=== PATIENT | female | born 1945 | race Caucasian/White ===

== ENCOUNTER 2016-04-06 06:28 | Emergency (ER) | payer MEDICARE, MEDICAID ==
[2016-04-06 08:19] LABS: Hematocrit 42 % (35-47); Hemoglobin 14.2 g/dl (12.0-16.0); Mean Corpuscular HGB Conc 34 g/dl (31-36); Mean Corpuscular Hemoglobin 30 pg (27-31); Mean Corpuscular Volume 89 fL (80-97); Mean Platelet Volume 9 um3 (7.4-10.4); Red Cell Distribution Width 14 % (10.5-15); White Blood Count 9.3 10^3/ul (3.5-10.8)
[2016-04-06 08:22] LABS: Urine Bilirubin Negative (Negative); Urine Glucose 3+(>=500 mg/dL) (Negative); Urine Nitrite Negative (Negative)
--- NOTE | 2016-04-06 08:28 | RAD ---
Indication: Fall from leg weakness, back pain. CT of the lumbar spine was obtained in the axial plane. Sagittal and coronal reconstructed images were obtained. The vertebral bodies appear normal in height. Mild levoscoliosis centered at L2-L3 is noted. No compression fracture is noted. At L5-S1 there is no disc protrusion. No central or foraminal stenosis is noted. Mild facet arthropathy is noted. At L4-L5 no disc protrusion is noted. No central or foraminal stenosis is noted. At L3-L4 degenerative disc disease with broad-based protrusion flattens the thecal sac. No definite foraminal stenosis is noted although mild ligamentous hypertrophy is noted with likely mild spinal stenosis at the L3-L4 level. At L2-L3 vacuum disc phenomenon is noted. Broad-based protrusion flattens the thecal sac. Mild facet and ligamentous hypertrophy is noted. Mild spinal stenosis is noted. At L1-L2 are based protrusion flattens the thecal sac. No central or foraminal stenosis is identified. At T12-L1 degenerative disc disease with spondylytic ridge flattens the thecal sac. IMPRESSION: NO FRACTURE IS NOTED. DEGENERATIVE DISC DISEASE AT L3-L4 WITH BROAD-BASED PROTRUSION AND MILD SPINAL STENOSIS. L2-L3 DEGENERATIVE DISC DISEASE WITH BROAD-BASED PROTRUSION WITH MILD SPINAL STENOSIS. DEGENERATIVE DISC DISEASE AT L1-L2 IS NOTED WITH BROAD-BASED PROTRUSION.
[2016-04-06 08:30] LABS: BUN/Creatinine Ratio 16.7 (8-20); C Reactive Protein 3.62 mg/L (< 5.00); Calcium 9.2 mg/dL (8.6-10.3); EGFR Non-African American 80.1 (>60); Globulin 2.6 g/dL (2-4); Potassium 3.8 mmol/L (3.5-5.0); Total Bilirubin 0.4 mg/dL (0.2-1.0); Total Protein 6.6 g/dL (6.4-8.9)
--- NOTE | 2016-04-06 10:03 | ED ---
Dex Silva Adam, scribed for Randall Leigh MD on 04/06/16 at 0733 . Complex/Multi-Sys Presentation - HPI Summary HPI Summary: Pt is a 70 year old female presenting with intermittent episodes of losing balance since she fell 1 month ago. She states that as she was standing up from the couch 1 month ago she fell over the coffee table. She is unsure what caused her to fall but she was unable to stand up and she was taken by EMS to the hospital for X-Rays which were negative. Since then she has been having daily episodes of losing her balance and falling or feeling like she is going to fall. This morning she fell over as she was standing up from her bed, so she decided to come to the ED. She states that her legs "feel weird". She also has chronic back pain but reports increased pain in her lower back since the fall 1 month ago. PMHx of herniated discs, DM, and cardiac stents. - History Of Current Complaint Chief Complaint: EDWeakness Time Seen by Provider: 04/06/16 07:21 Hx Obtained From: Patient Onset/Duration: Gradual Onset, Lasting Weeks, Still Present Timing: Constant Severity Currently: Moderate Severity Initially: Moderate Location: Pain At: - Lower back Aggravating Factor(s): Ambulation Alleviating Factor(s): Nothing Associated Signs And Symptoms: Positive: Dizziness, Back Pain, Remote Trauma - Fall 1 month ago, Other - "Legs feel weird" - Allergies/Home Medications Allergies/Adverse Reactions: Allergies Allergy/AdvReac Type Severity Reaction Status Date / Time Tetanus Toxoid Allergy Severe Hives Verified 02/16/14 10:01 Ibuprofen Allergy Rash Verified 02/16/14 10:01 Lisinopril Allergy Swelling Verified 04/06/16 06:49 Of Face,Lips,& Throat Metronidazole [From Flagyl] AdvReac Diarrhea Verified 02/16/14 10:01 Sulfa Antibiotics AdvReac Vomiting Verified 02/16/14 10:01 STEROID AdvReac Severe ELEVATE Uncoded 02/16/14 10:01 BLOOD SUGAR BETA BLOCKERS AdvReac Intermediate Stomach Uncoded 02/16/14 10:01 Cramps PMH/Surg Hx/FS Hx/Imm Hx Endocrine/Hematology History: Reports: Hx Diabetes Denies: Hx Thyroid Disease Cardiovascular History: Denies: Hx Hypertension, Hx Pacemaker/ICD Respiratory History: Denies: Hx Asthma, Hx Chronic Obstructive Pulmonary Disease (COPD) GI History: Reports: Other GI Disorders - acid reflux Denies: Hx Ulcer Musculoskeletal History: Reports: Other Musculoskeletal History - hx of bulging discs and sciatic nerve problems Denies: Hx Scoliosis Sensory History: Denies: Hx Contacts or Glasses, Hx Hearing Aid Opthamlomology History: Denies: Hx Contacts or Glasses Neurological History: Denies: Hx Headaches, Other Neuro Impairments/Disorders Psychiatric History: Denies: Hx Panic Disorder - Surgical History Surgery Procedure, Year, and Place: right wrist surgery, titanium bar in place. 3 Cardiac stents -XIENCE V - MRI CONDITIONAL 5 UP TO 3T : 06/11/08 - Immunization History Date of Tetanus Vaccine: UNK Date of Influenza Vaccine: 01/10/16 Infectious Disease History: No Infectious Disease History: Denies: Hx Hepatitis, Hx Human Immunodeficiency Virus (HIV), Traveled Outside the [place] in Last 30 Days - Family History Known Family History: Positive: Cardiac Disease - Father, Diabetes - Mother, Children Family History: FHx of [place] (father) - Social History Occupation: Retired Lives: With Family - Daughter Alcohol Use: None Hx Substance Use: No Substance Use Type: Reports: None Hx Tobacco Use: Yes Smoking Status (MU): Heavy Every Day Tobacco Smoker Type: Cigarettes Amount Used/How Often: 1 ppd Review of Systems Positive: Myalgia - Lower back Neurological: Other - Dizziness, "legs feel weird" All Other Systems Reviewed And Are Negative: Yes Physical Exam Triage Information Reviewed: Yes Vital Signs On Initial Exam: Initial Vitals Temp Pulse Resp BP Pulse Ox 98.0 F 84 17 162/77 96 04/06/16 06:28 04/06/16 06:28 04/06/16 06:28 04/06/16 06:28 04/06/16 06:28 Vital Signs Reviewed: Yes Appearance: Positive: Well-Appearing, No Pain Distress Skin: Positive: Warm, Skin Color Reflects Adequate Perfusion, Dry Head/Face: Positive: Normal Head/Face Inspection Eyes: Positive: Normal ENT: Positive: Normal ENT inspection Neck: Positive: Supple, Nontender Respiratory/Lung Sounds: Positive: Clear to Auscultation, Breath Sounds Present Cardiovascular: Positive: RRR Abdomen Description: Positive: Nontender, Soft Bowel Sounds: Positive: Present Musculoskeletal: Positive: Normal Neurological: Positive: Normal, Sensory/Motor Intact, Alert, Oriented to Person Place, Time Psychiatric: Positive: Normal, Affect/Mood Appropriate - [place] Coma Scale Coma Scale Total: 15 Diagnostics - Vital Signs Vital Signs Temp Pulse Resp BP Pulse Ox 04/06/16 06:28 98.0 F 84 17 162/77 96 - Laboratory Lab Results: Lab Results 04/06/16 04/06/16 04/06/16 Range/Units 07:56 07:56 08:01 WBC 9.3 (3.5-10.8) 10^3/ul RBC 4.70 (4.0-5.4) 10^6/ul Hgb 14.2 (12.0-16.0) g/dl Hct 42 (35-47) % MCV 89 (80-97) fL MCH 30 (27-31) pg MCHC 34 (31-36) g/dl RDW 14 (10.5-15) % Plt Count 176 (150-450) 10^3/ul MPV 9 (7.4-10.4) um3 Neut % (Auto) 75.8 (38-83) % Lymph % (Auto) 15.5 L (25-47) % [place] % (Auto) 7.2 (1-9) % Eos % (Auto) 1.1 (0-6) % Baso % (Auto) 0.4 (0-2) % Absolute Neuts (auto) 7.0 (1.5-7.7) 10^3/ul Absolute Lymphs (auto) 1.4 (1.0-4.8) 10^3/ul Absolute Monos (auto) 0.7 (0-0.8) 10^3/ul Absolute Eos (auto) 0.1 (0-0.6) 10^3/ul Absolute Basos (auto) 0 (0-0.2) 10^3/ul Absolute Nucleated RBC 0 10^3/ul Nucleated RBC % 0 Sodium 135 (133-145) mmol/L Potassium 3.8 (3.5-5.0) mmol/L Chloride 102 (101-111) mmol/L Carbon Dioxide 28 (22-32) mmol/L Anion Gap 5 (2-11) mmol/L BUN 12 (6-24) mg/dL Creatinine 0.72 (0.51-0.95) mg/dL Est GFR ( Amer) 103.0 (>60) Est GFR (Non-Af Amer) 80.1 (>60) BUN/Creatinine Ratio 16.7 (8-20) Glucose 220 H (70-100) mg/dL Calcium 9.2 (8.6-10.3) mg/dL Total Bilirubin 0.40 (0.2-1.0) mg/dL AST 14 (13-39) U/L ALT 16 (7-52) U/L Alkaline Phosphatase 68 (34-104) U/L C-Reactive Protein 3.62 (< 5.00) mg/L Total Protein 6.6 (6.4-8.9) g/dL Albumin 4.0 (3.2-5.2) g/dL Globulin 2.6 (2-4) g/dL Albumin/Globulin Ratio 1.5 (1-3) Urine Color Yellow Urine Appearance Clear Urine pH 5.0 (5-9) Ur Specific [place] 1.008 L (1.010-1.030) Urine Protein Negative (Negative) Urine Ketones Negative (Negative) Urine Blood Negative (Negative) Urine Nitrate Negative (Negative) Urine Bilirubin Negative (Negative) Urine Urobilinogen Negative (Negative) Ur Leukocyte Esterase Negative (Negative) Urine Glucose 3+(>=500 mg/dl) H (Negative) Result Diagrams: 04/06/16 07:56 04/06/16 07:56 Lab Statement: Any lab studies that have been ordered have been reviewed, and results considered in the medical decision making process. - CT Lumbar Spine CT Interpretation Completed By: Radiologist - IMPRESSION: NO FRACTURE IS NOTED. DEGENERATIVE DISC DISEASE AT L3-L4 WITH BROAD-BASED PROTRUSION AND MILD SPINAL STENOSIS. L2-L3 DEGENERATIVE DISC DISEASE WITH BROAD-BASED PROTRUSION WITH MILD SPINAL STENOSIS. DEGENERATIVE DISC DISEASE AT L1-L2 IS NOTED WITH BROAD- BASED PROTRUSION. - Additional Comments Diagnostic Additional Comments: Glucose - 220 Complex Multi-Symp Course/Dx Course Of Treatment: Ms. Georges presented with essentially two C/O. Low back pain that has been worse since her fall a couple months ago and vague episodes of loss of balance occuring in the same time frame. She denies legs giving out or weakness. A CT of her lumbar spine showed no acute injury but severe arthritic changes. She was given a prescription for out-patient MRI of her brain to evaluate her balance issues. - Diagnoses Provider Diagnoses: Low back pain Discharge - Discharge Plan Condition: Stable Disposition: HOME Patient Education Materials: Back Pain (ED) Referrals: Eugene Chavis MD [Medical Doctor] - Additional Instructions: Follow up with Dr. Chavis. Call Central Scheduling at to schedule outpatient MRI. The documentation as recorded by the Dex altamirano Adam accurately reflects the service I personally performed and the decisions made by me, Randall Leigh MD.
[2016-04-06 11:24] VITALS: BP 176/76
== END 2016-04-06 10:00 | disposition home or self-care (01) ==
LOC: ED 06:28
DX: M54.5 Low back pain (principal); F17.210 Nicotine dependence, cigarettes, uncomplicated
CPT/HCPCS: 36415; 72131; 80053; 81003; 85025; 86140

== ENCOUNTER 2016-04-08 07:36 | Inpatient (IN) | payer MEDICARE, MEDICAID ==
[2016-04-08] MEDS ORDERED: Aspirin Low Dose CHEW TAB* 81 MG ONE (09:04)
[2016-04-08] MEDS ORDERED: Aspirin Low Dose CHEW TAB* 81 MG PO ONE (09:07)
[2016-04-08 11:58] LABS: Hematocrit 42 % (35-47); Hemoglobin 13.8 g/dl (12.0-16.0); Mean Corpuscular HGB Conc 33 g/dl (31-36); Mean Corpuscular Hemoglobin 30 pg (27-31); Mean Corpuscular Volume 89 fL (80-97); Mean Platelet Volume 9 um3 (7.4-10.4); Red Blood Count 4.67 10^6/ul (4.0-5.4); Red Cell Distribution Width 15 % (10.5-15); White Blood Count 8.5 10^3/ul (3.5-10.8)
[2016-04-08 12:10] LABS: Albumin 4.2 g/dL (3.2-5.2); BUN/Creatinine Ratio 13.6 (8-20); Calcium 9.5 mg/dL (8.6-10.3); EGFR African American 89.9 (>60); EGFR Non-African American 69.9 (>60); Globulin 2.5 g/dL (2-4); Total Bilirubin 0.5 mg/dL (0.2-1.0); Total Protein 6.7 g/dL (6.4-8.9)
[2016-04-08 12:15] LABS: Troponin I 0.01 ng/mL (<0.04)
--- NOTE | 2016-04-08 12:25 | RAD ---
INDICATION: Weakness COMPARISON: May 13, 2014 TECHNIQUE: An AP portable view obtained at 1215 hours is submitted. FINDINGS: Bones/Soft Tissues: There are no acute bony findings. Cardiomediastinal: The cardiomediastinal silhouette is normal. Lungs: There are no infiltrates. Pleura: There are no pleural effusions. Other: None IMPRESSION: NO ACTIVE DISEASE
[2016-04-08] MEDS ORDERED: Dextrose 50% Syringe 50 ML* 25 GM/50 ML SYRINGE IV PUSH PRN (13:01)
--- NOTE | 2016-04-08 13:18 | RAD ---
INDICATION: Neck pain weakness COMPARISON: None TECHNIQUE: Noncontrast axial source images was performed from the skull base to the thoracic inlet. Coronal and and sagittal reformatted images were generated. FINDINGS: Vertebrae: There is no fracture or acute focal bony lesion. There are arthritic changes with mild disc space narrowing at C4-C5 and moderate narrowing about C5-C6. There is anterior vertebral spur formation and uncinate process spurring both levels leading to mild bilateral foraminal narrowing. There is posterior spondylitic formation as well into mild decrease in AP diameter canal. Alignment: The craniocervical junction appears normal. The cervical vertebrae are normally aligned. Central Canal: There are no significant CT abnormalities of the central canal or foramina. MR imaging is a more sensitive method to evaluate the canal and foramina. Intervertebral disc spaces: The disc spaces are maintained. Brain: The visualized brain appears unremarkable. Soft tissues: The visualized soft tissue elements of the neck are unremarkable. The prevertebral soft tissues appear normal. The lung apices are clear. IMPRESSION: MILD TO MODERATE MIDCERVICAL OSTEOARTHRITIC FINDINGS.
[2016-04-08] MEDS ORDERED: Atorvastatin* 80 MG TAB PO ONE (14:40)
--- NOTE | 2016-04-08 15:28 | ED ---
Lara Silva Anna, scribed for Greg Diehl MD on 04/08/16 at 0823 . Lower Extremity - HPI Summary HPI Summary: Patient is a 70 y/o female coming to [facility] presenting with worsening leg weakness that began two months ago. She reports no pain, but she is not able to lift her leg when she tries. This is worse in her left leg than her right leg. She also has trouble staying up when she is sitting. She took an abx prescribed from [place] at Dr. Langford office two months ago for an ear infection and attributes the beginning of the symptoms to that time. She was also prescribed Lisinopril for HTN and received PNA and flu shots at that time. She says loss of mobility is one of the side effects of the abx. She reports angioedema of her neck and edema of her throat. She additionally reports left arm weakness that began yesterday. She reports some numbness in her legs as a result of her DM. She denies numbness in abd, CP, SOB, changes in urination, changes in BM, or ear pain. Before this, on January 10, she fell from a standing position and hit her head and the right side of her body on a hard but carpeted floor. Her CT results at that time revealed nothing abnormal. Hx of DM, HTN, cardiac stents, and herniated discs. IF THERE IS ONE, PLEASE SEE DICTATION BY DR. DIEHL FOR FURTHER INFORMATION. - History of Current Complaint Chief Complaint: EDExtremityLower Stated Complaint: DIFF WALKING Time Seen by Provider: 04/08/16 08:00 Hx Obtained From: Patient Onset/Duration: Still Present Pain Intensity: 0 Pain Scale Used: 0-10 Numeric Timing: Constant, Lasting Weeks Associated Signs And Symptoms: Positive: Weakness Aggravating Factor(s): Ambulation - Allergies/Home Medications Allergies/Adverse Reactions: Allergies Allergy/AdvReac Type Severity Reaction Status Date / Time Tetanus Toxoid Allergy Severe Hives Verified 04/08/16 13:17 Ibuprofen Allergy Rash Verified 04/08/16 13:17 Lisinopril Allergy Swelling Verified 04/08/16 13:17 Of Face,Lips,& Throat Metronidazole [From Flagyl] AdvReac Diarrhea Verified 04/08/16 13:17 Sulfa Antibiotics AdvReac Vomiting Verified 04/08/16 13:17 STEROID AdvReac Severe ELEVATE Uncoded 04/08/16 13:17 BLOOD SUGAR BETA BLOCKERS AdvReac Intermediate Stomach Uncoded 04/08/16 13:17 Cramps PMH/Surg Hx/FS Hx/Imm Hx Endocrine/Hematology History: Reports: Hx Diabetes Denies: Hx Thyroid Disease Cardiovascular History: Reports: Hx Hypertension - recent onset, about 2 months ago Denies: Hx Pacemaker/ICD Respiratory History: Denies: Hx Asthma, Hx Chronic Obstructive Pulmonary Disease (COPD) GI History: Reports: Other GI Disorders - acid reflux Denies: Hx Ulcer Musculoskeletal History: Reports: Other Musculoskeletal History - hx of bulging discs and sciatic nerve problems Denies: Hx Scoliosis Sensory History: Denies: Hx Contacts or Glasses, Hx Hearing Aid Opthamlomology History: Denies: Hx Contacts or Glasses Neurological History: Denies: Hx Headaches, Other Neuro Impairments/Disorders Psychiatric History: Denies: Hx Panic Disorder - Surgical History Surgery Procedure, Year, and Place: right wrist surgery, titanium bar in place. 3 Cardiac stents -XIENCE V - MRI CONDITIONAL 5 UP TO 3T : 06/11/08 - Immunization History Date of Tetanus Vaccine: UNK Date of Influenza Vaccine: 01/10/16 Infectious Disease History: No Infectious Disease History: Denies: Hx Hepatitis, Hx Human Immunodeficiency Virus (HIV), Traveled Outside the [place] in Last 30 Days - Family History Known Family History: Positive: Cardiac Disease - Father, Diabetes - Mother, Children Family History: FHx of [place] (father) - Social History Occupation: Retired Lives: With Family Alcohol Use: None Hx Substance Use: No Substance Use Type: Reports: None Hx Tobacco Use: Yes Smoking Status (MU): Heavy Every Day Tobacco Smoker Type: Cigarettes Amount Used/How Often: 1 ppd Review of Systems Constitutional: Negative Eyes: Negative ENT: Other - edema of throat Cardiovascular: Negative Respiratory: Negative Gastrointestinal: Negative Genitourinary: Negative Positive: Edema - neck Skin: Negative Positive: Weakness - bilateral lower extremities and left arm, Numbness - bilateral legs, baseline with DM Psychological: Normal All Other Systems Reviewed And Are Negative: Yes - Comments Additional Review of Systems Comments: IF THERE IS ONE, PLEASE SEE DICTATION BY DR. DIEHL FOR FURTHER INFORMATION. Physical Exam - Summary Physical Exam Summary: GENERAL: Awake, alert, oriented, no acute distress, very pleasant, normal phonation HEENT: Head is normocephalic, atraumatic, pupils equal round reactive to light, no photophobia, extraocular muscles intact, no facial droop, anicteric sclera, pink conjunctiva, mucous membranes moist, no erythema, no discharge, no lesions , neck is soft, neck is supple, no carotid bruit , trachea is midline, no JVD. CARDIAC: Regular rate and rhythm, S1, S2, no rub, no murmur, no gallop, 2+ radial and pedal pulses bilaterally RESPIRATORY: Clear to auscultation bilaterally with no rales, rhonchi, or wheezes, non-tender ABDOMEN: Bowel sounds positive, no bruit, soft non-tender, no CVA tenderness, normal rectal tone. EXTREMITIES: No edema, warm, dry, 2+ pulses NEUROLOGICAL: Cranial nerves II through XII intact five out of five flexor and extensor strength in upper extremities symmetrically, 2+ DTRs in upper extremities symmetrically, 4/5 stregnth right hip flexior and extendors, 4/5 right knee flex and extendor, 4/5 right ankle flenor and extendor. 3/5 flexor and extendor strength left hip, 4/5 flexor and extendor left knee, 4/5 flexor and extendor left ankle. 2+ pateller dtr bilat, 2+ ankle dtr bilat, pronator drift, n, normal rapid alternating movements, downgoing Babinski, equal sensation bilat lower extremities. symmentric vibratory sensation bilat. Triage Information Reviewed: Yes Vital Signs On Initial Exam: Initial Vitals Temp Pulse Resp BP Pulse Ox 99.5 F 85 16 174/84 93 04/08/16 07:38 04/08/16 07:38 04/08/16 07:38 04/08/16 07:38 04/08/16 07:38 Vital Signs Reviewed: Yes - [place] Coma Scale Coma Scale Total: 15 Diagnostics - Vital Signs Vital Signs Temp Pulse Resp BP Pulse Ox 04/08/16 07:38 99.5 F 85 16 174/84 93 - Laboratory Lab Results: Lab Results 04/08/16 04/08/16 04/08/16 Range/Units 11:45 11:45 11:45 WBC 8.5 (3.5-10.8) 10^3/ul RBC 4.67 (4.0-5.4) 10^6/ul Hgb 13.8 (12.0-16.0) g/dl Hct 42 (35-47) % MCV 89 (80-97) fL MCH 30 (27-31) pg MCHC 33 (31-36) g/dl RDW 15 (10.5-15) % Plt Count 207 (150-450) 10^3/ul MPV 9 (7.4-10.4) um3 Neut % (Auto) 72.2 (38-83) % Lymph % (Auto) 17.9 L (25-47) % [place] % (Auto) 7.8 (1-9) % Eos % (Auto) 1.3 (0-6) % Baso % (Auto) 0.8 (0-2) % Absolute Neuts (auto) 6.1 (1.5-7.7) 10^3/ul Absolute Lymphs (auto) 1.5 (1.0-4.8) 10^3/ul Absolute Monos (auto) 0.7 (0-0.8) 10^3/ul Absolute Eos (auto) 0.1 (0-0.6) 10^3/ul Absolute Basos (auto) 0.1 (0-0.2) 10^3/ul Absolute Nucleated RBC 0 10^3/ul Nucleated RBC % 0 INR (Anticoag Therapy) 0.94 (0.89-1.11) APTT 28.8 (26.0-36.3) seconds Sodium 136 (133-145) mmol/L Potassium 4.0 (3.5-5.0) mmol/L Chloride 101 (101-111) mmol/L Carbon Dioxide 28 (22-32) mmol/L Anion Gap 7 (2-11) mmol/L BUN 11 (6-24) mg/dL Creatinine 0.81 (0.51-0.95) mg/dL Est GFR ( Amer) 89.9 (>60) Est GFR (Non-Af Amer) 69.9 (>60) BUN/Creatinine Ratio 13.6 (8-20) Glucose 183 H (70-100) mg/dL Lactic Acid (0.5-2.0) mmol/L Calcium 9.5 (8.6-10.3) mg/dL Total Bilirubin 0.50 (0.2-1.0) mg/dL AST 15 (13-39) U/L ALT 17 (7-52) U/L Alkaline Phosphatase 62 (34-104) U/L Total Creatine Kinase 120 (10-223) U/L CK-MB (CK-2) 5.0 (0.6-6.3) ng/mL Myoglobin 95.0 H (14.3-65.8) ng/mL Troponin I 0.01 (<0.04) ng/mL B-Natriuretic Peptide ( - 100) pg/mL Total Protein 6.7 (6.4-8.9) g/dL Albumin 4.2 (3.2-5.2) g/dL Globulin 2.5 (2-4) g/dL Albumin/Globulin Ratio 1.7 (1-3) Triglycerides 206 mg/dL Cholesterol 259 mg/dL LDL Cholesterol 181 mg/dL HDL Cholesterol 37.0 mg/dL 04/08/16 04/08/16 Range/Units 11:45 11:45 WBC (3.5-10.8) 10^3/ul RBC (4.0-5.4) 10^6/ul Hgb (12.0-16.0) g/dl Hct (35-47) % MCV (80-97) fL MCH (27-31) pg MCHC (31-36) g/dl RDW (10.5-15) % Plt Count (150-450) 10^3/ul MPV (7.4-10.4) um3 Neut % (Auto) (38-83) % Lymph % (Auto) (25-47) % [place] % (Auto) (1-9) % Eos % (Auto) (0-6) % Baso % (Auto) (0-2) % Absolute Neuts (auto) (1.5-7.7) 10^3/ul Absolute Lymphs (auto) (1.0-4.8) 10^3/ul Absolute Monos (auto) (0-0.8) 10^3/ul Absolute Eos (auto) (0-0.6) 10^3/ul Absolute Basos (auto) (0-0.2) 10^3/ul Absolute Nucleated RBC 10^3/ul Nucleated RBC % INR (Anticoag Therapy) (0.89-1.11) APTT (26.0-36.3) seconds Sodium (133-145) mmol/L Potassium (3.5-5.0) mmol/L Chloride (101-111) mmol/L Carbon Dioxide (22-32) mmol/L Anion Gap (2-11) mmol/L BUN (6-24) mg/dL Creatinine (0.51-0.95) mg/dL Est GFR ( Amer) (>60) Est GFR (Non-Af Amer) (>60) BUN/Creatinine Ratio (8-20) Glucose (70-100) mg/dL Lactic Acid 1.5 (0.5-2.0) mmol/L Calcium (8.6-10.3) mg/dL Total Bilirubin (0.2-1.0) mg/dL AST (13-39) U/L ALT (7-52) U/L Alkaline Phosphatase (34-104) U/L Total Creatine Kinase (10-223) U/L CK-MB (CK-2) (0.6-6.3) ng/mL Myoglobin (14.3-65.8) ng/mL Troponin I (<0.04) ng/mL B-Natriuretic Peptide 69 ( - 100) pg/mL Total Protein (6.4-8.9) g/dL Albumin (3.2-5.2) g/dL Globulin (2-4) g/dL Albumin/Globulin Ratio (1-3) Triglycerides mg/dL Cholesterol mg/dL LDL Cholesterol mg/dL HDL Cholesterol mg/dL Result Diagrams: 04/08/16 11:45 04/08/16 11:45 Lab Statement: Any lab studies that have been ordered have been reviewed, and results considered in the medical decision making process. - Radiology CXR Xray Interpretation: No Acute Changes Radiology Interpretation Completed By: Radiologist - CT C-SPINE CT CT Interpretation: Positive (See Comments) CT Interpretation Completed By: Radiologist - IMPRESSION: MILD TO MODERATE MIDCERVICAL OSTEOARTHRITIC FINDINGS. - EKG 13:13 Cardiac Rate: NL - 81 BPM EKG Rhythm: Sinus Rhythm EKG Interpretation: NSR, NO ACUTE ISCHEMIA Lower Extremity Course/Dx - Course Course Of Treatment: 70 year old female with2 months progressiv elower extremity weakness, worse in last several days, no addition al trauma, normal rectal tone, left hip flexor extendor weakness, unable to ambulate. Seen by Dr. Lopes will admit - Diagnoses Provider Diagnoses: LEFT LOWER EXTREMITY WEAKNESS - Physician Notifications Discussed Care of Patient With: Dr. Lopes (neurologist) at 8:48. Dr. Lopes will see the patient. Dr. Kelley (hospitalist) at 11:55. Accepts patient for admission. Discharge - Discharge Plan Condition: Stable Disposition: ADMITTED TO [facility] documentation as recorded by the Lara altamirano Anna accurately reflects the service I personally performed and the decisions made by , Greg Diehl MD.
[2016-04-08] MEDS: Heparin VIAL(*) 5000 UNITS/ML VIAL (FIVE THOUSAND) SUBCUT SCH ×2 (15:47→21:40)
[2016-04-08] MEDS ORDERED: Nicotine Inhaler* 10 MG AMP INH PRN (16:07)
[2016-04-08] MEDS ORDERED: Nicotine Lozenge* 4 MG LOZENGE MT PRN (16:07)
[2016-04-08] MEDS ORDERED: Nicotine GUM* 2 MG PO PRN (16:07)
--- NOTE | 2016-04-08 16:39 | CONS ---
NEUROLOGY CONSULTATION: DATE OF CONSULT: 04/08/16 LOCATION: The patient is in the emergency department. REQUESTING PHYSICIAN: Dr. Diehl. REASON FOR CONSULT: Left-sided weakness. HISTORY OF PRESENT ILLNESS: Amelie Georges is a 70-year-old woman with a history of diabetes mellitus that has been poorly controlled recently as well as longstanding smoking history and cardiac disease, who presents to the emergency department for the second time in two days with complaints of difficulty walking and weakness. She has a somewhat difficult time recalling exactly when this started, but reports that her difficulties walking and in particular with weakness on her left side and in her left leg began rather suddenly when she woke up from a nap and fell over her coffee table striking her head and her shoulder on the right side against her entertainment center. This occurred on January 10 and she was seen in the emergency department here at that time. Since then, she has had progressive difficulty walking, says that her left leg feels "weird" and seems to also has some weakness in the left arm. She is not a very precise informant, so it is difficult to tell when the weakness in the arm began. She denies any weakness in the right leg or right arm, or any changes in her face. She does not seem to have any sensory changes in the arms or the legs, but again does report the extremity feels "weird" and also seems that she is having some coordination difficulties. She has been falling on a rather regular basis at home and some neighbors bought her a walker to use recently, but with her progressive difficulties ambulating at home , she presented to the emergency department. Two days ago when she was seen, she underwent a lumbar spine CT which showed degenerative changes and mild stenosis at the L2-3 and L3-4 levels. Today, she seems to feel like there is more trouble with her walking and with her left arm and so she presented again to the emergency department for further evaluation and a Neurology consult was requested. She denies any dizziness, speech or language difficulties, difficulty swallowing, headache, neck trauma. She has had no associated visual changes. There has been no pain associated with her weakness, including no new back or neck pain. She denies a past history of stroke or any similar problems in the past. PAST MEDICAL HISTORY: 1. Type 2 diabetes with a recent A1c of 9.0 in February. 2. Right wrist injury, status post surgery. 3. Coronary artery disease, status post stents. MEDICATIONS: Home medications: 1. Metformin. 2. Aspirin 81 mg daily. 3. Tylenol as needed. ALLERGIES: 1. IBUPROFEN causes rash. 2. LISINOPRIL causes swelling of the face and lips. 3. FLAGYL causes diarrhea. 4. SULFA causes vomiting. 5. STEROIDS cause elevated blood sugars. 6. TETANUS SHOT causes hives. 7. BETA-BLOCKERS cause stomach cramps. 8. The patient reported CT CONTRAST caused diarrhea. FAMILY HISTORY: There is a history of cardiac disease in the father, diabetes in the mother, and her children. Her son who was 52 years old recently from a GI cancer in January. SOCIAL HISTORY: She is one pack a day smoker since the age of 14. She denies alcohol use. She lives alone. She is retired from [employer]. REVIEW OF SYSTEMS: She denies recent weight loss, appetite changes, bowel or bladder changes. She denies any back or neck pain or muscle aches. She does note that today on my examination, her foot seems to want to "pull" when touched. PHYSICAL EXAM: Vital Signs: Temperature 99.5, blood pressure 174/84, heart rate 85, oxygen saturation 93% on room air. On general examination, she is nontoxic-appearing. Heart revealed a regular rate and rhythm with no murmurs, rubs, or gallops. Lungs: Auscultation revealed some wheezing bilaterally. There are no carotid bruits. There is an ecchymosis noted over the left patella. She is unable to flex or extend the right wrist due to prior surgery. On neurologic examination, her mental status is normal. Speech is fluent without any obvious dysarthria or aphasia. On cranial nerve testing, pupils are equal, round and reactive from 4 to 2 mm bilaterally. Funduscopic exam is benign. Versions are full without nystagmus. Visual aguilera were full to confrontation with no extinction to double simultaneous stimulation. Facial sensation was intact to light touch in the V1 through V3 distributions bilaterally. Facial musculature is full and symmetric. Palate elevates symmetrically and the tongue is midline. On motor testing, there is normal tone in the upper extremities, but the lower extremities are spastic bilaterally. Strength in the right upper extremity is 5/5 proximally and distally. In the left upper extremity, there is 4+ weakness of the left deltoid and biceps and otherwise full strength. There is pronator drift on the left. In the lower extremities, there is approximately 4+ weakness of the right hip flexor and the left hip flexor is approximately grade 2 in that she is unable to lift the heel off the bed. The distal right lower extremity is full strength. The left lower extremity knee flexion is a grade 2 to 3, knee extension 4, ankle dorsiflexion approximately at 3. At rest, her left lower extremity is externally rotated. On sensory testing, there is no obvious sensory deficit to pinprick in the upper and lower extremities. Proprioception was intact in the great toes bilaterally though answers perhaps a little delayed in the left great toe. Vibration was intact to 13 seconds in the right great toe and 9 seconds in the left great toe. Reflexes are 2+ in the biceps and brachioradialis and triceps, 3+ at the patellas with adduction response and 2+ at the ankles with upgoing toes bilaterally. On coordination testing, she was unable to perform heel- to-norman with the left leg due to weakness, but there seemed to be some mild dysmetria on heel-to- norman on the right and there was dysmetria on [id number] in the left greater than right upper extremities. She was not ambulated at this time. DIAGNOSTIC STUDIES/LAB DATA: Laboratory testing: Labs from April 06 were reviewed and were just notable for an elevated blood glucose of 220, normal liver functions, normal complete blood counts. CRP was 3.62 and her urinalysis was notable for 3+ glucose. Hemoglobin A1c on March 12 was 9.0. In addition , she had a lipid profile checked on March 12, which showed LDL of 170, total cholesterol 246, triglycerides 206, and HDL 34.6. Recent TSH in December was 1.14. Lumbar spine CT was reviewed as noted in the HPI. In addition when the patient was here on 01/11/16, she had an MRI of the orbits , face, and neck due to a question of a tonsillar collection and it showed a small loculated fluid collection of the right palatine tonsils without edema or enhancement, which was thought to be suggestive of a mucous retention cyst or dilated tonsillar crypts. IMPRESSION: Amelie Georges is a 70-year-old woman with a history of diabetes, coronary artery disease, and longstanding smoking history who presents to the emergency department with left-sided weakness with exam findings notable for upper motor neuron pattern of weakness in the arm and legs. The onset and timing of her symptoms is not entirely clear, possibly subacute. There is no obvious facial involvement but there is increased tone in the lower extremities and ataxia in the upper and lower extremities. Findings are concerning for either stroke or perhaps some myelopathy, the later especially given her lack of facial findings, but the ataxia raises the possibility of cerebellar involvement. She will be admitted by the hospitalists and should undergo MRI of the brain and cervical spine with and without contrast. I have requested that a chest x-ray be done given her longstanding smoking history. No additional labs are needed just yet given that she had these 2 days ago and her renal function is adequate for her to receive contrast. I clarified with her that she tolerated the MRI contrast that was given in December without difficulty. She should be continued on her baby aspirin at this time. Thank you for this consultation. I will follow the patient along with you. [id number]/[facility] #: [id number] BAILEY
[2016-04-08] MEDS: Insulin LISPRO* 1 UNITS UNIT SUBCUT SCH (17:46)
--- NOTE | 2016-04-08 21:00 | HP ---
HISTORY AND PHYSICAL: DATE OF ADMISSION: 04/08/16 PRIMARY CARE PHYSICIAN: Dr. Hicks. ATTENDING PHYSICIAN: Giovanni Kelley MD * (dictation provided by Lluvia Simeon NP) CHIEF COMPLAINT: Fall and inability to get up with lower extremity weakness. HISTORY OF PRESENT ILLNESS: Ms. Georges is a 70-year-old female with a past medical history of diabetes and coronary artery disease with stent placement x3 , who presents to the hospital today after a fall with inability to get up. Ms. Georges states that she has had about 2 months of weakness in her lower extremities. She herself connects it to a period of time in December when she was on antibiotics for an ear infection. She states "all my trouble started after that." The patient states that she has had 3 episodes of falling in the past week. She seems to fall for no clear reason but then once on the ground, she is not able to get up. She also reports some left upper extremity weakness but she does not think it is very pronounced. She denies any other complaints including chest pain, shortness of breath, nausea or abdominal pain. She states she has been eating and drinking normally. She is having normal formed bowel movements and urinating normally. In the emergency room, Ms. Georges had labs, which were unremarkable. She had a chest x-ray, which was unremarkable, and an EKG, which showed sinus rhythm. Based on her ongoing complaints of weakness, Neurology was consulted. They noted that she had some pronator drift on her left upper extremity and clear weakness in bilateral lower extremities, left greater than right. Dr. Lopes has noted concern for possible CVA versus myelopathy. Hospital Medicine was called regarding admission. PAST MEDICAL HISTORY: 1. Type 2 diabetes, non-insulin dependent. 2. Coronary artery disease with stent placement x3. 3. Long-term tobacco use. MEDICATIONS: 1. Aspirin 81 mg p.o. daily. 2. Metformin 500 mg p.o. b.i.d. FAMILY HISTORY: Reviewed and noncontributory. SOCIAL HISTORY: Again, the patient is a smoker. She smokes 1 to 2 packs of cigarettes per day. She started smoking at age 14. She denies any alcohol or drug use. She states that her daughter, Anna, would be the healthcare proxy. REVIEW OF SYSTEMS: A 14-point review of systems is completed on Ms. Georges and all those not mentioned above were negative. PHYSICAL EXAMINATION GENERAL: Ms. Georges is lying in the bed. She is in no acute distress. VITAL SIGNS: Temperature 98.3, pulse rate 81, respiratory rate 18, O2 saturation 96% on room air, blood pressure 156/79. LUNGS: Clear to auscultation bilaterally with no accessory muscle use and good aeration. HEART: S1, S2. No murmur, rub or gallop and regular. ABDOMEN: Soft and nontender with bowel sounds positive x4. EXTREMITIES: No cyanosis or edema. NEUROLOGIC: She is alert and oriented x3. She has clear pronator drift on the left. She is able to lift the right leg easily from the bed but unable to pick the left foot from the bed at all. There is no facial asymmetry or focal weakness. Extraocular movements are intact. SKIN: Intact. DIAGNOSTIC STUDIES/LAB DATA: Sodium 136, potassium 4.0, chloride 101, serum bicarbonate 28, BUN 11, creatinine 0.81, glucose 183, and lactic acid 1.5. Troponin 0.01. Triglycerides 206, cholesterol 259, LDL 181, HDL 37. WBC 8.5, hemoglobin 13.8, hematocrit 42, platelet count 207. INR 0.94. Lumbar spine CT from 04/06/16 shows no fractures noted. Degenerative disk disease at L3-L4 with broad-based protrusion and mild spinal stenosis. L2-L3 degenerative disk disease with broad-based protrusion with mild spinal stenosis. Degenerative disk disease at L1-L2 is noted with broad-based protrusion. Chest x-ray today shows no acute process. ASSESSMENT AND PLAN: Ms. Georges is a 70-year-old female with a past medical history of coronary artery disease with stent placement x3, diabetes and prolonged smoking, who presents today to the hospital with concern for left- sided weakness and intermittent inability to ambulate. Our plan is for inpatient admission as I expect her length of stay to be greater than 2 days for the following; 1. Left-sided weakness: I appreciate the consultation per Dr. Lopes. She suspects that perhaps the patient has symptoms of cerebrovascular accident or possibly a myelopathy. Her recommendations are that the patient goes for an MRI of the brain and cervical spine with and without contrast, those have been ordered. Given that there is concern for cerebrovascular accident, the patient will have telemetry monitoring, a transthoracic echocardiogram. She has had a lipid profile and I will start atorvastatin for now. She has received aspirin in the emergency room and we will continue on that tomorrow. She will have physical and occupational therapy. She will have neurological checks q.4 hours. 2. Type 2 diabetes: Plan to hold metformin. The patient will have lispro sliding scale with meals and consistent carbohydrate diet. 3. History of coronary artery disease: Plan to continue aspirin. The patient is asymptomatic. 4. Hypertension: Continue metoprolol. 5. DVT prophylaxis with heparin subcu. 6. Disposition to telemetry. 7. Code status is DNR and a MOLST form has been completed with her. TIME SPENT: Approximately 60 minutes were spent in the admission of this patient, more than half the time spent with her at the bedside reviewing the events leading up to and during this hospitalization, performing the physical examination, and reviewing the plan of care. LLUVIA SIMEON NP CC: Dr. Hicks * [id number]/[facility] #: [id number] BAILEY
[2016-04-09] MEDS: Heparin VIAL(*) 5000 UNITS/ML VIAL (FIVE THOUSAND) SUBCUT SCH ×3 (06:04→20:55)
[2016-04-09] MEDS: Insulin LISPRO* 1 UNITS UNIT SUBCUT SCH ×3 (07:46→17:35)
[2016-04-09] MEDS ORDERED: Aspirin TAB* 325 MG PO SCH (09:00)
--- NOTE | 2016-04-09 09:34 | PN ---
Subjective Date of Service: 04/09/16 Interval History: . Patient slightly agitated this morning telling the nurse she may leave "AMA because no one is listening to her". I sat and talked to the patient for appox 30 minutes. Pt reports she feels that her symptoms started when she took levaquin back in the fall for an ear infection and was started on lisinopril/ HCTZ. She reports acute weakness. starting around the time she started the antibiotic. she is confused with dates and has difficulty telling me the exact symptoms. She reports "all of a sudden weakness with falls". This has happened intermittently since that time. No speech difficulties. Denies any upper extremity weakness. She reports good strength in her legs stating "I am so strong I could kick you over" but reports it is when she stands that she "feels off balance". Denies LINCOLN or vision changes. No acute fever or chills or recent URI. Denies dysuria, hematuria or increased frequency. Talked to pt about smoking cessation and she is not interested at this time. Objective Active Medications: Aspirin (Aspirin Tab*) 325 mg PO DAILY [facility] Atorvastatin Calcium (Lipitor*) 80 mg PO 1700 [facility] Dextrose (D50w Syringe 50 Ml*) 12.5 gm IV PUSH .FOR FS < 60 - SS PRN PRN Reason: FS < 60 Heparin Sodium (Porcine) (Heparin Vial(*)) 5,000 units SUBCUT Q8HR [facility] Last Admin: 04/09/16 06:04 Dose: Not Given Insulin Human Lispro (Humalog*) 0 units SUBCUT AC [facility] PRN Reason: Protocol Last Admin: 04/09/16 07:46 Dose: Not Given Nicotine (Nicotine Inhaler*) 10 mg INH Q2H PRN PRN Reason: CRAVING Nicotine Polacrilex (Nicotine Gum*) 2 mg PO Q2H PRN PRN Reason: CRAVING Nicotine Polacrilex (Nicotine Lozenge*) 4 mg MT Q2H PRN PRN Reason: CRAVINGS Vital Signs 04/08/16 04/08/16 04/08/16 13:52 14:45 15:31 Temperature 99.3 F 98.3 F 98.3 F Pulse Rate 84 81 84 Respiratory 16 18 14 Rate Blood Pressure 156/71 156/79 134/75 (mmHg) O2 Sat by Pulse 96 97 Oximetry 04/08/16 04/08/16 04/08/16 16:24 16:49 19:44 Temperature 98.2 F Pulse Rate 81 Respiratory 16 18 14 Rate Blood Pressure 164/68 (mmHg) O2 Sat by Pulse 91 Oximetry 04/08/16 04/08/16 04/09/16 19:47 23:42 03:29 Temperature 98.1 F 98.2 F Pulse Rate 68 79 Respiratory 14 16 16 Rate Blood Pressure 164/71 151/78 (mmHg) O2 Sat by Pulse 93 96 Oximetry 04/09/16 04/09/16 07:16 07:47 Temperature Pulse Rate 84 Respiratory 16 Rate Blood Pressure (mmHg) O2 Sat by Pulse 97 Oximetry Oxygen Devices in Use Now: None Appearance: 70 yo elderly female appears chronically ill, sitting up in a chair in NAD> A+O x3 Eyes: No Scleral Icterus, PERRLA Ears/Nose/Mouth/Throat: NL Teeth, Lips, Gums, Mucous Membranes Moist Neck: NL Appearance and Movements; NL JVP Respiratory: Symmetrical Chest Expansion and Respiratory Effort, Clear to Auscultation Cardiovascular: NL Sounds; No Murmurs; No JVD, RRR, No Edema Abdominal: NL Sounds; No Tenderness; No Distention Extremities: No Edema, No Clubbing, Cyanosis Skin: No Rash or Ulcers, No Nodules or Sclerosis Neurological: Alert and Oriented x 3, NL Sensation, NL Muscle Strength and Tone , - - unsteady gait - pt stood in front of me, which she was able to do independently but had to sit back down within 3 seconds due to instability. Pt had good strength all around. No facial droop. tongue midline. EOM intact. Lines/Tubes/Other Access: Clean, Dry and Intact Peripheral IV Nutrition: Taking PO's Result Diagrams: 04/08/16 11:45 04/08/16 11:45 Additional Lab and Data: Lab Results 04/08/16 04/08/16 04/08/16 Range/Units 11:45 11:45 11:45 WBC 8.5 (3.5-10.8) 10^3/ul RBC 4.67 (4.0-5.4) 10^6/ul Hgb 13.8 (12.0-16.0) g/dl Hct 42 (35-47) % MCV 89 (80-97) fL MCH 30 (27-31) pg MCHC 33 (31-36) g/dl RDW 15 (10.5-15) % Plt Count 207 (150-450) 10^3/ul MPV 9 (7.4-10.4) um3 Neut % (Auto) 72.2 (38-83) % Lymph % (Auto) 17.9 L (25-47) % Sumter % (Auto) 7.8 (1-9) % Eos % (Auto) 1.3 (0-6) % Baso % (Auto) 0.8 (0-2) % Absolute Neuts (auto) 6.1 (1.5-7.7) 10^3/ul Absolute Lymphs (auto) 1.5 (1.0-4.8) 10^3/ul Absolute Monos (auto) 0.7 (0-0.8) 10^3/ul Absolute Eos (auto) 0.1 (0-0.6) 10^3/ul Absolute Basos (auto) 0.1 (0-0.2) 10^3/ul Absolute Nucleated RBC 0 10^3/ul Nucleated RBC % 0 INR (Anticoag Therapy) 0.94 (0.89-1.11) APTT 28.8 (26.0-36.3) seconds Sodium 136 (133-145) mmol/L Potassium 4.0 (3.5-5.0) mmol/L Chloride 101 (101-111) mmol/L Carbon Dioxide 28 (22-32) mmol/L Anion Gap 7 (2-11) mmol/L BUN 11 (6-24) mg/dL Creatinine 0.81 (0.51-0.95) mg/dL Est GFR ( Amer) 89.9 (>60) Est GFR (Non-Af Amer) 69.9 (>60) BUN/Creatinine Ratio 13.6 (8-20) Glucose 183 H (70-100) mg/dL Lactic Acid (0.5-2.0) mmol/L Calcium 9.5 (8.6-10.3) mg/dL Total Bilirubin 0.50 (0.2-1.0) mg/dL AST 15 (13-39) U/L ALT 17 (7-52) U/L Alkaline Phosphatase 62 (34-104) U/L Total Creatine Kinase 120 (10-223) U/L CK-MB (CK-2) 5.0 (0.6-6.3) ng/mL Myoglobin 95.0 H (14.3-65.8) ng/mL Troponin I 0.01 (<0.04) ng/mL B-Natriuretic Peptide ( - 100) pg/mL Total Protein 6.7 (6.4-8.9) g/dL Albumin 4.2 (3.2-5.2) g/dL Globulin 2.5 (2-4) g/dL Albumin/Globulin Ratio 1.7 (1-3) Triglycerides 206 mg/dL Cholesterol 259 mg/dL LDL Cholesterol 181 mg/dL HDL Cholesterol 37.0 mg/dL 04/08/16 04/08/16 Range/Units 11:45 11:45 WBC (3.5-10.8) 10^3/ul RBC (4.0-5.4) 10^6/ul Hgb (12.0-16.0) g/dl Hct (35-47) % MCV (80-97) fL MCH (27-31) pg MCHC (31-36) g/dl RDW (10.5-15) % Plt Count (150-450) 10^3/ul MPV (7.4-10.4) um3 Neut % (Auto) (38-83) % Lymph % (Auto) (25-47) % Sum[place] % (Auto) (1-9) % Eos % (Auto) (0-6) % Baso % (Auto) (0-2) % Absolute Neuts (auto) (1.5-7.7) 10^3/ul Absolute Lymphs (auto) (1.0-4.8) 10^3/ul Absolute Monos (auto) (0-0.8) 10^3/ul Absolute Eos (auto) (0-0.6) 10^3/ul Absolute Basos (auto) (0-0.2) 10^3/ul Absolute Nucleated RBC 10^3/ul Nucleated RBC % INR (Anticoag Therapy) (0.89-1.11) APTT (26.0-36.3) seconds Sodium (133-145) mmol/L Potassium (3.5-5.0) mmol/L Chloride (101-111) mmol/L Carbon Dioxide (22-32) mmol/L Anion Gap (2-11) mmol/L BUN (6-24) mg/dL Creatinine (0.51-0.95) mg/dL Est GFR ( Amer) (>60) Est GFR (Non-Af Amer) (>60) BUN/Creatinine Ratio (8-20) Glucose (70-100) mg/dL Lactic Acid 1.5 (0.5-2.0) mmol/L Calcium (8.6-10.3) mg/dL Total Bilirubin (0.2-1.0) mg/dL AST (13-39) U/L ALT (7-52) U/L Alkaline Phosphatase (34-104) U/L Total Creatine Kinase (10-223) U/L CK-MB (CK-2) (0.6-6.3) ng/mL Myoglobin (14.3-65.8) ng/mL Troponin I (<0.04) ng/mL B-Natriuretic Peptide 69 ( - 100) pg/mL Total Protein (6.4-8.9) g/dL Albumin (3.2-5.2) g/dL Globulin (2-4) g/dL Albumin/Globulin Ratio (1-3) Triglycerides mg/dL Cholesterol mg/dL LDL Cholesterol mg/dL HDL Cholesterol mg/dL Assess/Plan/Problems-Billing Assessment: Ms. Georges is a 70 yo female with a PMH of DM2, CAD s/p stent, long- term tobacco abuse who presents with falls and 2 months of lower extremity weakness in lower extremities and left-sided weakness. - Patient Problems (1) weakness/falls Comment: - CVA vs. myelopathy. Plan for MRI and echo today. - Cervical spine CT negative. - continue asa, statin - PT/OT (2) CAD (coronary artery disease) Comment: - asymptomatic - continue ASA (3) Diabetes 1.5, managed as type 2 Comment: - Hold Metformin, Continue FSBG AC with Lispro SS (4) HTN (hypertension) Comment: - SBP noted 150-160's. Not currently on medication. awaiting MRI results; of no CVA will start agent today, if MRI shows CVA will allow for permission HTN unless > SBP 170 (5) Tobacco abuse Comment: - nicotine replacement - smoking cessation (6) DVT prophylaxis Comment: HSQ - pt is refusing will add SCDs (7) DNR (do not resuscitate) Comment: DENISE on chart Status and Disposition: Inpatient with falls and weakness, awaiting MRI today.
[2016-04-09] MEDS ORDERED: Aspirin Low Dose CHEW TAB* 81 MG PO ONE (09:45)
--- NOTE | 2016-04-09 13:39 | ECHO ---
Patient: JOSSUE CHRIS [facility] Rec#: [id number] : 1945 Date: 04/09/2016 Age: 70y Height: 132 cm / 52.0 in Weight: 56 kg / 123.4 lbs Sex: F BSA: 1.37 Room#: 444 Admit Date#: 04/08/2016 Type: Inpatient Referring: Lluvia Simeon NP Reading: Michele Kumar DO Memory Care Director: Tarik Cheung RDCS CC: Linwood Hicsk MD Transthoracic Echocardiogram Indication: CVA BP: 151/78 HR: 76 Rhythm: NSR Findings History: DM, CAD, PCI, smoker Technical Comments: The study quality is fair. The study is technically limited due to patient body habitus. Left Ventricle: The left ventricular chamber size is normal. There is no left ventricular hypertrophy. except for mild basal septal knuckle Global left ventricular wall motion and contractility are within normal limits. There is normal left ventricular systolic function. The estimated ejection fraction is greater than 65%. The assessment of diastolic function is non-diagnostic. Left Atrium: The left atrial chamber size is normal. Right Ventricle: The right ventricular chamber size and systolic function are within normal limits. Right Atrium: The right atrial cavity size is normal. Interatrial septum appears intact without evidence of shunting. The bubble study is negative. Aortic Valve: The aortic valve is trileaflet. There is a trace of aortic regurgitation. There is no evidence of aortic stenosis. Mitral Valve: Moderate mitral annular calcification present. There is no evidence of mitral regurgitation. There is no evidence of mitral stenosis., mean gradient across valve is 1.81 mmHg Tricuspid Valve: There is trace tricuspid regurgitation. Unable to estimate the right ventricular systolic pressure. Pulmonic Valve: The pulmonic valve structure is not well visualized. There is no evidence of pulmonic regurgitation. There is no pulmonic stenosis. Pericardium: There is no significant pericardial effusion. Aorta: There is no dilatation of the ascending aorta. The aortic arch is not well visualized. There is no dilation of the aortic root. Pulmonary Artery: The main pulmonary artery is not well visualized. Venous: The inferior vena cava is dilated. There is a greater than 50% respiratory change in the inferior vena cava dimension. Contrast: Normal saline was used as contrast for the bubble study. IMAGE 64 AND 65 Conclusions The left ventricular chamber size is normal. There is no left ventricular hypertrophy except for mild basal septal knuckle There is normal left ventricular systolic function with an estimated LVEF of 65-70% The left atrial chamber size is normal. The right ventricular chamber size and systolic function are within normal limits. Moderate to severe posterior predominant mitral annular calcification present. No functionally significant valvular abnormalities noted. The agitated saline "bubble study" is negative. Measurements Name Value Normal Range RVIDd (AP) 2D 2.2 cm (0.9 - 2.6) RVDdMajor (2D) 3.4 cm (2.2 - 4.4) RAd ISD 4CH 3.7 cm (3.4 - 4.9) RA (A4C)W 2.4 cm (2.9 - 4.6) IVSd (2D) 0.9 cm (0.6 - 1) LVPWd (2D) 0.9 cm (0.6 - 1) LVIDd (2D) 4.4 cm (3.6 - 5.4) LVIDs (2D) 2.3 cm - Aortic Annulus 1.7 cm (1.4 - 2.6) Ao root diameter (2D) 3.3 cm (2.1 - 3.5) Ascending Ao 2.6 cm (2.1 - 3.4) LA dimension (AP) 2D 3.7 cm (2.3 - 3.8) LAd ISD 4CH 3 cm (2.9 - 5.3) LA ISD 4CH W 2.4 cm (2.5 - 4.5) Name Value Normal Range LA ESV SP 4CH (A/L) 25 ml - LA ESV SP 2CH (A/L) 38 ml - LA ESV BP (A/L) 35 ml - LA ESV BP (A/L) index 25.01 ml/m2 - LA ESV SP 4CH (MOD) 24 ml - LA ESV SP 2CH (MOD) 37 ml - Name Value Normal Range MV E-wave Vmax 0.72 m/sec - MV deceleration time 243 msec - MV A-wave Vmax 1.3 m/sec - MV E:A ratio 0.55 ratio - LV lateral e' Vmax 0.6 m/sec - LV E:e' lateral ratio 12 ratio - Name Value Normal Range AV VTI 21.46 cm - LVOT diameter 1.8 cm - LVOT Vmax 0.9 m/sec - LVOT VTI 20.91 cm - LVOT peak gradient 3.91 mmHg - LVOT mean gradient 2.52 mmHg - SV LVOT 53.11 ml - Name Value Normal Range MV Vmax 1.24 m/sec - MV VTI 26.36 cm - MVA (continuity VTI) 2.01 cm2 - Name Value Normal Range IVC diameter 2.2 cm - Name Value Normal Range PV Vmax 0.6 m/sec - PV peak gradient 1.83 mmHg -
[2016-04-09] MEDS ORDERED: Gadoteridol* (CONTRAST) 279.3 MG/ML 10 ML IV ONE (15:45)
--- NOTE | 2016-04-09 16:46 | RAD ---
Indication: Lower extremity weakness. Falls, balance issues. Comparison: April 08, 2016 CT of the cervical spine. Technique: [place] 1.5 Marilee [id number] with GEM suite. Pre and postcontrast MRI cervical spine. 12 mL ProHance injected IV. Report: The cervical spinal cord is normal in patterns of signal intensity. No conspicuous spinal cord lesions or syringohydromyelia. Normal bone marrow signal throughout. Negative for fracture or spondylolysis at any level. Normal vertebral alignment without spondylolisthesis or subluxation at any level. C2-C3: Unremarkable for age. C3-C4: Unremarkable for age. C4-C5: Moderate disc space narrowing and mild dorsal disc osteophyte complex. Resulting only partial effacement of the anterior CSF space without significant acquired central canal stenosis. Uncinate process spurring and facet joint osteoarthritis results in moderate LEFT foraminal stenosis. C5-C6: Severe disc space narrowing. Minimal dorsal disc osteophyte complex results in only partial effacement of the ventral CSF space without significant resulting acquired central canal stenosis. Uncinate process spurring and facet joint osteoarthritis results in moderate bilateral foraminal stenosis. C6-C7: Unremarkable for age. C7-T1: Unremarkable for age. IMPRESSION: 1. No evidence for demyelinating lesions of the cervical spinal cord or other abnormality of the cervical spinal cord. 2. 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
[2016-04-09] MEDS ORDERED: Atorvastatin* 80 MG TAB PO SCH (17:00)
--- NOTE | 2016-04-09 17:00 | RAD ---
Indication: Lower extremity weakness, falls, balance issues 2 months duration. Comparison: January 11, 2016 CT. January 07, 2013 MRI. Technique: [employer] 1.5 Marilee [id number] with GEM suite. MRI brain without and with contrast. 12 mL ProHance administered IV. Report: Restricted diffusion at the posterior limb of the RIGHT internal capsule with associated decreased signal on ADC map consistent with acute or subacute ischemia. Artifactual T2 shine through hyperintensity noted at the posterior limb of the LEFT internal capsule secondary to a small probable chronic lacunar infarct. No additional foci of concern on the diffusion weighted series. Extensive bilateral periventricular and subcortical white matter T2 hyperintensities with progression compared with the 2012 exam most consistent with progression of chronic small vessel ischemic disease. Unremarkable cerebral sulci, ventricles, and basal cisterns. Multiple small T2 hyperintense foci at the basal ganglia most consistent with a eta crible appearance secondary to diffusely widened perivascular spaces in the basal ganglia. No abnormal intra or extra-axial enhancement evident. Unremarkable major intracranial flow-voids. Unremarkable orbital contents. Grossly clear paranasal sinuses and mastoid air spaces. No suspicious calvarial or skull base lesion. Unremarkable scalp. IMPRESSION: 1. Restricted diffusion at the posterior limb of the RIGHT internal capsule with associated decreased signal on ADC map consistent with acute or subacute ischemia. Negative for associated mass effect. 2. Stigmata of chronic small vessel ischemic disease with progression.
[2016-04-09] MEDS: Atorvastatin* 40 MG TAB PO SCH (17:36)
[2016-04-10 06:29] LABS: Hematocrit 41 % (35-47); Hemoglobin 13.8 g/dl (12.0-16.0); Mean Corpuscular HGB Conc 34 g/dl (31-36); Mean Corpuscular Hemoglobin 30 pg (27-31); Mean Corpuscular Volume 88 fL (80-97); Mean Platelet Volume 8 um3 (7.4-10.4); Red Blood Count 4.63 10^6/ul (4.0-5.4); Red Cell Distribution Width 14 % (10.5-15); White Blood Count 6.8 10^3/ul (3.5-10.8)
[2016-04-10] MEDS: Heparin VIAL(*) 5000 UNITS/ML VIAL (FIVE THOUSAND) SUBCUT SCH ×3 (06:38→21:01)
[2016-04-10 06:44] LABS: BUN/Creatinine Ratio 16.7 (8-20); Calcium 9.2 mg/dL (8.6-10.3); EGFR African American 93.9 (>60); Potassium 3.8 mmol/L (3.5-5.0)
[2016-04-10] MEDS: Insulin LISPRO* 1 UNITS UNIT SUBCUT SCH ×3 (08:17→17:27)
[2016-04-10] MEDS ORDERED: Aspirin Low Dose CHEW TAB* 81 MG PO SCH (09:00)
--- NOTE | 2016-04-10 10:05 | PN ---
Subjective Date of Service: 04/10/16 Interval History: . Patient continues to refuse subacute rehab stating "I am just going to leave AMA ". When discussing with the patient that she needs subacute rehab due to not transferring well independently and unsteady gait she states "I am going home and I will crawl if I need to". She also states "I will learn how to use the walker at home you are not keeping me here". Pt states "I can take care of myself and have neighbors". Again, concern was expressed and patient was very upset unwilling to discuss with me further and asked me to leave the room "firing" me. The patient was very upset and got her self out of her chair having to hold onto the bed to hold herself up, falling onto the bed. The patient was yelling at me to "stop touching and helping me". I called other staff in to be a stand by assist as the pt is unstable and unsafe to be independent I spoke with both daughters Shannon and Anna who asked for a psych consult and relayed that it is common the patient refuses her prescribed medications and leaves against medical advice. They have concern about her going home unsafely if she needs rehab. Daughters also report pt is noncompliant with home medications refusing to take blood pressure medications. Objective Active Medications: Aspirin (Aspirin Low Dose Tab*) 81 mg PO DAILY [facility] Last Admin: 04/10/16 08:18 Dose: 81 mg Atorvastatin Calcium (Lipitor*) 40 mg PO 1700 [facility] Last Admin: 04/09/16 17:36 Dose: Not Given Dextrose (D50w Syringe 50 Ml*) 12.5 gm IV PUSH .FOR FS < 60 - SS PRN PRN Reason: FS < 60 Heparin Sodium (Porcine) (Heparin Vial(*)) 5,000 units SUBCUT Q8HR [facility] Last Admin: 04/10/16 06:38 Dose: Not Given Insulin Human Lispro (Humalog*) 0 units SUBCUT AC [facility] PRN Reason: Protocol Last Admin: 04/10/16 08:17 Dose: 1 unit Nicotine (Nicotine Inhaler*) 10 mg INH Q2H PRN PRN Reason: CRAVING Nicotine Polacrilex (Nicotine Gum*) 2 mg PO Q2H PRN PRN Reason: CRAVING Nicotine Polacrilex (Nicotine Lozenge*) 4 mg MT Q2H PRN PRN Reason: CRAVINGS Vital Signs 04/09/16 04/09/16 04/09/16 12:00 15:14 19:07 Temperature 99.1 F 98.8 F Pulse Rate 81 83 Respiratory 16 16 Rate Blood Pressure 159/74 (mmHg) O2 Sat by Pulse 93 92 Oximetry 04/09/16 04/09/16 04/10/16 19:29 23:41 03:13 Temperature 98.4 F 97.7 F 98.4 F Pulse Rate 73 73 85 Respiratory 16 18 17 Rate Blood Pressure 175/77 160/83 163/72 (mmHg) O2 Sat by Pulse 93 93 92 Oximetry 04/10/16 07:19 Temperature 98.2 F Pulse Rate 72 Respiratory 16 Rate Blood Pressure 144/78 (mmHg) O2 Sat by Pulse 96 Oximetry Oxygen Devices in Use Now: None Appearance: 70 yo female A+O x3 agitated Eyes: No Scleral Icterus, PERRLA Ears/Nose/Mouth/Throat: NL Teeth, Lips, Gums, Mucous Membranes Moist Neck: NL Appearance and Movements; NL JVP Respiratory: Symmetrical Chest Expansion and Respiratory Effort, Clear to Auscultation Cardiovascular: NL Sounds; No Murmurs; No JVD, RRR, No Edema Abdominal: NL Sounds; No Tenderness; No Distention Extremities: No Edema, No Clubbing, Cyanosis Skin: No Rash or Ulcers, No Nodules or Sclerosis Neurological: Alert and Oriented x 3, NL Sensation, - - strength is 4/5 LLE; RLE 5/5 Lines/Tubes/Other Access: Clean, Dry and Intact Peripheral IV Nutrition: Taking PO's Result Diagrams: 04/10/16 06:01 04/10/16 06:01 Additional Lab and Data: Lab Results 04/08/16 04/08/16 04/08/16 Range/Units 11:45 11:45 11:45 WBC 8.5 (3.5-10.8) 10^3/ul RBC 4.67 (4.0-5.4) 10^6/ul Hgb 13.8 (12.0-16.0) g/dl Hct 42 (35-47) % MCV 89 (80-97) fL MCH 30 (27-31) pg MCHC 33 (31-36) g/dl RDW 15 (10.5-15) % Plt Count 207 (150-450) 10^3/ul MPV 9 (7.4-10.4) um3 Neut % (Auto) 72.2 (38-83) % Lymph % (Auto) 17.9 L (25-47) % Bibb % (Auto) 7.8 (1-9) % Eos % (Auto) 1.3 (0-6) % Baso % (Auto) 0.8 (0-2) % Absolute Neuts (auto) 6.1 (1.5-7.7) 10^3/ul Absolute Lymphs (auto) 1.5 (1.0-4.8) 10^3/ul Absolute Monos (auto) 0.7 (0-0.8) 10^3/ul Absolute Eos (auto) 0.1 (0-0.6) 10^3/ul Absolute Basos (auto) 0.1 (0-0.2) 10^3/ul Absolute Nucleated RBC 0 10^3/ul Nucleated RBC % 0 INR (Anticoag Therapy) 0.94 (0.89-1.11) APTT 28.8 (26.0-36.3) seconds Sodium 136 (133-145) mmol/L Potassium 4.0 (3.5-5.0) mmol/L Chloride 101 (101-111) mmol/L Carbon Dioxide 28 (22-32) mmol/L Anion Gap 7 (2-11) mmol/L BUN 11 (6-24) mg/dL Creatinine 0.81 (0.51-0.95) mg/dL Est GFR ( Amer) 89.9 (>60) Est GFR (Non-Af Amer) 69.9 (>60) BUN/Creatinine Ratio 13.6 (8-20) Glucose 183 H (70-100) mg/dL Lactic Acid (0.5-2.0) mmol/L Calcium 9.5 (8.6-10.3) mg/dL Total Bilirubin 0.50 (0.2-1.0) mg/dL AST 15 (13-39) U/L ALT 17 (7-52) U/L Alkaline Phosphatase 62 (34-104) U/L Total Creatine Kinase 120 (10-223) U/L CK-MB (CK-2) 5.0 (0.6-6.3) ng/mL Myoglobin 95.0 H (14.3-65.8) ng/mL Troponin I 0.01 (<0.04) ng/mL B-Natriuretic Peptide ( - 100) pg/mL Total Protein 6.7 (6.4-8.9) g/dL Albumin 4.2 (3.2-5.2) g/dL Globulin 2.5 (2-4) g/dL Albumin/Globulin Ratio 1.7 (1-3) Triglycerides 206 mg/dL Cholesterol 259 mg/dL LDL Cholesterol 181 mg/dL HDL Cholesterol 37.0 mg/dL 04/08/16 04/08/16 Range/Units 11:45 11:45 WBC (3.5-10.8) 10^3/ul RBC (4.0-5.4) 10^6/ul Hgb (12.0-16.0) g/dl Hct (35-47) % MCV (80-97) fL MCH (27-31) pg MCHC (31-36) g/dl RDW (10.5-15) % Plt Count (150-450) 10^3/ul MPV (7.4-10.4) um3 Neut % (Auto) (38-83) % Lymph % (Auto) (25-47) % Bibb % (Auto) (1-9) % Eos % (Auto) (0-6) % Baso % (Auto) (0-2) % Absolute Neuts (auto) (1.5-7.7) 10^3/ul Absolute Lymphs (auto) (1.0-4.8) 10^3/ul Absolute Monos (auto) (0-0.8) 10^3/ul Absolute Eos (auto) (0-0.6) 10^3/ul Absolute Basos (auto) (0-0.2) 10^3/ul Absolute Nucleated RBC 10^3/ul Nucleated RBC % INR (Anticoag Therapy) (0.89-1.11) APTT (26.0-36.3) seconds Sodium (133-145) mmol/L Potassium (3.5-5.0) mmol/L Chloride (101-111) mmol/L Carbon Dioxide (22-32) mmol/L Anion Gap (2-11) mmol/L BUN (6-24) mg/dL Creatinine (0.51-0.95) mg/dL Est GFR ( Amer) (>60) Est GFR (Non-Af Amer) (>60) BUN/Creatinine Ratio (8-20) Glucose (70-100) mg/dL Lactic Acid 1.5 (0.5-2.0) mmol/L Calcium (8.6-10.3) mg/dL Total Bilirubin (0.2-1.0) mg/dL AST (13-39) U/L ALT (7-52) U/L Alkaline Phosphatase (34-104) U/L Total Creatine Kinase (10-223) U/L CK-MB (CK-2) (0.6-6.3) ng/mL Myoglobin (14.3-65.8) ng/mL Troponin I (<0.04) ng/mL B-Natriuretic Peptide 69 ( - 100) pg/mL Total Protein (6.4-8.9) g/dL Albumin (3.2-5.2) g/dL Globulin (2-4) g/dL Albumin/Globulin Ratio (1-3) Triglycerides mg/dL Cholesterol mg/dL LDL Cholesterol mg/dL HDL Cholesterol mg/dL Assess/Plan/Problems-Billing Assessment: Ms. Georges is a 70 yo female with a PMH of DM2, CAD s/p stent, long- term tobacco abuse who presents with falls and 2 months of lower extremity weakness in lower extremities and left-sided weakness. - Patient Problems (1) weakness/falls Comment: - CVA noted on MRI. Plan for carotid dopplers today - Neuro following - Cervical spine CT negative. - continue asa, statin, plavix - pt refusing medications - PT/OT (2) CAD (coronary artery disease) Comment: - asymptomatic - continue ASA (3) Diabetes 1.5, managed as type 2 Comment: - Continue FSBG AC with lispro SS. Pt was refusing insulin now allowing for coverage. Consider restarting metformin tomorrow. (4) HTN (hypertension) Comment: - uncontrolled blood pressure SBP 150-170s. Pt refusing medication. (5) Tobacco abuse Comment: - nicotine replacement - smoking cessation (6) DVT prophylaxis Comment: HSQ - pt is refusing will add SCDs (7) DNR (do not resuscitate) Comment: MOLST on chart Status and Disposition: Inpatient with CVA. Patient was evaluated by psych who stated patient does not have capacity to sign out AMA
[2016-04-10] MEDS: Clopidogrel TAB* 75 MG PO SCH (12:34)
--- NOTE | 2016-04-10 12:49 | RAD ---
INDICATION: Cerebrovascular accident. COMPARISON: There are no prior studies available for comparison. TECHNIQUE: Multiple grayscale, color and Doppler tracings of the common, internal and external carotid and vertebral arteries were obtained. Stenosis estimations reflect velocity criteria that it been correlated to angiographic stenosis calculations based on the distal internal carotid diameter. RIGHT CAROTID: There is mild to moderate calcific plaque within the right carotid bulb and proximal internal carotid artery. The peak systolic velocity in the proximal right internal carotid artery is 78 cm/s and the maximum end-diastolic velocity is 25 cm/s. The peak systolic velocity in the distal right common carotid artery is 45 cm/s and the maximum end-diastolic velocity is 9 cm/s. The internal to common carotid artery ratio is 1.7. This would be consistent with a less than 50% stenosis. LEFT CAROTID: There is mild to moderate calcific plaque within the left carotid bulb and proximal internal carotid artery. The peak systolic velocity in the proximal left internal carotid artery is 62 cm/s and the maximum end-diastolic velocity is 20 cm/s. The peak systolic velocity in the distal left common carotid artery is 76 cm/s and the maximum end-diastolic velocity is 24 cm/s. The internal to common carotid artery ratio is 0.8. This would be consistent with a less than 50% stenosis. VERTEBRALS: There is antegrade flow in both vertebral arteries. IMPRESSION: THERE IS MILD TO MODERATE PLAQUE PRESENT WITHIN THE CAROTID BULBS AND PROXIMAL INTERNAL CAROTID ARTERIES. NO HEMODYNAMICALLY SIGNIFICANT STENOSIS IS SEEN. CPT II Codes: 3100F
[2016-04-10] MEDS ORDERED: amLODIPine TAB* 5 MG PO ONE (16:50)
[2016-04-10] MEDS ORDERED: Atorvastatin* 40 MG TAB PO SCH (17:00)
[2016-04-10] MEDS: Atorvastatin* 40 MG TAB PO SCH (17:24)
[2016-04-10] MEDS ORDERED: Acetaminophen TAB* 325 MG PO PRN (17:54)
[2016-04-10] MEDS ORDERED: LORazepam TAB(*) 0.5 MG PO PRN (17:55)
--- NOTE | 2016-04-10 18:43 | CONS ---
PSYCHIATRIC CONSULTATION: DATE OF CONSULT/DICTATION: 04/10/16 IDENTIFYING DATA: Amelie Georges is a 70-year-old female with a history of diabetes and a pattern, according to her family, of refusing medical care and leaving facilities against medical advice. Psychiatric consultation was requested with a focused question as to the patient's mental capacity to sign out of the hospital against medical advice. I discussed the case with nurse practitioner, Lucila Dickens, and understand that the treatment team has determined that the patient is unsafe at home, cannot meet her own needs in that setting nor can appropriate services be provided there on a timely basis to allow her to leave the hospital against medical advice safely. I introduced myself to Ms. Georges and explained the reason for my visit, specifically discussing the context of a capacity consultation. She initially dismissed me and was minimally cooperative; however, she did allow me to ask the relevant questions and gather the relevant information. For the purposes of signing out of the hospital against medical advice at this time: 1. Ms. Georges makes a clear choice. She insists that she is leaving "right now. " 2. Ms. Georges failed to manage critical facts. While she is able to recite some of her medical diagnoses, was able to say that she is in the hospital because she "couldn't walk," and, with prompting, is able to acknowledge that she had "a small stroke," she avidly denies being at any risks at home and insists that her "friends" can meet all of her basic clinical needs there. Additionally, she insists that she would not face any risks at home, even if unsupervised, that she is not facing right now in the supervised setting of the hospital. 3. She fails to demonstrate that she appreciates the possibility of an adverse outcome if she were to leave the hospital against medical advice; and she appears to fail to connect divergent potential outcomes with the distinct emotional responses in conversation that an average person would. 4. Ms. Georges has failed to manage the information that she has been provided in a rational manner as we would expect from an average individual. CAPACITY FINDING: Amelie Georges lacks mental capacity to leave the hospital against medical advice at this time. Based on the vigorous nature of her protests, it is important to make every attempt to engage her and analyze whether appropriate services can be placed in home setting to facilitate her going there. Thank you for the opportunity to participate in Ms. Georges's management. Please contact me or my coverage group if there are any additional questions or concerns. [id number]/[facility] #: [id number] BAILEY
[2016-04-10] MEDS ORDERED: LORazepam INJ* 2 MG/ML 1 ML VIAL IV PUSH PRN (19:31)
[2016-04-10] MEDS ORDERED: Mouth Piece, Nicotine* 1 EACH CARTRIDGE ONE (19:46)
[2016-04-11] MEDS: Heparin VIAL(*) 5000 UNITS/ML VIAL (FIVE THOUSAND) SUBCUT SCH ×4 (05:13→22:13)
[2016-04-11] MEDS ORDERED: Aspirin EC Low Dose* 81 MG TAB.EC PO SCH (09:00)
[2016-04-11] MEDS: Insulin LISPRO* 1 UNITS UNIT SUBCUT SCH ×3 (09:51→19:30)
[2016-04-11] MEDS: Clopidogrel TAB* 75 MG PO SCH (09:55)
[2016-04-11] MEDS: amLODIPine TAB* 5 MG PO SCH (09:55)
[2016-04-11] MEDS ORDERED: Insulin LISPRO* 1 UNITS UNIT SUBCUT ONE (12:47)
--- NOTE | 2016-04-11 18:48 | PN ---
Subjective Date of Service: 04/11/16 Interval History: Patient seen this afternoon. She immediately stated she "is leaving today". Asking me to get the AMA paperwork so she could sign it and go home. I attempted to explain to her that based on the Psychiatric evaluation yesterday she lacks decision-making capacity however she continually talked over me during my explanation stating that she felt that was incorrect and that she knows she can take care of herself. Says being in the hospital is causing her more stress. Family History: Unchanged from Admission Social History: Unchanged from Admission Past Medical History: Unchanged from Admission Objective Active Medications: Acetaminophen (Tylenol Tab*) 650 mg PO Q6H PRN PRN Reason: FEVER/PAIN Amlodipine Besylate (Norvasc Tab*) 5 mg PO DAILY [facility] Last Admin: 04/11/16 09:55 Dose: Not Given Atorvastatin Calcium (Lipitor*) 40 mg PO 1700 [facility] Last Admin: 04/10/16 17:24 Dose: Not Given Dextrose (D50w Syringe 50 Ml*) 12.5 gm IV PUSH .FOR FS < 60 - SS PRN PRN Reason: FS < 60 Dipyridamole/Aspirin (Aggrenox 25/200*) 1 cap.er PO DAILY WITH MEAL [facility] Heparin Sodium (Porcine) (Heparin Vial(*)) 5,000 units SUBCUT Q8HR [facility] Last Admin: 04/11/16 16:04 Dose: Not Given Insulin Human Lispro (Humalog*) 0 units SUBCUT AC [facility] PRN Reason: Protocol Last Admin: 04/11/16 12:49 Dose: 1 unit Lorazepam (Ativan Tab(*)) 0.5 mg PO Q8H PRN PRN Reason: ANXIETY Lorazepam (Ativan Inj*) 1 mg IV PUSH Q6H PRN PRN Reason: ANXIETY Nicotine (Nicotine Inhaler*) 10 mg INH Q2H PRN PRN Reason: CRAVING Last Admin: 04/10/16 19:47 Dose: 10 mg Nicotine Polacrilex (Nicotine Gum*) 2 mg PO Q2H PRN PRN Reason: CRAVING Nicotine Polacrilex (Nicotine Lozenge*) 4 mg MT Q2H PRN PRN Reason: CRAVINGS Vital Signs 04/10/16 04/11/16 04/11/16 19:11 03:45 08:00 Temperature 98.0 F Pulse Rate 80 Respiratory 18 20 16 Rate Blood Pressure 162/82 (mmHg) O2 Sat by Pulse 94 Oximetry 04/11/16 04/11/16 04/11/16 08:06 11:32 15:52 Temperature 98.4 F 97.6 F Pulse Rate 88 85 89 Respiratory 16 16 18 Rate Blood Pressure 152/70 142/86 175/86 (mmHg) O2 Sat by Pulse 91 95 95 Oximetry Allowed limited physical exam Oxygen Devices in Use Now: None Appearance: Middle-aged, F, sitting on bed in NAD Eyes: No Scleral Icterus Ears/Nose/Mouth/Throat: Mucous Membranes Moist Neck: NL Appearance and Movements; NL JVP Respiratory: Symmetrical Chest Expansion and Respiratory Effort, Clear to Auscultation Cardiovascular: NL Sounds; No Murmurs; No JVD, RRR Abdominal: NL Sounds; No Tenderness; No Distention Lymphatic: No Cervical Adenopathy Extremities: No Edema Skin: No Rash or Ulcers Neurological: - - Alert, oriented, linoleum floor layer appear intact, mild LLE weakness Result Diagrams: 04/10/16 06:01 04/10/16 06:01 Additional Lab and Data: Assess/Plan/Problems-Billing Assessment: Ms. Georges is a 70 yo female with a PMH of DM2, CAD s/p stent, long- term tobacco abuse who presents with falls and 2 months of lower extremity weakness in lower extremities and left-sided weakness. - Patient Problems (1) CVA (cerebral vascular accident) Current Visit: Yes Comment: Appreciate Neurology assistance. Patient refusing most medications (ASA, Plavix, Statin). Changed to Aggranox as per Neurology to try to help with compliance. (2) CAD (coronary artery disease) Current Visit: Yes Comment: - asymptomatic - continue aggranox (3) HTN (hypertension) Current Visit: Yes Comment: - uncontrolled blood pressure SBP 150-170s. Pt refusing medication. (4) Diabetes 1.5, managed as type 2 Current Visit: Yes Comment: Restart home metformin (5) DVT prophylaxis Current Visit: Yes Comment: HSQ - pt is refusing, added SCDs (6) weakness/falls Current Visit: Yes Comment: Patient will likely need rehab. As per Psych lacks decision making capacity. She is requesting additional evaluation by Psychiatry which we can consider tomorrow. Spoke with patient's sister who agrees to be present at patient's home 24 hrs/ day, she will attempt to come in to work with PT in the AM. Status and Disposition: Inpatient with CVA. Patient was evaluated by psych who stated patient does not have capacity to sign out AMA
[2016-04-11] MEDS: Dipyridamole/Aspirin 25/200* CAP.ER PO SCH (19:30)
[2016-04-11] MEDS: Atorvastatin* 40 MG TAB PO SCH (19:30)
[2016-04-11] MEDS ORDERED: metFORMIN* 500 MG TAB PO SCH (21:00)
[2016-04-12] MEDS: Heparin VIAL(*) 5000 UNITS/ML VIAL (FIVE THOUSAND) SUBCUT SCH (05:32)
[2016-04-12 07:52] VITALS: BP 153/77
[2016-04-12] MEDS ORDERED: metFORMIN* 500 MG TAB PO SCH (08:00)
[2016-04-12] MEDS: Dipyridamole/Aspirin 25/200* CAP.ER PO SCH (08:43)
[2016-04-12] MEDS: amLODIPine TAB* 5 MG PO SCH (08:44)
[2016-04-12] MEDS: Insulin LISPRO* 1 UNITS UNIT SUBCUT SCH (10:19)
--- NOTE | 2016-04-12 10:36 | DCNOTE ---
Patient seen this morning. Did better with PT. Sister is present and reports she will stay with patient 15/10. Patient feels she continues to improve. On exam, no facial droop, ambulating easier with PT, strength in LLE improving. Discussed importance of medication compliance with patient and she agreed to take her current medication regimen at home. Also stressed the importance of smoking cessation. Discharge home today. Will need to f/u with Dr. Hicks.
--- NOTE | 2016-04-12 20:04 | DS ---
DISCHARGE SUMMARY: DATE OF ADMISSION: 04/08/16 DATE OF DISCHARGE: 04/12/16 PRIMARY CARE PHYSICIAN: Dr. Hicks. PRINCIPAL DISCHARGE DIAGNOSIS: Stroke. SECONDARY DIAGNOSES: 1. Hypertension. 2. Diabetes. 3. Tobacco abuse. CONSULT DURING HOSPITALIZATION: Melina Lopes MD, Neurology. STUDIES DONE DURING HOSPITALIZATION: Chest x-ray, impression: No active disease. CT cervical spine, impression: [id number] mid cervical osteoarthritic findings. Transthoracic echocardiogram: Left ventricular chamber size is normal. Left ventricular hypertrophy except for a mild basal septal knuckle, has normal LV systolic function. The EF is 65% to 70%. Left atrial chamber size is normal. The right ventricular chamber size and systolic function are within normal limits, moderate to severe posterior predominant mitral annular calcification present. No functionally significant valvular abnormalities noted. The agitated saline bubble study is negative. MRI of the brain, impression: Restricted diffusion at the posterior limb of the right internal capsule with associated decrease on ADC map consistent with acute or subacute ischemia, negative for associated mass effect, stigmata of chronic small vessel ischemic disease with progression. MRI of the cervical spine: No evidence of demyelinating lesions of the cervical spinal cord or other abnormalities of the cervical spinal cord, degenerative spondylosis and posterior element osteoarthritis in C4-C5 and C5- C6 with resulting foraminal stenosis as described. Carotid Doppler, impression: There is mild to moderate plaque present within the carotid bulbs and proximal internal carotid arteries. No hemodynamically significant stenosis is seen. HISTORY OF PRESENT ILLNESS AND HOSPITAL SUMMARY: Please see the full history and physical by Lluvia Simeon NP, for full details. Briefly, Ms. Georges is a 70- year-old female with past medical history of CAD, type 2 diabetes, tobacco abuse and hypertension, who presented to the hospital with a fall and left lower extremity weakness on exam. Neurology was consulted and recommended MRI of the brain, which did show evidence of a stroke. The patient was started on appropriate medications; however, she refused to take; most of them while in the hospital. She had significant physical limitations initially. Physical Therapy is recommending short- term rehab, which the patient refused. This prompted a Psychiatry consultation to see if the patient had capacity to refuse this. Dr. Sargent evaluated the patient and he felt that she lacked the mental capacity to leave the hospital against medical advice. Over the following days , she had improvement in her physical status. Her sister volunteered to stay with the patient 24 hours a day until she was cleared by Physial Therapy that it was safe for her to be alone. I also discussed each individual medication, discharge medication with the patient, which she agreed to take on discharge. I also counseled the patient on tobacco cessation. She will be discharged home and will need to follow up with her primary care physician. TIME SPENT: Total time spent on this discharge, 45 minutes. This is a summary of the hospitalization. Please see the full medical record for further details. CC: Dr. Hicks* [id number]/CPS #: [id number] BAILEY
== END 2016-04-12 11:22 | disposition home or self-care (01) | DRG 65 ==
LOC: ED 07:36 → MEDTELE 12:36
PROVIDERS: ADMIT Internal Medicine; ATTEND Hospitalist
DX: I63.9 Cerebral infarction, unspecified (principal); G81.94 Hemiplegia, unspecified affecting left nondominant side; E11.65 Type 2 diabetes mellitus with hyperglycemia; M48.02 Spinal stenosis, cervical region; K57.32 Diverticulitis of large intestine without perforation or abscess without bleeding; I10 Essential (primary) hypertension; M47.892 Other spondylosis, cervical region; I25.10 Atherosclerotic heart disease of native coronary artery without angina pectoris; Z95.5 Presence of coronary angioplasty implant and graft; Z66 Do not resuscitate; Z88.8 Allergy status to other drugs, medicaments and biological substances; Z88.7 Allergy status to serum and vaccine; Z88.2 Allergy status to sulfonamides; Z82.49 Family history of ischemic heart disease and other diseases of the circulatory system; Z83.3 Family history of diabetes mellitus; F17.210 Nicotine dependence, cigarettes, uncomplicated; Z91.81 History of falling; R07.81 Pleurodynia; M48.06 Spinal stenosis, lumbar region; R29.703 NIHSS score 3; Z88.1 Allergy status to other antibiotic agents; K21.9 Gastro-esophageal reflux disease without esophagitis; M54.5 Low back pain
CPT/HCPCS: 36415; 70553; 71010; 72125; 72131; 72156; 80048; 80053; 80061; 81003; 82272; 82550; 82553; 83036; 83605; 83874; 83880; 84484; 85025; 85610; 85730; 86140; 93005; 93306; 93880; 99406; A9270-GY; A9579; J1644

== ENCOUNTER 2016-10-19 18:36 | Emergency (ER) | payer MEDICARE, MEDICAID ==
[2016-10-19 18:50] VITALS: BP 127/66
--- NOTE | 2016-10-19 19:37 | UC ---
Throat Pain/Nasal Derek HPI - HPI Summary HPI Summary: THREE DAYS OF RIGHT SIDED THROAT PAIN; ALSO PAIN IN RIGHT LOWER GUMS, UNDER DENTURES. KEMAR IS A SMOKER, DIABETIC, NO FEVER. NO CONGESTION. NO RASHES. - History of Current Complaint Chief Complaint: UCRespiratory Stated Complaint: SORE THROAT Time Seen by Provider: 10/19/16 18:50 Hx Obtained From: Patient Onset/Duration: Gradual Onset, Lasting Days, Still Present Severity: Moderate Pain Intensity: 8 Pain Scale Used: 0-10 Numeric Cough: None Associated Signs & Symptoms: Negative: Hoarseness, Sinus Discomfort, Nasal Discharge, Fever - Epiglottits Risk Factors Epiglottis Risk Factors: Negative - Allergies/Home Medications Allergies/Adverse Reactions: Allergies Allergy/AdvReac Type Severity Reaction Status Date / Time Tetanus Toxoid Allergy Severe Hives Verified 10/19/16 18:51 Ibuprofen Allergy Rash Verified 10/19/16 18:51 Lisinopril Allergy Swelling Verified 10/19/16 18:51 Of Face,Lips,& Throat Beta Adrenergic Blockers AdvReac Stomach Verified 10/19/16 18:51 Cramps Metronidazole [From Flagyl] AdvReac Diarrhea Verified 10/19/16 18:51 Sulfa Antibiotics AdvReac Vomiting Verified 10/19/16 18:51 STEROID AdvReac Severe ELEVATE Uncoded 10/19/16 18:51 BLOOD SUGAR Home Medications: Home Medications Aspirin TAB* [Aspirin 325 MG TAB*] 325 mg PO DAILY 10/19/16 [History Confirmed 10/19/16] PMH/Surg Hx/FS Hx/Imm Hx Previously Healthy: Yes - Surgical History Surgical History: Yes Surgery Procedure, Year, and Place: right wrist surgery, titanium bar in place. 3 Cardiac stents -XIENCE V - MRI CONDITIONAL 5 UP TO 3T : 06/11/08. OVARIAN CYST REMOVAL - Family History Known Family History: Positive: Cardiac Disease - Father, Diabetes - Mother, Children, Other - CANCER HISTORY, SON & FATHER Family History: FHx of [place] (father) - Social History Occupation: Retired Lives: With Family Alcohol Use: None Substance Use Type: None Smoking Status (MU): Heavy Every Day Tobacco Smoker Type: Cigarettes Amount Used/How Often: 1.5-2 ppd Cessation Counseling: Patient Advised to Stop - Immunization History Most Recent Influenza Vaccination: Fall 2015 Most Recent Tetanus Shot: long time ago- allergy to tenanus toxoid Most Recent Pneumonia Vaccination: 2016 Review of Systems Constitutional: Negative Skin: Negative Eyes: Negative ENT: Dental Pain, Sore Throat Respiratory: Negative Cardiovascular: Negative Gastrointestinal: Negative Genitourinary: Negative Motor: Negative Neurovascular: Negative Musculoskeletal: Negative Neurological: Negative Psychological: Negative All Other Systems Reviewed And Are Negative: Yes Physical Exam Triage Information Reviewed: Yes Appearance: Well-Appearing, No Pain Distress, Well-Nourished Vital Signs: Initial Vital Signs Temp 98.5 F 10/19/16 18:47 Pulse 78 10/19/16 18:47 Resp 18 10/19/16 18:47 BP 127/66 10/19/16 18:47 Pulse Ox 98 10/19/16 18:47 Vital Signs Reviewed: Yes Eye Exam: Normal ENT: Positive: Pharynx normal, TMs normal Dental: Positive: Percussion Tenderness @ - GINGIVA UNDER DENTURES RIGHT LOWER JAW Neck: Positive: Supple, Tenderness @ - RIGHT ANTERIOR CERVICAL LYMPHNODE Respiratory Exam: Normal Respiratory: Positive: Chest non-tender, Lungs clear, Normal breath sounds, No respiratory distress, No accessory muscle use Cardiovascular Exam: Normal Cardiovascular: Positive: RRR, No Murmur, Pulses Normal, Brisk Capillary Refill Abdominal Exam: Normal Musculoskeletal Exam: Normal Neurological Exam: Normal Psychological Exam: Normal Skin Exam: Normal Throat Pain/Nasal Course/Dx - Differential Dx/Diagnosis Differential Diagnosis/HQI/PQRI: Laryngitis, Jason's Angina, Pharyngitis, Tonsillitis, URI Provider Diagnoses: RIGHT ANTERIOR CERVICAL LYMPHADENOPATHY; RIGHT LOWER JAW ODONTOGENIC PAIN Discharge - Discharge Plan Condition: Stable Disposition: HOME Prescriptions: Amoxicillin/Clavulanate TAB* [Augmentin TAB 875*] 875 mg PO BID #20 tab Patient Education Materials: Lymphadenopathy (ED) Referrals: Linwood Hicks MD [Primary Care Provider] -
== END 2016-10-19 19:17 | disposition home or self-care (01) ==
LOC: UCCORT 18:36
DX: R59.0 Localized enlarged lymph nodes (principal); R68.84 Jaw pain; Z79.82 Long term (current) use of aspirin; Z95.5 Presence of coronary angioplasty implant and graft; F17.210 Nicotine dependence, cigarettes, uncomplicated; Z88.6 Allergy status to analgesic agent; Z88.7 Allergy status to serum and vaccine; Z88.8 Allergy status to other drugs, medicaments and biological substances; Z88.2 Allergy status to sulfonamides
CPT/HCPCS: 99212; G0463

== ENCOUNTER 2017-03-26 14:10 | Emergency (ER) | payer MEDICARE, MEDICAID ==
--- NOTE | 2017-03-26 15:06 | UC ---
Throat Pain/Nasal Derek HPI - HPI Summary HPI Summary: 71 year old female presents with complains of sinus pressure and pain. - History of Current Complaint Stated Complaint: SINUS PRESSURE,HEADACHE Time Seen by Provider: 03/26/17 15:05 Hx Obtained From: Patient Onset/Duration: Sudden Onset Severity: Moderate Pain Scale Used: 0-10 Numeric - 5 Cough: Nonproductive Associated Signs & Symptoms: Positive: Dysphagia, Wheezing - Allergies/Home Medications Allergies/Adverse Reactions: Allergies Allergy/AdvReac Type Severity Reaction Status Date / Time Tetanus Toxoid Allergy Severe Hives Verified 03/26/17 15:17 Ibuprofen Allergy Rash Verified 03/26/17 15:17 Lisinopril Allergy Swelling Verified 03/26/17 15:17 Of Face,Lips,& Throat Beta Adrenergic Blockers AdvReac Stomach Verified 03/26/17 15:17 Cramps Metronidazole [From Flagyl] AdvReac Diarrhea Verified 03/26/17 15:17 Sulfa Antibiotics AdvReac Vomiting Verified 03/26/17 15:17 STEROID AdvReac Severe ELEVATE Uncoded 03/26/17 15:17 BLOOD SUGAR Home Medications: Home Medications Diabetic Medication TID 03/26/17 [History] Fluid Pill DAILY 03/26/17 [History] PMH/Surg Hx/FS Hx/Imm Hx Previously Healthy: Yes - Surgical History Surgical History: Yes Surgery Procedure, Year, and Place: right wrist surgery, titanium bar in place. 3 Cardiac stents -[facility]ENCE V - MRI CONDITIONAL 5 UP TO 3T : 06/11/08. OVARIAN CYST REMOVAL - Family History Known Family History: Positive: Cardiac Disease - Father, Diabetes - Mother, Children, Other - CANCER HISTORY, SON & FATHER Family History: FHx of [place] (father) - Social History Alcohol Use: None Substance Use Type: None Smoking Status (MU): Heavy Every Day Tobacco Smoker Type: Cigarettes Amount Used/How Often: 1.5-2 ppd - Immunization History Most Recent Influenza Vaccination: Fall 2015 Most Recent Tetanus Shot: long time ago- allergy to tenanus toxoid Most Recent Pneumonia Vaccination: 2016 Review of Systems Constitutional: Negative Skin: Negative Eyes: Negative ENT: Negative, Sore Throat, Ear Ache, Nasal Discharge, Sinus Congestion, Sinus Pain/Tenderness Respiratory: Negative, Cough Cardiovascular: Negative Gastrointestinal: Negative Genitourinary: Negative Motor: Negative Neurovascular: Negative Musculoskeletal: Negative Neurological: Negative Psychological: Negative All Other Systems Reviewed And Are Negative: Yes Physical Exam Triage Information Reviewed: Yes Vital Signs Reviewed: Yes Eye Exam: Normal ENT: Positive: Pharyngeal erythema, Nasal congestion, Nasal drainage, Tonsillar swelling, Sinus tenderness Dental Exam: Normal Neck exam: Normal Neck: Positive: 1 Respiratory: Positive: Rhonchi, Wheezing Cardiovascular Exam: Normal Abdominal Exam: Normal Musculoskeletal Exam: Normal Neurological Exam: Normal Psychological Exam: Normal Skin Exam: Normal Throat Pain/Nasal Course/Dx - Differential Dx/Diagnosis Provider Diagnoses: cough. sinusitis Discharge - Discharge Plan Condition: Stable Disposition: HOME Prescriptions: Amoxicillin/Clavulanate TAB* [Augmentin TAB 875*] 875 mg PO BID #20 tab Guaifenesin-Codeine [Cheratussin AC] 1 teasp PO Q8H PRN #120 ml MDD 15 ml PRN Reason: Cough LoraTADine TAB(NF) [Claritin 10 MG TAB(NF)] 10 mg PO DAILY #30 tab Patient Education Materials: Sinusitis (ED) Referrals: Linwood Hicks MD [Primary Care Provider] -
[2017-03-26 15:25] VITALS: BP 139/68
== END 2017-03-26 15:37 | disposition home or self-care (01) ==
LOC: UCCORT 14:10
DX: J32.9 Chronic sinusitis, unspecified (principal); F17.210 Nicotine dependence, cigarettes, uncomplicated; Z88.7 Allergy status to serum and vaccine; Z88.6 Allergy status to analgesic agent; Z88.8 Allergy status to other drugs, medicaments and biological substances; Z88.1 Allergy status to other antibiotic agents; Z88.2 Allergy status to sulfonamides
CPT/HCPCS: 99212; G0463

== ENCOUNTER 2018-06-12 15:36 | Emergency (ER) | payer MEDICARE, MEDICAID ==
--- NOTE | 2018-06-12 17:39 | ED ---
Lower Extremity - HPI Summary HPI Summary: Patient is a 72 y/o female who presents to the ED c/o right foot pain. As per daughter, she stubbed her right great toe 2 months ago on a coffee table. She went to [facility] and was given a boot for her right foot. Since then she has hit her food several more times. Patient reports pain to her right great toe and heel, which is made worse by wearing shoes. Daughter notes extremely dry feet and a cracked heal, but denies any open wounds. Patient is able to bear weight. Daughter also notes that patient is not compliant with her medications, however patient states she takes her DM medications regularly. Her BG last week was 391. Patient has not seen her PCP since June 2017 but has an appointment tomorrow at 11:00. PMHx DM, HTN. Patient is a heavy smoker. - History of Current Complaint Chief Complaint: EDExtremityLower Stated Complaint: FOOT PAIN, INJURY TYPE 2 DIABETIC Time Seen by Provider: 06/12/18 17:14 Hx Obtained From: Patient, Family/Hydraulic Punch Press Operator - Daughter Mechanism Of Injury: Blunt Trauma - hit toe on coffee table Onset/Duration: Still Present - 2 months ago Severity Currently: Moderate Pain Intensity: 5 Pain Scale Used: 0-10 Numeric Timing: Constant Location: Is Discrete @ - right great toe, right heel Aggravating Factor(s): Other - wearing shoes Alleviating Factor(s): Nothing Able to Bear Weight: Yes - Allergies/Home Medications Allergies/Adverse Reactions: Allergies Allergy/AdvReac Type Severity Reaction Status Date / Time MS Tetanus Toxoid Allergy Severe Hives Verified 03/26/17 15:17 [Tetanus Toxoid] MS Ibuprofen [Ibuprofen] Allergy Rash Verified 03/26/17 15:17 MS Lisinopril [Lisinopril] Allergy Swelling Verified 03/26/17 15:17 Of Face,Lips,& Throat MS Beta Adrenergic Blockers AdvReac Stomach Verified 03/26/17 15:17 [Beta Adrenergic Blockers] Cramps MS Metronidazole AdvReac Diarrhea Verified 03/26/17 15:17 [From Flagyl] MS Sulfa Antibiotics AdvReac Vomiting Verified 03/26/17 15:17 [Sulfa Antibiotics] STEROID AdvReac Severe ELEVATE Uncoded 03/26/17 15:17 BLOOD SUGAR PMH/Surg Hx/FS Hx/Imm Hx Endocrine/Hematology History: Reports: Hx Diabetes Denies: Hx Thyroid Disease Cardiovascular History: Reports: Hx Coronary Artery Disease, Hx Hypertension Denies: Hx Pacemaker/ICD Respiratory History: Denies: Hx Asthma, Hx Chronic Obstructive Pulmonary Disease (COPD) GI History: Reports: Hx Gastroesophageal Reflux Disease, Other GI Disorders - ovarian cyst Denies: Hx Ulcer Musculoskeletal History: Reports: Other Musculoskeletal History - hx of bulging discs and sciatic nerve problems Denies: Hx Scoliosis Sensory History: Reports: Hx Contacts or Glasses Denies: Hx Hearing Aid Comment Only: Hx Cataracts - cataract sx ~3 yrs ago Opthamlomology History: Reports: Hx Contacts or Glasses Comment Only: Hx Cataracts - cataract sx ~3 yrs ago EENT History: Reports: Other - TMJ Neurological History: Denies: Hx Headaches, Other Neuro Impairments/Disorders Psychiatric History: Denies: Hx Panic Disorder - Cancer History Hx Chemotherapy: No Hx Radiation Therapy: No - Surgical History Surgery Procedure, Year, and Place: right wrist surgery, titanium bar in place. 3 Cardiac stents -XIENCE V - MRI CONDITIONAL 5 UP TO 3T : 06/11/08. OVARIAN CYST REMOVAL - Immunization History Date of Tetanus Vaccine: UNK Date of Influenza Vaccine: 01/10/16 Infectious Disease History: No Infectious Disease History: Denies: Hx Hepatitis, Hx Human Immunodeficiency Virus (HIV), Traveled Outside the [place] in Last 30 Days - Family History Known Family History: Positive: Cardiac Disease - Father, Diabetes - Mother, Children, Other - CANCER HISTORY, SON & FATHER - Social History Alcohol Use: None Hx Substance Use: No Substance Use Type: Reports: None Hx Tobacco Use: Yes Smoking Status (MU): Heavy Every Day Tobacco Smoker Type: Cigarettes Amount Used/How Often: 1.5-2 ppd Review of Systems Positive: Myalgia - right great toe and heel Positive: Other - cracked heel right All Other Systems Reviewed And Are Negative: Yes Physical Exam - Summary Physical Exam Summary: Appearance: no pain distress, poorly kempt, appears older than stated Skin: warm, dry, reflects adequate perfusion, erythema of all toes of right foot , thickening of right sole with crack at heel without active bleeding, no evidence for acute infection Head/face: normal Eyes: EOMI, MASSIEL ENT: mucous membranes moist Neck: supple, non-tender Respiratory: breath sounds present, expiratory wheezes, harsh cough Cardiovascular: RRR, pulses symmetrical Abdomen: non-tender, soft Bowel Sounds: present Musculoskeletal: normal, strength/ROM intact, able to bear weight on RLE Neuro: normal, sensory motor intact, A&Ox3 Triage Information Reviewed: Yes Vital Signs On Initial Exam: Initial Vitals Temp Pulse Resp BP Pulse Ox 98.7 F 87 17 152/75 93 06/12/18 15:48 06/12/18 15:48 06/12/18 15:48 06/12/18 15:48 06/12/18 15:48 Vital Signs Reviewed: Yes Diagnostics - Vital Signs Vital Signs Temp Pulse Resp BP Pulse Ox 06/12/18 15:48 98.7 F 87 17 152/75 93 - Laboratory Lab Statement: Any lab studies that have been ordered have been reviewed, and results considered in the medical decision making process. - Radiology Foot XR Radiology Interpretation Completed By: Radiologist Summary of Radiographic Findings: Negative for fracture or malalignment. Bone density appears decreased throughout. Mild osteoarthritis at the first metatarsal phalangeal joint. Mild soft tissue edema at the heel fat pad. ED physician reviewed radiology report. Lower Extremity Course/Dx - Course Course Of Treatment: Nurse's notes reviewed. Patient is a noncompliant diabetic who is here for chronic foot discomfort and redness brought in by her daughter. Patient does not want to be here and only wants superficial treatment. She does have a primary care appointment tomorrow. She has chronic erythema and a cracking of the sole on the right heel. There is no evidence of deeper infection. X-rays negative for fracture or osteomyelitis. She'll be treated for fungal infection and follow-up with primary care physician. Recommended to see podiatry. - Diagnoses Differential Diagnosis/HQI/PQRI: Positive: Contusion, Fracture (Closed), Fracture (Open), Infection, Osteomyelitis Provider Diagnoses: Non compliance w medication regimen, Tinea pedis Discharge - Sign-Out/Discharge Documenting (check all that apply): Patient Departure - Discharge Patient Received Moderate/Deep Sedation with Procedure: No - Discharge Plan Condition: Stable Disposition: HOME Prescriptions: Clotrimazole [Fungi Cure] 1 spray .SEE ORDER TID 21 Days #1 bottle Patient Education Materials: Skin Yeast Infection (ED) Referrals: Fatimah Ba MD [Primary Care Provider] - Additional Instructions: See your doctor for health maintenance tomorrow and have them refer you to podiatry. Return if worse, new symptoms or other concerns. Take all medications as prescribed. - Billing Disposition and Condition Condition: STABLE Disposition: Home - Attestation Statements Document Initiated by Bhupinder: Yes Documenting Scribe: Danii Estrada Provider For Whom Bhupinder is Documenting (Include Credential): Carlos Ascencio MD Scribe Attestation: IDanii, scribed for Carlos Ascencio MD on 06/12/18 at 2105. Scribe Documentation Reviewed: Yes Provider Attestation: The documentation as recorded by the Danii altamirano accurately reflects the service I personally performed and the decisions made by , Carlos Ascencio MD Status of Scribe Document: Viewed
[2018-06-12 18:12] VITALS: BP 145/84
== END 2018-06-12 18:11 | disposition home or self-care (01) ==
LOC: ED 15:36
DX: B35.3 Tinea pedis (principal); Z91.14 Patient's other noncompliance with medication regimen; M79.671 Pain in right foot; I25.10 Atherosclerotic heart disease of native coronary artery without angina pectoris; I10 Essential (primary) hypertension; K21.9 Gastro-esophageal reflux disease without esophagitis; F17.210 Nicotine dependence, cigarettes, uncomplicated
CPT/HCPCS: 99282

== ENCOUNTER 2019-02-20 12:06 | Inpatient (IN) | payer MEDICARE ==
--- NOTE | 2019-02-20 12:27 | ED ---
Complex/Multi-Sys Presentation - HPI Summary HPI Summary: Pt. is a 73 y.o female who presents to the ER by her daughter for evaluation of generalized weakness. Daughter states pt. lives alone and has been falling recently. Past hx of HTN, smoker, DM, CAD, CVA. Daughter states pt. was dx with osteo. to right great toe a few weeks ago at [facility]. Daughter states they wanted to admit her but she signed out AMA. She is following with Dr. Ferreira and is currently on Levaquin. Pt.'s daughter states she went to help pt. today when she noted scraps on her legs and hands. Pt. denies falling but today pt. unable to ambulate secondary to weakness. Pt. denies any complaints. Sxs are moderate in severity. No current modifying factors. - History Of Current Complaint Chief Complaint: EDGeneral Time Seen by Provider: 02/20/19 12:21 Hx Obtained From: Patient, Family/Business Developer - Allergies/Home Medications Allergies/Adverse Reactions: Allergies Allergy/AdvReac Type Severity Reaction Status Date / Time ibuprofen Allergy Rash Verified 02/20/19 12:52 lisinopril Allergy Swelling Verified 02/20/19 12:52 Of Face,Lips,& Throat Tetanus Vaccines and Toxoid Allergy Hives Verified 02/20/19 12:52 Corticosteroids AdvReac Severe See Comment Verified 02/20/19 15:47 (Glucocorticoids) Beta-Blockers AdvReac Stomach Verified 02/20/19 12:53 (Beta-Adrenergic Bloc Cramps metronidazole AdvReac Diarrhea Verified 02/20/19 12:53 Sulfa (Sulfonamide AdvReac Vomiting Verified 02/20/19 12:53 Antibiotics) Home Medications: Home Medications Cyanocobalamin TAB* [Vitamin B12 TAB*] 500 mcg PO DAILY 02/20/19 [History Confirmed 02/20/19] Levofloxacin TAB* [Levaquin TAB*] 500 mg PO DAILY 02/20/19 [History Confirmed ] Multivitamins/Minerals TAB* [Thera M Plus TAB*] 1 tab PO DAILY 02/20/19 [ History Confirmed 02/20/19] PMH/Surg Hx/FS Hx/Imm Hx Previously Healthy: Yes Endocrine/Hematology History: Reports: Hx Diabetes Denies: Hx Thyroid Disease Cardiovascular History: Reports: Hx Coronary Artery Disease, Hx Hypertension Denies: Hx Pacemaker/ICD Respiratory History: Denies: Hx Asthma, Hx Chronic Obstructive Pulmonary Disease (COPD) GI History: Reports: Hx Gastroesophageal Reflux Disease, Other GI Disorders - ovarian cyst Denies: Hx Ulcer Musculoskeletal History: Reports: Other Musculoskeletal History - hx of bulging discs and sciatic nerve problems Denies: Hx Scoliosis Sensory History: Reports: Hx Contacts or Glasses Denies: Hx Hearing Aid Comment Only: Hx Cataracts - cataract sx ~3 yrs ago Opthamlomology History: Reports: Hx Contacts or Glasses Comment Only: Hx Cataracts - cataract sx ~3 yrs ago Neurological History: Denies: Hx Headaches, Other Neuro Impairments/Disorders Psychiatric History: Denies: Hx Panic Disorder - Cancer History Hx Chemotherapy: No Hx Radiation Therapy: No - Surgical History Surgery Procedure, Year, and Place: right wrist surgery, titanium bar in place. 3 Cardiac stents -[facility] - MRI CONDITIONAL 5 UP TO 3T : 06/11/08. OVARIAN CYST REMOVAL - Immunization History Date of Tetanus Vaccine: UNK Date of Influenza Vaccine: 01/10/16 Infectious Disease History: No Infectious Disease History: Denies: Hx Hepatitis, Hx Human Immunodeficiency Virus (HIV), Traveled Outside the [place] in Last 30 Days - Family History Known Family History: Positive: Cardiac Disease - Father, Diabetes - Mother, Children, Other - CANCER HISTORY, SON & FATHER - Social History Alcohol Use: None Hx Substance Use: No Substance Use Type: Reports: None Hx Tobacco Use: Yes Smoking Status (MU): Heavy Every Day Tobacco Smoker Type: Cigarettes Amount Used/How Often: 1.5-2 ppd Review of Systems Constitutional: Negative Negative: Fever Cardiovascular: Negative Negative: Palpitations, Chest Pain Respiratory: Negative Negative: Shortness Of Breath, Cough Gastrointestinal: Negative Negative: Abdominal Pain, Vomiting, Diarrhea Genitourinary: Negative Positive: Other - abrasions to arms and legs. Positive: Bruising Neurological: Negative All Other Systems Reviewed And Are Negative: Yes Physical Exam Triage Information Reviewed: Yes Vital Signs On Initial Exam: Initial Vitals Temp Pulse Resp BP Pulse Ox 97.6 F 93 17 173/118 92 02/20/19 12:13 02/20/19 12:13 02/20/19 12:13 02/20/19 12:13 02/20/19 12:13 Vital Signs Reviewed: Yes Appearance: Positive: Thin - Pt. sitting up in bed in NAD. Answers questions appropriately. Daughter present. Skin: Positive: Warm, Dry Head/Face: Positive: Normal Head/Face Inspection Eyes: Positive: Normal, EOMI, MASSIEL Neck: Positive: Supple Respiratory/Lung Sounds: Positive: Clear to Auscultation, Breath Sounds Present Cardiovascular: Positive: Normal, RRR Abdomen Description: Positive: Nontender, Soft Musculoskeletal: Positive: Other - Superificial abraions to legs. Diminished pedal pulse to right foot. Toenail on great toe is loose. 5/5 strength in bilateral UEs and LEs. Neurological: Positive: Normal, CN Intact II-III Psychiatric: Positive: Affect/Mood Appropriate Procedures - Sedation Patient Received Moderate/Deep Sedation with Procedure: No Diagnostics - Vital Signs Vital Signs Temp Pulse Resp BP Pulse Ox 02/20/19 12:13 97.6 F 93 17 173/118 92 - Laboratory Result Diagrams: 02/20/19 14:51 02/20/19 16:20 Lab Statement: Any lab studies that have been ordered have been reviewed, and results considered in the medical decision making process. Complex Multi-Symp Course/Dx Course Of Treatment: Pt. presenting with daughter for concerns of generalized weakness. Daughter notes poor PO intake as well. Afebrile. BP elevated. Pt. very upset she is in the ED. Pt. repeats that she does not want to be admitted to the hospital and that she is "fine.". ECG done at 1302 shows a sinsus rhythm of 88bpm, normal axis, no STEMI, similar to prior tracings. CBC shows WBC of 13.6, H and H 16.4 and 49, Na 131, Cl 93, anion gap 16, glucose 647, lactic 2.9, trop 0.03. VBG shows pH of 7.26. Pt. started on 2 liters NSS and started on bolus and IV insulin drip. Discussed with pt. and daughter. Pt. states she does not want to be admitted. Discussed with pt. what is going on and that she is very sick. Pt. keeps stating she is fine and is unable to tell me the risk of going home. Pt. is not competent to make her own decisions. Pt.' s daughter is agreeable to admission. Case discussed with roughing mill operator, Dr. Hunter, who accepts pt. for admission. - Diagnoses Differential Diagnoses/HQI/PQRI: Metabolic Abnormality, Sepsis, Urinary Tract Infection Provider Diagnoses: Diabetic keto-acidosis - Critical Care Time Critical Care Time: 30-74 min - Crital care 30 minutes including direct pt. care and consultation. Discharge ED - Sign-Out/Discharge Documenting (check all that apply): Patient Departure - Discharge Plan Condition: Stable Disposition: ADMITTED TO [facility] - Billing Disposition and Condition Condition: STABLE Disposition: Admitted to [facility] - Attestation Statements Provider Attestation: I have seen the patient with the PARVIZ and agree with the plan and documentation below except as noted: 72-year-old female with history of diabetes presents with elevated glucose, found to be in DKA. Patient requesting leave, however history of confusion does not have decision-making capacity. Daughter in agreement with admission. Start insulin Kyara Samson MD
[2019-02-20 13:07] LABS: ABS Lymphocytes 0.7 10^3/ul (1.0-4.8); ABS Monocytes 0.5 10^3/ul (0-0.8); ABS Neutrophils 12.3 10^3/ul (1.5-7.7); Eosinophil % 0.1 %; Hematocrit 49 % (35-47); Hemoglobin 16.4 g/dL (12.0-16.0); Lymphocyte % 5.4 %; Mean Corpuscular HGB Conc 34 g/dL (31-36); Mean Corpuscular Hemoglobin 30 pg (27-31); Mean Corpuscular Volume 90 fL (80-97); Mean Platelet Volume 8.1 fL (7.4-10.4); Platelet Count 289 10^3/uL (150-450); Red Blood Count 5.42 10^6 /uL (3.70-4.87); Red Cell Distribution Width 14 % (10-15); White Blood Count 13.6 10^3/uL (3.5-10.8)
[2019-02-20 13:25] LABS: ALT 23 U/L (7-52); AST 18 U/L (13-39); Albumin 4.3 g/dL (3.2-5.2); Albumin/Globulin Ratio 1.5 (1-3); Alkaline Phosphatase 99 U/L (34-104); Anion Gap 16 mmol/L (2-11); BUN/Creatinine Ratio 38.7 (8-20); Blood Urea Nitrogen 41 mg/dL (6-24); C Reactive Protein 4.08 mg/L (<8.01); CO2 Carbon Dioxide 22 mmol/L (22-32); Calcium 10.6 mg/dL (8.6-10.3); Chloride 93 mmol/L (101-111); EGFR African American 61.5 (>60); EGFR Non-African American 50.8 (>60); Globulin 2.9 g/dL (2-4); Magnesium 1.9 mg/dL (1.9-2.7); Potassium 4.9 mmol/L (3.5-5.0); Sodium 131 mmol/L (135-145); Total Protein 7.2 g/dL (6.4-8.9)
[2019-02-20] MEDS ORDERED: NS 0.9% 1000 ML** 1,000 ML IV ONE ×3 (13:26→14:33)
[2019-02-20] MEDS ORDERED: Ondansetron INJ* 2 MG/ML VIAL IV ONE (13:27)
[2019-02-20 13:28] LABS: Glucose 647 mg/dL (70-100); Troponin I 0.03 ng/mL (<0.03)
[2019-02-20 13:32] LABS: Urine Appearance Cloudy; Urine Bilirubin Negative (Negative); Urine Blood 1+ (Negative); Urine Color Yellow; Urine Glucose 3+(>=500 mg/dL) (Negative); Urine Ketones 1+ (Negative); Urine Nitrite Negative (Negative); Urine Protein Negative (Negative); Urine Specific Gravity 1.016 (1.010-1.030); Urine Urobilinogen Negative (Negative)
[2019-02-20] MEDS ORDERED: Insulin Infusion 100unit/100mL 100 UNITS/100 ML UNIT IV ONE ×2 (13:33→14:01)
[2019-02-20 13:34] LABS: Urine Bacteria Absent (Absent); Urine Red Blood Cell 1+(3-5/hpf) (Absent); Urine Squamous Epithelial Cell Present (Absent); Urine White Blood Cell 1+(6-10/hpf) (Absent)
[2019-02-20] MEDS ORDERED: Insulin REGULAR(*) 1 UNITS UNIT IV PUSH ONE ×2 (13:34→13:46)
[2019-02-20] MEDS ORDERED: Insulin REGULAR(*) 1 UNITS UNIT ONE (13:45)
[2019-02-20 14:58] LABS: ABS Lymphocytes 0.6 10^3/ul (1.0-4.8); ABS Monocytes 0.3 10^3/ul (0-0.8); ABS Neutrophils 11.5 10^3/ul (1.5-7.7); Eosinophil % 0.1 %; Hematocrit 44 % (35-47); Hemoglobin 14.7 g/dL (12.0-16.0); Mean Corpuscular HGB Conc 33 g/dL (31-36); Mean Corpuscular Hemoglobin 30 pg (27-31); Mean Corpuscular Volume 90 fL (80-97); Mean Platelet Volume 7.8 fL (7.4-10.4); Nucleated Red Blood Cells % 0.1; Platelet Count 237 10^3/uL (150-450); Red Blood Count 4.89 10^6 /uL (3.70-4.87); Red Cell Distribution Width 14 % (10-15); White Blood Count 12.4 10^3/uL (3.5-10.8)
[2019-02-20] MEDS ORDERED: Insulin Infusion 100unit/100mL 100 UNITS/100 ML UNIT IV SCH (15:00)
[2019-02-20 15:05] LABS: Activated Partial Thrombo Time 26.4 seconds (26.0-38.0); INR 0.97 (0.82-1.09)
[2019-02-20 15:21] LABS: EGFR African American 71.5 (>60); EGFR Non-African American 59.1 (>60)
[2019-02-20 16:42] LABS: Urine Appearance Cloudy; Urine Bilirubin Negative (Negative); Urine Blood Negative (Negative); Urine Color Yellow; Urine Glucose 3+(>=500 mg/dL) (Negative); Urine Ketones 1+ (Negative); Urine Nitrite Negative (Negative); Urine Protein Negative (Negative); Urine Specific Gravity 1.015 (1.010-1.030); Urine Urobilinogen Negative (Negative)
[2019-02-20 16:51] LABS: Anion Gap 8 mmol/L (2-11); BUN/Creatinine Ratio 37.9 (8-20); Blood Urea Nitrogen 33 mg/dL (6-24); CO2 Carbon Dioxide 23 mmol/L (22-32); Calcium 8.4 mg/dL (8.6-10.3); Chloride 106 mmol/L (101-111); EGFR African American 77.2 (>60); EGFR Non-African American 63.8 (>60); Glucose 379 mg/dL (70-100); Potassium 4.1 mmol/L (3.5-5.0); Sodium 137 mmol/L (135-145)
--- NOTE | 2019-02-20 16:58 | HP ---
HISTORY AND PHYSICAL: DATE OF ADMISSION: 02/20/19 PRIMARY CARE PROVIDER: Dr. Vora. REASON FOR PRESENTATION TO THE HOSPITAL/CHIEF COMPLAINT: Generalized weakness and falls. HISTORY OF PRESENT ILLNESS: The patient is a 73-year-old female with possible dementia. The patient is a poor historian, not able to provide much history. She has been saying that she wanted to leave and go home. Most of the history is provided by the daughter. Information also obtained from ED records and with direct discussion with ARVIN Phan. The patient was brought into the emergency room by her daughter for evaluation of generalized weakness and for fall yesterday. She lives alone, the patient's sister lives next door and helps her with activities of daily living. The patient lives in first floor and her bathroom is in the second floor of the house. The patient apparently fell yesterday forward while walking up stairs. No history of trauma to the head or to the back. She has chronic back pain though. The patient has osteomyelitis of the right great toe. She has been following up with infectious disease as outpatient and has been on Levaquin daily. There is a concern with vascular insufficiency and she is scheduled to see vascular surgeon. As per the patient's daughter, the patient's blood sugars have been drawing in 500s for past few days. She is currently not on any medications for her diabetes. She also has a history of coronary artery disease and CVA in the past, however, she is not taking any medications. She has a history of being noncompliant with medications and also follow up with the primary care providers. As per the daughter, her primary care provider did not think it was safe to have the patient on medications to control her diabetes. The patient also takes ibuprofen for pain. The patient has had nausea, had vomited after coughing bouts today. She ambulates but is very unsteady in her gait as per daughter. She denies any chest pain, palpitations, dizziness, loss of weight or appetite. She is depressed with the of her son recently with cancer and has not been eating well. Further evaluation in the emergency room showed elevated white count at 13.6. The patient also appear to be dehydrated and was found to be in DKA. Her blood gas showed evidence of acidosis. She was also noted to have elevated anion gap acidosis. The patient also noted to have elevated lactic acid on repeat labs. Her troponin was elevated at 0.03. Her blood sugar was 647 on arrival. After 5 units, improved to 521. The patient also with acute renal failure secondary to dehydration and DKA. Chest x-ray did not reveal any acute abnormalities. Her EKG showed sinus rhythm with heart rate around 65. The patient is being admitted to ICU for management of DKA and sepsis. PAST MEDICAL HISTORY: 1. Hypertension. 2. Diabetes. 3. Coronary artery disease. 4. History of prior CVA. 5. Possible COPD. 6. Osteomyelitis of the right great toe. 7. GERD. 8. Ovarian cyst. 9. Chronic back pain from bulging disks and sciatic nerve. 10. Cataract status post surgery 3 years ago. PAST SURGICAL HISTORY: 1. Right wrist surgery with titanium bar. 2. Three cardiac stents done at [place]. 3. Stents placed in [place] in 2008. 4. Ovarian cyst removal. ALLERGIES: IBUPROFEN, LISINOPRIL, TETANUS, BETA-KATHY, METRONIDAZOLE, SULFA, STEROID. FAMILY HISTORY: Cardiac disease in father. Diabetes in mother. Cancer in son and father. SOCIAL HISTORY: Current smoker, smoked for 1.5 to 5 packs per day. No alcohol or drug abuse. REVIEW OF SYSTEMS: As per the patient's daughter. PHYSICAL EXAMINATION GENERAL: Elderly female, thin, appears significantly dry, in no apparent distress. VITAL SIGNS: Temperature 98, pulse 86 beats per minute, respiratory rate 16 per minute, O2 sat 96% on 2 L, blood pressure 153/107. HEENT: Pupils are equal, reactive to light. Mucous membranes are moist. LUNGS: Diminished air entry bilaterally. Clear to auscultation. CARDIOVASCULAR: S1, S2 present. ABDOMEN: Soft, nontender, nondistended. Bowel sounds present. EXTREMITIES: Skin changes present in right lower extremity. Right big toe nail bed is raised and erythematous. Also black eschar like lesion on the right toe. NEUROLOGIC: Alert and oriented to self, no focal deficits. PSYCHIATRIC: Anxious. SKIN: Above mentioned changes in extremity exam. DIAGNOSTIC STUDIES/LAB DATA: WBC count 12.4, hemoglobin 14.7, hematocrit 44, platelet count of 237. Blood gas analysis showed pH of 7.32, PCO2 of 40, PO2 of 69 with O2 sat 96%, bicarb of 20. Sodium 131, potassium 4.9, chloride 93, bicarb 22, BUN 41, creatinine 1.06. Anion gap 16. Glucose 647 improved to 521 after 5 units, the patient started on insulin drip. Lactate 1.8 on admission, 2.9 on repeat. Troponin x1 elevated at 0.03. Rest of the labs were within normal limits. Chest x-ray and EKG as described above. ASSESSMENT AND PLAN: 73-year-old female with diabetes, not being treated currently with recent osteomyelitis admitted with generalized weakness, found to be in diabetic ketoacidosis. 1. Diabetic ketoacidosis secondary to uncontrolled diabetes and osteomyelitis. 2. Osteomyelitis of right toe, on antibiotics. 3. Generalized weakness and confusion secondary to underlying disease. 4. Metabolic acidosis. 5. Lactic acidosis. 6. Hyponatremia. 7. Elevated troponins likely secondary to dehydration, renal failure. 8. Acute renal failure. The patient is admitted to ICU for DKA management. The patient is started on insulin drip. The patient received 3 L of IV fluid boluses in the ED. She will be continued on normal saline at 150 cc/hour. Will monitor BNP q.4 hours. Septic workup was ordered. Will monitor troponins closely. Diabetic ketoacidosis protocol was ordered. The patient also with history of hypertension, coronary artery disease, currently not on any medications. She had 3 stents placed in 2008. She has history of noncompliance with medical follow ups, recently followed up with her primary care physician Dr. Vora, no medications were started for her. She has not been following with Endocrinology for her diabetic management. The patient is full code at this time. DVT and GI prophylaxis ordered. TIME SPENT: Total time spent on history and physical 45 minutes. [id number]/[facility] #: [id number] BAILEY
[2019-02-20 16:59] LABS: Troponin I 0.03 ng/mL (<0.03)
[2019-02-20] MEDS ORDERED: D5W 1/2 NS 1000 ML BAG* 1,000 ML IV SCH (17:00)
[2019-02-20] MEDS: NS 0.9% 1000 ML** 1,000 ML IV SCH (17:11)
[2019-02-20] MEDS ORDERED: Insulin GLARGINE(*) 1 UNITS UNIT ONE (17:20)
[2019-02-20] MEDS ORDERED: Insulin GLARGINE(*) 1 UNITS UNIT SUBCUT ONE (17:30)
[2019-02-20] MEDS ORDERED: Levofloxacin 750 MG IVPREMIX(* 750 MG/150 ML BAG IVPB SCH (18:00)
[2019-02-20] MEDS ORDERED: Dextrose 50% VIAL 50 ml IV PUSH PRN (18:36)
[2019-02-20] MEDS: Insulin LISPRO* 1 UNITS UNIT SUBCUT SCH (20:07)
[2019-02-20 20:41] LABS: Troponin I 0.04 ng/mL (<0.03)
[2019-02-20 21:09] LABS: Anion Gap 9 mmol/L (2-11); BUN/Creatinine Ratio 38.7 (8-20); Blood Urea Nitrogen 29 mg/dL (6-24); CO2 Carbon Dioxide 23 mmol/L (22-32); Calcium 8.4 mg/dL (8.6-10.3); Chloride 107 mmol/L (101-111); EGFR African American 91.7 (>60); EGFR Non-African American 75.7 (>60); Glucose 244 mg/dL (70-100); Potassium 4.2 mmol/L (3.5-5.0); Sodium 139 mmol/L (135-145)
[2019-02-20] MEDS: Heparin VIAL(*) 5000 UNITS/ML VIAL (FIVE THOUSAND) SUBCUT SCH (21:12)
[2019-02-21] MEDS: Insulin LISPRO* 1 UNITS UNIT SUBCUT SCH ×7 (00:04→21:29)
[2019-02-21 00:22] LABS: BUN/Creatinine Ratio 38.5 (8-20); Calcium 8.6 mg/dL (8.6-10.3); EGFR African American 108.1 (>60); EGFR Non-African American 89.3 (>60); Potassium 3.8 mmol/L (3.5-5.0)
[2019-02-21] MEDS: NS 0.9% 1000 ML** 1,000 ML IV SCH ×2 (01:00→07:50)
[2019-02-21] MEDS ORDERED: Acetaminophen TAB* 325 MG ONE (03:29)
[2019-02-21] MEDS: Acetaminophen TAB* 325 MG PO PRN ×3 (03:31→21:28)
[2019-02-21 04:12] LABS: BUN/Creatinine Ratio 37.1 (8-20); Blood Urea Nitrogen 23 mg/dL (6-24); CO2 Carbon Dioxide 24 mmol/L (22-32); Calcium 8.1 mg/dL (8.6-10.3); Chloride 109 mmol/L (101-111); EGFR African American 114.2 (>60); EGFR Non-African American 94.4 (>60); Glucose 129 mg/dL (70-100); Sodium 139 mmol/L (135-145)
[2019-02-21 04:24] LABS: Anion Gap 6 mmol/L (2-11)
[2019-02-21 08:28] LABS: BUN/Creatinine Ratio 38.8 (8-20); Blood Urea Nitrogen 19 mg/dL (6-24); CO2 Carbon Dioxide 19 mmol/L (22-32); EGFR African American 149.8 (>60); EGFR Non-African American 123.8 (>60); Glucose 156 mg/dL (70-100); Sodium 139 mmol/L (135-145)
[2019-02-21 08:32] LABS: Chloride 114 mmol/L (101-111)
[2019-02-21 09:07] LABS: Anion Gap 6 mmol/L (2-11)
[2019-02-21] MEDS ORDERED: NS 0.9% 1000 ML** 1,000 ML IV SCH (09:45)
--- NOTE | 2019-02-21 10:16 | PN ---
Progress Note - Progress Note Date of Service: 02/21/19 - Transfer note Note: Pt seen and examined at bedside. DKA resolved, AG closed and pt was transitioned to subcutaneous insulin. Pt declined O2 cannula, O2 sats remian in high 80s. Pt denies any complaints this am. Active Medications Generic Name Dose Route Start Last Admin Trade Name Freq PRN Reason Stop Dose Admin Acetaminophen 650 mg 02/21/19 03:17 02/21/19 03:31 Tylenol Tab* PO 650 mg Q4H PRN Administration FEVER/PAIN Cyanocobalamin 500 mcg 02/21/19 09:00 Vitamin B12 Tab* PO DAILY SHAHIDA Dextrose 25 ml 02/20/19 18:36 Dextrose 50% Vial 50 Ml* IV PUSH .FOR FS < 60 - SS PRN FS < 60 Heparin Sodium (Porcine) 5,000 units 02/20/19 21:00 02/20/19 21:12 Heparin Vial(*) SUBCUT 5,000 units Q12HR SHAHIDA Administration Levofloxacin/Dextrose 750 mg in 150 mls @ 150 mls/hr 02/20/19 18:00 02/20/19 17:28 Levaquin 750 Mg Ivpremix(*) IVPB 150 mls/hr Q48H SHAHIDA Administration Protocol Sodium Chloride 1,000 mls @ 150 mls/hr 02/20/19 15:45 02/21/19 07:50 Ns 0.9% 1000 Ml IV 150 mls/hr PER RATE SHAHIDA Administration Potassium Chloride 20 meq in 100 mls @ 50 mls/hr 02/21/19 10:00 Potassium Chloride 20 Meq/100 Ml Ivpremix* IV 02/21/19 13:59 Q2H [facility] Insulin Human Lispro 0 units 02/20/19 20:00 02/21/19 08:01 Humalog* SUBCUT Not Given FS Q4 ICU [facility] Protocol Nicotine 1 patch 02/21/19 09:00 Nicotine Patch 14 Mg/24 Hr* TRANSDERM DAILY [facility] Pharmacy Profile Note 1 note 02/21/19 21:00 Nicotine Patch Removal Note* PATCH OFF 2100 [facility] Vital Signs Temp Pulse Resp BP Pulse Ox 100.6 F 81 17 142/57 85 02/21/19 07:43 02/21/19 08:01 02/21/19 08:01 02/21/19 08:01 02/21/19 08:01 O/E: Thin female, appearing older than stated age HEENT: PERRLA, no JVD, mucus membranes dry Lungs: Distant breath sounds, no wheeze CVS: S1, S2+, LE pulses sluggish but palpable Abd: Soft, BS+ Ext: Normal ROM, Rt toe nail elevated, peeling off, skin changes Neuro: Pt agitated at times, no focal deficits Skin: Erythematous and black area concerning for necrosis on Rt great toe Laboratory Results - last 24 hr 02/20/19 02/20/19 02/20/19 12:55 12:55 12:55 WBC 13.6 H RBC 5.42 H Hgb 16.4 H Hct 49 H MCV 90 MCH 30 MCHC 34 RDW 14 Plt Count 289 MPV 8.1 Neut % (Auto) 90.7 Lymph % (Auto) 5.4 G[place] % (Auto) 3.6 Eos % (Auto) 0.1 Baso % (Auto) 0.2 Absolute Neuts (auto) 12.3 H Absolute Lymphs (auto) 0.7 L Absolute Monos (auto) 0.5 Absolute Eos (auto) 0.0 Absolute Basos (auto) 0.0 Absolute Nucleated RBC 0.0 Nucleated RBC % 0.0 INR (Anticoag Therapy) APTT Patient Temperature ABG pH ABG pH (Temp Correct) ABG pCO2 ABG pCO2 (Temp Corrct ABG pO2 ABG pO2 (Temp Correct ABG HCO3 ABG O2 Saturation ABG Base Excess VBG pH VBG pCO2 VBG pO2 VBG HCO3 VBG O2 Saturation VBG Base Excess Respiration Rate Ventilator Type Vent Mode FiO2 Inspiratory Time PEEP Pressure Support Pressure Control EPAP IPAP BiPAP Sodium 131 L Potassium 4.9 Chloride 93 L Carbon Dioxide 22 Anion Gap 16 H BUN 41 H Creatinine 1.06 H Est GFR ( Amer) 61.5 Est GFR (Non-Af Amer) 50.8 BUN/Creatinine Ratio 38.7 H Glucose 647 H* POC Glucose (mg/dL) Lactic Acid 1.8 Calcium 10.6 H Magnesium 1.9 Total Bilirubin 0.50 AST 18 ALT 23 Alkaline Phosphatase 99 Troponin I 0.03 H* C-Reactive Protein 4.08 Total Protein 7.2 Albumin 4.3 Globulin 2.9 Albumin/Globulin Ratio 1.5 TSH 0.80 Urine Color Urine Appearance Urine pH Ur Specific [place] Urine Protein Urine Ketones Urine Blood Urine Nitrate Urine Bilirubin Urine Urobilinogen Ur Leukocyte Esterase Urine WBC (Auto) Urine RBC (Auto) Ur Squamous Epith Cells Urine Bacteria Urine Glucose 02/20/19 02/20/19 02/20/19 13:22 13:43 13:44 WBC RBC Hgb Hct MCV MCH MCHC RDW Plt Count MPV Neut % (Auto) Lymph % (Auto) [place] % (Auto) Eos % (Auto) Baso % (Auto) Absolute Neuts (auto) Absolute Lymphs (auto) Absolute Monos (auto) Absolute Eos (auto) Absolute Basos (auto) Absolute Nucleated RBC Nucleated RBC % INR (Anticoag Therapy) APTT Patient Temperature ABG pH ABG pH (Temp Correct) ABG pCO2 ABG pCO2 (Temp Corrct ABG pO2 ABG pO2 (Temp Correct ABG HCO3 ABG O2 Saturation ABG Base Excess VBG pH 7.26 L VBG pCO2 57 H VBG pO2 < 38.0 VBG HCO3 21.4 L VBG O2 Saturation 38.0 L VBG Base Excess -2.4 L Respiration Rate Ventilator Type Vent Mode FiO2 Inspiratory Time PEEP Pressure Support Pressure Control EPAP IPAP BiPAP Sodium Potassium Chloride Carbon Dioxide Anion Gap BUN Creatinine Est GFR ( Amer) Est GFR (Non-Af Amer) BUN/Creatinine Ratio Glucose POC Glucose (mg/dL) Lactic Acid 2.9 H* Calcium Magnesium Total Bilirubin AST ALT Alkaline Phosphatase Troponin I C-Reactive Protein Total Protein Albumin Globulin Albumin/Globulin Ratio TSH Urine Color Yellow Urine Appearance Cloudy Urine pH 5.0 Ur Specific [place] 1.016 Urine Protein Negative Urine Ketones 1+ A Urine Blood 1+ A Urine Nitrate Negative Urine Bilirubin Negative Urine Urobilinogen Negative Ur Leukocyte Esterase Negative Urine WBC (Auto) 1+(6-10/hpf) A Urine RBC (Auto) 1+(3-5/hpf) A Ur Squamous Epith Cells Present A Urine Bacteria Absent Urine Glucose 3+(>=500 mg/dl) A 02/20/19 02/20/19 02/20/19 14:40 14:48 14:48 WBC RBC Hgb Hct MCV MCH MCHC RDW Plt Count MPV Neut % (Auto) Lymph % (Auto) [place] % (Auto) Eos % (Auto) Baso % (Auto) Absolute Neuts (auto) Absolute Lymphs (auto) Absolute Monos (auto) Absolute Eos (auto) Absolute Basos (auto) Absolute Nucleated RBC Nucleated RBC % INR (Anticoag Therapy) 0.97 APTT 26.4 Patient Temperature ABG pH ABG pH (Temp Correct) ABG pCO2 ABG pCO2 (Temp Corrct ABG pO2 ABG pO2 (Temp Correct ABG HCO3 ABG O2 Saturation ABG Base Excess VBG pH VBG pCO2 VBG pO2 VBG HCO3 VBG O2 Saturation VBG Base Excess Respiration Rate Ventilator Type Vent Mode FiO2 Inspiratory Time PEEP Pressure Support Pressure Control EPAP IPAP BiPAP Sodium Potassium Chloride Carbon Dioxide Anion Gap BUN 39 H Creatinine 0.93 Est GFR ( Amer) 71.5 Est GFR (Non-Af Amer) 59.1 BUN/Creatinine Ratio Glucose 521 H* POC Glucose (mg/dL) > 444 H* Lactic Acid Calcium Magnesium Total Bilirubin AST ALT Alkaline Phosphatase Troponin I C-Reactive Protein Total Protein Albumin Globulin Albumin/Globulin Ratio TSH Urine Color Urine Appearance Urine pH Ur Specific [place] Urine Protein Urine Ketones Urine Blood Urine Nitrate Urine Bilirubin Urine Urobilinogen Ur Leukocyte Esterase Urine WBC (Auto) Urine RBC (Auto) Ur Squamous Epith Cells Urine Bacteria Urine Glucose 02/20/19 02/20/19 02/20/19 14:51 15:22 16:20 WBC 12.4 H RBC 4.89 H Hgb 14.7 Hct 44 MCV 90 MCH 30 MCHC 33 RDW 14 Plt Count 237 MPV 7.8 Neut % (Auto) 92.1 Lymph % (Auto) 5.0 G[place] % (Auto) 2.6 Eos % (Auto) 0.1 Baso % (Auto) 0.2 Absolute Neuts (auto) 11.5 H Absolute Lymphs (auto) 0.6 L Absolute Monos (auto) 0.3 Absolute Eos (auto) 0.0 Absolute Basos (auto) 0.0 Absolute Nucleated RBC 0.0 Nucleated RBC % 0.1 INR (Anticoag Therapy) APTT Patient Temperature Not Reportable ABG pH 7.32 L ABG pH (Temp Correct) Not Reportable ABG pCO2 40 ABG pCO2 (Temp Corrct Not Reportable ABG pO2 69 L ABG pO2 (Temp Correct Not Reportable ABG HCO3 20.7 ABG O2 Saturation 96.2 ABG Base Excess -5.2 L VBG pH VBG pCO2 VBG pO2 VBG HCO3 VBG O2 Saturation VBG Base Excess Respiration Rate Not Reportable Ventilator Type Not Reportable Vent Mode Not Reportable FiO2 2 Inspiratory Time Not Reportable PEEP Not Reportable Pressure Support Not Reportable Pressure Control Not Reportable EPAP Not Reportable IPAP Not Reportable BiPAP Not Reportable Sodium Potassium Chloride Carbon Dioxide Anion Gap BUN Creatinine Est GFR ( Amer) Est GFR (Non-Af Amer) BUN/Creatinine Ratio Glucose POC Glucose (mg/dL) Lactic Acid 2.0 Calcium Magnesium Total Bilirubin AST ALT Alkaline Phosphatase Troponin I C-Reactive Protein Total Protein Albumin Globulin Albumin/Globulin Ratio TSH Urine Color Urine Appearance Urine pH Ur Specific [place] Urine Protein Urine Ketones Urine Blood Urine Nitrate Urine Bilirubin Urine Urobilinogen Ur Leukocyte Esterase Urine WBC (Auto) Urine RBC (Auto) Ur Squamous Epith Cells Urine Bacteria Urine Glucose 02/20/19 02/20/19 02/20/19 16:20 16:20 16:23 WBC RBC Hgb Hct MCV MCH MCHC RDW Plt Count MPV Neut % (Auto) Lymph % (Auto) [place] % (Auto) Eos % (Auto) Baso % (Auto) Absolute Neuts (auto) Absolute Lymphs (auto) Absolute Monos (auto) Absolute Eos (auto) Absolute Basos (auto) Absolute Nucleated RBC Nucleated RBC % INR (Anticoag Therapy) APTT Patient Temperature ABG pH ABG pH (Temp Correct) ABG pCO2 ABG pCO2 (Temp Corrct ABG pO2 ABG pO2 (Temp Correct ABG HCO3 ABG O2 Saturation ABG Base Excess VBG pH VBG pCO2 VBG pO2 VBG HCO3 VBG O2 Saturation VBG Base Excess Respiration Rate Ventilator Type Vent Mode FiO2 Inspiratory Time PEEP Pressure Support Pressure Control EPAP IPAP BiPAP Sodium 137 Potassium 4.1 Chloride 106 Carbon Dioxide 23 Anion Gap 8 BUN 33 H Creatinine 0.87 Est GFR ( Amer) 77.2 Est GFR (Non-Af Amer) 63.8 BUN/Creatinine Ratio 37.9 H Glucose 379 H POC Glucose (mg/dL) 352 H Lactic Acid Calcium 8.4 L Magnesium Total Bilirubin AST ALT Alkaline Phosphatase Troponin I 0.03 H* C-Reactive Protein Total Protein Albumin Globulin Albumin/Globulin Ratio TSH Urine Color Yellow Urine Appearance Cloudy Urine pH 5.0 Ur Specific [place] 1.015 Urine Protein Negative Urine Ketones 1+ A Urine Blood Negative Urine Nitrate Negative Urine Bilirubin Negative Urine Urobilinogen Negative Ur Leukocyte Esterase Negative Urine WBC (Auto) Urine RBC (Auto) Ur Squamous Epith Cells Urine Bacteria Urine Glucose 3+(>=500 mg/dl) A 02/20/19 02/20/19 02/20/19 17:18 18:18 20:00 WBC RBC Hgb Hct MCV MCH MCHC RDW Plt Count MPV Neut % (Auto) Lymph % (Auto) [place] % (Auto) Eos % (Auto) Baso % (Auto) Absolute Neuts (auto) Absolute Lymphs (auto) Absolute Monos (auto) Absolute Eos (auto) Absolute Basos (auto) Absolute Nucleated RBC Nucleated RBC % INR (Anticoag Therapy) APTT Patient Temperature ABG pH ABG pH (Temp Correct) ABG pCO2 ABG pCO2 (Temp Corrct ABG pO2 ABG pO2 (Temp Correct ABG HCO3 ABG O2 Saturation ABG Base Excess VBG pH VBG pCO2 VBG pO2 VBG HCO3 VBG O2 Saturation VBG Base Excess Respiration Rate Ventilator Type Vent Mode FiO2 Inspiratory Time PEEP Pressure Support Pressure Control EPAP IPAP BiPAP Sodium 139 Potassium 4.2 Chloride 107 Carbon Dioxide 23 Anion Gap 9 BUN 29 H Creatinine 0.75 Est GFR ( Amer) 91.7 Est GFR (Non-Af Amer) 75.7 BUN/Creatinine Ratio 38.7 H Glucose 244 H POC Glucose (mg/dL) 271 H 220 H Lactic Acid Calcium 8.4 L Magnesium Total Bilirubin AST ALT Alkaline Phosphatase Troponin I 0.04 H* C-Reactive Protein Total Protein Albumin Globulin Albumin/Globulin Ratio TSH Urine Color Urine Appearance Urine pH Ur Specific [place] Urine Protein Urine Ketones Urine Blood Urine Nitrate Urine Bilirubin Urine Urobilinogen Ur Leukocyte Esterase Urine WBC (Auto) Urine RBC (Auto) Ur Squamous Epith Cells Urine Bacteria Urine Glucose 02/20/19 02/20/19 02/21/19 20:02 23:58 00:00 WBC RBC Hgb Hct MCV MCH MCHC RDW Plt Count MPV Neut % (Auto) Lymph % (Auto) [place] % (Auto) Eos % (Auto) Baso % (Auto) Absolute Neuts (auto) Absolute Lymphs (auto) Absolute Monos (auto) Absolute Eos (auto) Absolute Basos (auto) Absolute Nucleated RBC Nucleated RBC % INR (Anticoag Therapy) APTT Patient Temperature ABG pH ABG pH (Temp Correct) ABG pCO2 ABG pCO2 (Temp Corrct ABG pO2 ABG pO2 (Temp Correct ABG HCO3 ABG O2 Saturation ABG Base Excess VBG pH VBG pCO2 VBG pO2 VBG HCO3 VBG O2 Saturation VBG Base Excess Respiration Rate Ventilator Type Vent Mode FiO2 Inspiratory Time PEEP Pressure Support Pressure Control EPAP IPAP BiPAP Sodium 140 Potassium 3.8 Chloride 109 Carbon Dioxide 25 Anion Gap 6 BUN 25 H Creatinine 0.65 Est GFR ( Amer) 108.1 Est GFR (Non-Af Amer) 89.3 BUN/Creatinine Ratio 38.5 H Glucose 182 H POC Glucose (mg/dL) 216 H 158 H Lactic Acid Calcium 8.6 Magnesium Total Bilirubin AST ALT Alkaline Phosphatase Troponin I C-Reactive Protein Total Protein Albumin Globulin Albumin/Globulin Ratio TSH Urine Color Urine Appearance Urine pH Ur Specific [place] Urine Protein Urine Ketones Urine Blood Urine Nitrate Urine Bilirubin Urine Urobilinogen Ur Leukocyte Esterase Urine WBC (Auto) Urine RBC (Auto) Ur Squamous Epith Cells Urine Bacteria Urine Glucose 02/21/19 02/21/19 02/21/19 03:30 03:37 04:30 WBC RBC Hgb Hct MCV MCH MCHC RDW Plt Count MPV Neut % (Auto) Lymph % (Auto) [place] % (Auto) Eos % (Auto) Baso % (Auto) Absolute Neuts (auto) Absolute Lymphs (auto) Absolute Monos (auto) Absolute Eos (auto) Absolute Basos (auto) Absolute Nucleated RBC Nucleated RBC % INR (Anticoag Therapy) APTT Patient Temperature ABG pH ABG pH (Temp Correct) ABG pCO2 ABG pCO2 (Temp Corrct ABG pO2 ABG pO2 (Temp Correct ABG HCO3 ABG O2 Saturation ABG Base Excess VBG pH VBG pCO2 VBG pO2 VBG HCO3 VBG O2 Saturation VBG Base Excess Respiration Rate Ventilator Type Vent Mode FiO2 Inspiratory Time PEEP Pressure Support Pressure Control EPAP IPAP BiPAP Sodium 139 Potassium TNP TNP Chloride 109 Carbon Dioxide 24 Anion Gap 6 BUN 23 Creatinine 0.62 Est GFR ( Amer) 114.2 Est GFR (Non-Af Amer) 94.4 BUN/Creatinine Ratio 37.1 H Glucose 129 H POC Glucose (mg/dL) 114 H Lactic Acid Calcium 8.1 L Magnesium Total Bilirubin AST ALT Alkaline Phosphatase Troponin I C-Reactive Protein Total Protein Albumin Globulin Albumin/Globulin Ratio TSH Urine Color Urine Appearance Urine pH Ur Specific [place] Urine Protein Urine Ketones Urine Blood Urine Nitrate Urine Bilirubin Urine Urobilinogen Ur Leukocyte Esterase Urine WBC (Auto) Urine RBC (Auto) Ur Squamous Epith Cells Urine Bacteria Urine Glucose 02/21/19 02/21/19 02/21/19 04:45 07:59 08:03 WBC RBC Hgb Hct MCV MCH MCHC RDW Plt Count MPV Neut % (Auto) Lymph % (Auto) [place] % (Auto) Eos % (Auto) Baso % (Auto) Absolute Neuts (auto) Absolute Lymphs (auto) Absolute Monos (auto) Absolute Eos (auto) Absolute Basos (auto) Absolute Nucleated RBC Nucleated RBC % INR (Anticoag Therapy) APTT Patient Temperature ABG pH ABG pH (Temp Correct) ABG pCO2 ABG pCO2 (Temp Corrct ABG pO2 ABG pO2 (Temp Correct ABG HCO3 ABG O2 Saturation ABG Base Excess VBG pH VBG pCO2 VBG pO2 VBG HCO3 VBG O2 Saturation VBG Base Excess Respiration Rate Ventilator Type Vent Mode FiO2 Inspiratory Time PEEP Pressure Support Pressure Control EPAP IPAP BiPAP Sodium 139 Potassium 3.7 TNP Chloride 114 H Carbon Dioxide 19 L Anion Gap 6 BUN 19 Creatinine 0.49 L Est GFR ( Amer) 149.8 Est GFR (Non-Af Amer) 123.8 BUN/Creatinine Ratio 38.8 H Glucose 156 H POC Glucose (mg/dL) 148 H Lactic Acid Calcium 7.0 L Magnesium Total Bilirubin AST ALT Alkaline Phosphatase Troponin I C-Reactive Protein Total Protein Albumin Globulin Albumin/Globulin Ratio TSH Urine Color Urine Appearance Urine pH Ur Specific [place] Urine Protein Urine Ketones Urine Blood Urine Nitrate Urine Bilirubin Urine Urobilinogen Ur Leukocyte Esterase Urine WBC (Auto) Urine RBC (Auto) Ur Squamous Epith Cells Urine Bacteria Urine Glucose Transfer summary: 73 y o f current smoker with h/o dementia, HTN, DM, CAD s/p 3 stents in 2008 at [place], COPD, OM dx recently on Levaquin and f/u with Dr Mae as out pt. Pt was brought in by daughter 02/20/19 for evaluation of gen weakness, was found to have DKA. Pt has not been on any medications other than Ibuprofen and Levaquin 500mg daily. 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 Her sugars have been around 500 for few days as per daughter. Pt received 3L IVF boluses and was continued on normal saline at 150ccc/hr last night. Pt was started on Insulin drip, her gap closed, was transitioned to long acting Insulin. Pt is eating currenlty, fluids changed to 50cc/hr. Potassium replacement was ordered this morning. She will c/w sliding scale Insulin and Lantus at night. Pt is hypertensive, allergic to Lisinopril. She will need to be started on beta blockers/ARBs Pt with possible COPD, no acute exacerbation or wheeze currently. She is hypoxic on RA and has been declining O2. She has agreed to having nasal cannula on after discussion this morning, sats improved to 95 on 2L. Pt would need O2 on d/c. CXR shows hyperinflation without any air space opacities. She had CT for lung cancer screening in 2017 that showed emphysematous changes without any suspicious nodules. Pt will need low dose CT for lung cancer screening as out pt. Pt with CAD and stent placement, she will need to be on ASA. Pt with OM of rt great toe, on Levaquin every other day, dose as per pharmacy. Pt with elevated WBC count sec to OM. Septic w/u is pending. She is scheduled to see vascular sx as out pt. Her nail of rt great toe is raised from nail bed, pulses are palpable with no obvious ulcers however skin changes are concerning for necrosis. pt also with falls at home as per daughter. She has bruises on her knees and elbows from recent falls. She has chronic back pain and is taking Ibuprofen as out pt. Pt presented with acute renal failure sec to DKA and dehydration that has resolved. Received 40mEq of potassium this am. Pt declined castillo catheter. She has OOB to chair and bathroom privileges ordered. Changed IVF to 50cc/hr. Pt is full code as per daughter. Pt is stable to be transferred to regular medical floor under Dr Agustin`s service. D/w dr Agustin and bedside RN
[2019-02-21] MEDS: Cyanocobalamin TAB* 500 MCG PO SCH (10:35)
[2019-02-21] MEDS: Heparin VIAL(*) 5000 UNITS/ML VIAL (FIVE THOUSAND) SUBCUT SCH ×2 (10:36→21:30)
[2019-02-21] MEDS: Nicotine PATCH 14 MG/24 HR* PATCH TRANSDERM SCH (10:36)
[2019-02-21] MEDS: KCL 20 MEQ/100 ML IVPREMIX* 20 MEQ/100 ML BAG IV SCH ×2 (10:36→11:33)
[2019-02-21] MEDS ORDERED: Haloperidol INJ IV/IM* 5 MG/ML AMP IM ONE (11:07)
[2019-02-21] MEDS ORDERED: Potassium Chlor TAB* 20 MEQ TAB.ER PO ONE (11:13)
[2019-02-21] MEDS ORDERED: Haloperidol INJ IV/IM* 5 MG/ML AMP ONE (11:15)
[2019-02-21 13:52] LABS: BUN/Creatinine Ratio 31.1 (8-20); Calcium 8.3 mg/dL (8.6-10.3); EGFR African American 116.3 (>60); EGFR Non-African American 96.1 (>60); Potassium 3.5 mmol/L (3.5-5.0)
[2019-02-21] MEDS: Nicotine Patch Removal NOTE PATCH OFF SCH (21:38)
[2019-02-21] MEDS: oxyCODONE/Acetamin 5/325 MG* TAB PO PRN (22:55)
[2019-02-22] MEDS: Morphine INJ* 2 MG/ML 1 ML SYRINGE (TWO MG - NEW SYRINGE VERSION) IV PRN (00:52)
[2019-02-22] MEDS: Cyanocobalamin TAB* 500 MCG PO SCH (08:56)
[2019-02-22] MEDS: Insulin LISPRO* 1 UNITS UNIT SUBCUT SCH ×4 (08:56→20:39)
[2019-02-22] MEDS: oxyCODONE/Acetamin 5/325 MG* TAB PO PRN ×3 (08:56→22:02)
[2019-02-22] MEDS: Nicotine PATCH 14 MG/24 HR* PATCH TRANSDERM SCH (08:56)
[2019-02-22] MEDS: Heparin VIAL(*) 5000 UNITS/ML VIAL (FIVE THOUSAND) SUBCUT SCH ×2 (08:56→20:39)
--- NOTE | 2019-02-22 12:23 | PN ---
Subjective Date of Service: 02/22/19 Interval History: Reports feeling tired.otherwise no complaints.reports that she was not taking any meds for diabetes at home Objective Active Medications: Acetaminophen (Tylenol Tab*) 650 mg PO Q4H PRN PRN Reason: FEVER/PAIN Last Admin: 02/21/19 21:28 Dose: 650 mg Cyanocobalamin (Vitamin B12 Tab*) 500 mcg PO DAILY [facility] Last Admin: 02/22/19 08:56 Dose: 500 mcg Dextrose (Dextrose 50% Vial 50 Ml*) 25 ml IV PUSH .FOR FS < 60 - SS PRN PRN Reason: FS < 60 Heparin Sodium (Porcine) (Heparin Vial(*)) 5,000 units SUBCUT Q12HR [facility] Last Admin: 02/22/19 08:56 Dose: 5,000 units Levofloxacin/Dextrose (Levaquin 750 Mg Ivpremix(*)) 750 mg in 150 mls @ 150 mls /hr IVPB Q48H [facility]; Protocol Last Admin: 02/20/19 17:28 Dose: 150 mls/hr Insulin Human Lispro (Humalog*) 0 units SUBCUT ACHS [facility]; Protocol Last Admin: 02/22/19 08:56 Dose: 2 unit Morphine Sulfate (Morphine Inj (Syringe))*) 2 mg IV Q2H PRN PRN Reason: PAIN - SEVERE Last Admin: 02/22/19 00:52 Dose: 2 mg Nicotine (Nicotine Patch 14 Mg/24 Hr*) 1 patch TRANSDERM DAILY [facility] Last Admin: 02/22/19 08:56 Dose: 1 patch Oxycodone/Acetaminophen (Percocet 5/325 Tab*) 1 tab PO Q4H PRN PRN Reason: PAIN - MODERATE Last Admin: 02/22/19 08:56 Dose: 1 tab Pharmacy Profile Note (Nicotine Patch Removal Note*) 1 note PATCH OFF 2100 [facility] Last Admin: 02/21/19 21:38 Dose: 1 note Vital Signs - 8 hr 02/22/19 02/22/19 02/22/19 07:15 07:57 08:56 Temperature 98.7 F Pulse Rate 83 Respiratory 20 20 20 Rate Blood Pressure 154/58 (mmHg) O2 Sat by Pulse 95 Oximetry Oxygen Devices in Use Now: Nasal Cannula Eyes: No Scleral Icterus Ears/Nose/Mouth/Throat: NL Teeth, Lips, Gums Neck: NL Appearance and Movements; NL JVP Respiratory: Symmetrical Chest Expansion and Respiratory Effort Abdominal: NL Sounds; No Tenderness; No Distention Extremities: - - toe ulcers with gangrene/known OM Result Diagrams: 02/20/19 14:51 02/21/19 13:30 Microbiology and Other Data: Microbiology 02/20/19 16:50 Aerobic Blood Culture - Preliminary Blood Venous No Growth Day 1 Anaerobic Blood Culture - Preliminary No Growth Day 1 02/20/19 17:00 Aerobic Blood Culture - Preliminary Blood Venous No Growth Day 1 Anaerobic Blood Culture - Preliminary No Growth Day 1 02/20/19 13:22 Urine Culture - Final Urine No Growth (<1,000 CFU/mL) 02/20/19 16:25 Nasal Screen MRSA (PCR) - Final Nasal Mrsa Not Detected Assess/Plan/Problems-Billing Assessment: - Patient Problems (1) DKA (diabetic ketoacidoses) Current Visit: Yes Status: Acute Code(s): E11.10 - TYPE 2 DIABETES MELLITUS WITH KETOACIDOSIS WITHOUT COMA SNOMED Code(s): 901285481 Comment: Was on insulin drip, iv fluids in the icu initially transferred from icu to floor yesterday continue lantus,iss will check hba1c to lisa discussed importance of managing her diabetes with pt already has toe ulcers and complications of diabetes was not on meds at home (2) Osteomyelitis Current Visit: Yes Status: Acute Code(s): M86.9 - OSTEOMYELITIS, UNSPECIFIED SNOMED Code(s): 36284289 Comment: was following with dr ye as an outpt and was on po levaquin 500 mg is on levaquin every 48h here per renal adjustment as fx better, will go back to 500 mg po daily and further management per ID/ outpt wound care (3) Hypertension Current Visit: Yes Status: Acute Code(s): I10 - ESSENTIAL (PRIMARY) HYPERTENSION SNOMED Code(s): 16791660 Comment: allergic to lisinopril not on bp meds at home will start amlodipine and titrate (4) COPD (chronic obstructive pulmonary disease) Current Visit: Yes Status: Acute Code(s): J44.9 - CHRONIC OBSTRUCTIVE PULMONARY DISEASE, UNSPECIFIED SNOMED Code(s): 62825049 Comment: likely underlying copd ongoing smoking counselled on smoking cessation pulm notes evaluated may need oxygen at discharge outpt pulm f/u based on progress,will adress need for inhalers no pcn on cxr Status and Disposition: pt/ot eval
[2019-02-22] MEDS: Levofloxacin TAB* 500 MG PO SCH (13:09)
[2019-02-22] MEDS: amLODIPine TAB* 5 MG PO SCH (13:10)
[2019-02-22] MEDS: Acetaminophen TAB* 325 MG PO PRN (19:45)
[2019-02-22] MEDS: Nicotine Patch Removal NOTE PATCH OFF SCH (20:38)
[2019-02-23 04:10] LABS: ABS Basophils 0.1 10^3/ul (0-0.2); ABS Eosinophils 0.1 10^3/ul (0-0.6); ABS Lymphocytes 1.4 10^3/ul (1.0-4.8); ABS Monocytes 0.7 10^3/ul (0-0.8); ABS Neutrophils 5.2 10^3/ul (1.5-7.7); Eosinophil % 1.2 %; Hematocrit 38 % (35-47); Hemoglobin 12.7 g/dL (12.0-16.0); Lymphocyte % 18.6 %; Mean Corpuscular HGB Conc 34 g/dL (31-36); Mean Corpuscular Hemoglobin 30 pg (27-31); Mean Corpuscular Volume 89 fL (80-97); Mean Platelet Volume 7.6 fL (7.4-10.4); Nucleated Red Blood Cells % 0.1; Platelet Count 202 10^3/uL (150-450); Red Blood Count 4.27 10^6 /uL (3.70-4.87); Red Cell Distribution Width 14 % (10-15); White Blood Count 7.5 10^3/uL (3.5-10.8)
[2019-02-23 04:29] LABS: BUN/Creatinine Ratio 27.3 (8-20); Calcium 8.6 mg/dL (8.6-10.3); EGFR African American 131.1 (>60); EGFR Non-African American 108.3 (>60); Potassium 3.4 mmol/L (3.5-5.0)
[2019-02-23] MEDS: Heparin VIAL(*) 5000 UNITS/ML VIAL (FIVE THOUSAND) SUBCUT SCH ×2 (08:30→20:36)
[2019-02-23] MEDS: Nicotine PATCH 14 MG/24 HR* PATCH TRANSDERM SCH (08:30)
[2019-02-23] MEDS: Insulin LISPRO* 1 UNITS UNIT SUBCUT SCH ×4 (08:30→20:36)
[2019-02-23] MEDS: Cyanocobalamin TAB* 500 MCG PO SCH (08:31)
[2019-02-23] MEDS: oxyCODONE/Acetamin 5/325 MG* TAB PO PRN ×3 (08:31→23:41)
[2019-02-23] MEDS: amLODIPine TAB* 5 MG PO SCH (08:31)
[2019-02-23] MEDS: Levofloxacin TAB* 500 MG PO SCH (12:38)
--- NOTE | 2019-02-23 16:36 | PN ---
Subjective Date of Service: 02/23/19 Interval History: Patient not a good historian. States she stubbed her toe 2 weeks ago. In fact she has osteomyelitis RT great toe for months. She has been denying falls at home, and telling different stories to daughter about a fall. Now she says she tripped over her cat. She does not know why she's in the hospital. Family History: Unchanged from Admission Social History: Unchanged from Admission Past Medical History: Unchanged from Admission Objective Active Medications: Acetaminophen (Tylenol Tab*) 650 mg PO Q4H PRN PRN Reason: FEVER/PAIN Last Admin: 02/22/19 19:45 Dose: 650 mg Amlodipine Besylate (Norvasc Tab*) 10 mg PO DAILY [facility] Last Admin: 02/23/19 08:31 Dose: 10 mg Cyanocobalamin (Vitamin B12 Tab*) 500 mcg PO DAILY [facility] Last Admin: 02/23/19 08:31 Dose: 500 mcg Dextrose (Dextrose 50% Vial 50 Ml*) 25 ml IV PUSH .FOR FS < 60 - SS PRN PRN Reason: FS < 60 Heparin Sodium (Porcine) (Heparin Vial(*)) 5,000 units SUBCUT Q12HR [facility] Last Admin: 02/23/19 08:30 Dose: 5,000 units Insulin Glargine (Lantus(*)) 10 units SUBCUT Q24H [facility] Insulin Human Lispro (Humalog*) 0 units SUBCUT ACHS [facility]; Protocol Last Admin: 02/23/19 12:37 Dose: 3 unit Levofloxacin (Levaquin Tab*) 500 mg PO Q24H [facility]; Protocol Last Admin: 02/23/19 12:38 Dose: 500 mg Morphine Sulfate (Morphine Inj (Syringe))*) 2 mg IV Q2H PRN PRN Reason: PAIN - SEVERE Last Admin: 02/22/19 00:52 Dose: 2 mg Nicotine (Nicotine Patch 14 Mg/24 Hr*) 1 patch TRANSDERM DAILY [facility] Last Admin: 02/23/19 08:30 Dose: 1 patch Oxycodone/Acetaminophen (Percocet 5/325 Tab*) 1 tab PO Q4H PRN PRN Reason: PAIN - MODERATE Last Admin: 02/23/19 08:31 Dose: 1 tab Potassium Chloride (Klor Con Er Tab*) 10 meq PO BID [facility] Vital Signs - 8 hr 02/23/19 02/23/19 10:31 11:15 Temperature 36.6 C Pulse Rate 82 Respiratory 20 18 Rate Blood Pressure 143/57 (mmHg) Oxygen Devices in Use Now: Nasal Cannula Appearance: alert, conversant Eyes: No Scleral Icterus Neck: NL Appearance and Movements; NL JVP Respiratory: Symmetrical Chest Expansion and Respiratory Effort, Clear to Auscultation Cardiovascular: NL Sounds; No Murmurs; No JVD, RRR Abdominal: NL Sounds; No Tenderness; No Distention Skin: - - bandage RT forefoot Neurological: - - oriented to self, place, does not know year, day of week, recent holiday Lines/Tubes/Other Access: Clean, Dry and Intact Peripheral IV Nutrition: Taking PO's - Nutrition: Malnutrition Diagnosis/Plan Malnutrition Assessment by Registered Dietitian: Malnutrition Assessment Clinical Characteristics Chronic,Severe Malnutrition Assessment: Muscle Wasting - Temporal (severe) Criteria Inadequate Oral Intake - Pt noted w/ variable intake; consumed 0-90% all meals since adm - Anticipate meeting <75% nutrient needs >1 mo given wt changes (severe) Unintentional Weight Loss - Pt noted w/ wt loss per records; current wt 100lb, prev wt 120lb (2018) - 16.7% loss x9 mos (severe) Malnutrition Assessment: Nutritional Supplementals/Nourishments - Will Interventions trial Glucerna (220kcal, 10g prot/serv) at HS snack daily to optimize kcal/prot intake; will monitor acceptance Glycemic Control - Agree w/ consistent carb diet ; will continue to monitor BG/FS in the setting of T2DM Education - Pt inappropriate for nutrition education at this time; will f/u to provide nutrition education as appropriate and/or w/ family present Malnutrition Assessment: Goals 1) Adequate po intake to replete lean body mass and support hydration status 2) Maintain fluid/electrolyte balance w/ adequate po intake 3) Improve glycemic control w/ adequate po and consistent carb intake in the setting of T2DM 4) Maintain bowel regularity w/ adequate po intake w/o development of diarrhea/constipation 5) Questions regarding diet will be answered prior to d/c Result Diagrams: 02/23/19 03:57 02/23/19 03:57 Additional Lab and Data: Laboratory Tests 02/23/19 02/23/19 02/23/19 03:57 03:57 06:55 Glucose 262 H POC Glucose (mg/dL) 228 H Hemoglobin A1c 16.0 H 02/23/19 11:49 Glucose POC Glucose (mg/dL) 271 H Hemoglobin A1c Microbiology and Other Data: Microbiology 02/20/19 16:25 Nasal Nasal Screen MRSA (PCR) - Final Mrsa Not Detected 02/20/19 13:22 Urine Urine Culture - Final No Growth (<1,000 CFU/mL) 02/20/19 17:00 Blood Venous Aerobic Blood Culture - Preliminary 02/20/19 17:00 Blood Venous Anaerobic Blood Culture - Preliminary No Growth Day 2 No Growth Day 2 02/20/19 16:50 Blood Venous Aerobic Blood Culture - Preliminary 02/20/19 16:50 Blood Venous Anaerobic Blood Culture - Preliminary No Growth Day 2 No Growth Day 2 Assess/Plan/Problems-Billing Assessment: 73 year old woman with type 2 DM, RT great toe osteomyelitis, admitted with DKA and lactic acidosis. 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 -Sugars not <200, continue sliding scale at higher intensity. (2) Hypertension Current Visit: Yes Status: Acute Priority: High Code(s): I10 - ESSENTIAL ( PRIMARY) HYPERTENSION SNOMED Code(s): 28962635 Comment: -BP improved on norvasc -doubt allergy to lisinopril, patient has reported "allergies" to almost every drug she has tried (3) Tobacco abuse Current Visit: No Status: Acute Priority: Medium Code(s): Z72.0 - TOBACCO USE SNOMED Code(s): 870916194 Comment: - nicotine replacement - smoking cessation (4) DVT prophylaxis Current Visit: No Status: Acute Priority: Low Code(s): RQK7104 - SNOMED Code(s): 094396674 Comment: -SCDs (5) Osteomyelitis Current Visit: Yes Status: Acute Priority: Medium Code(s): M86.9 - OSTEOMYELITIS, UNSPECIFIED SNOMED Code(s): 14985456 Comment: -Continue levaquin at renal dose (6) Impaired decision making Current Visit: Yes Status: Acute Priority: Medium Code(s): Z78.9 - OTHER SPECIFIED HEALTH STATUS SNOMED Code(s): 265605935 Comment: -Appreciate psychiatry consult, discussed with Dr. Brasher. -Patient does not have capacity to refuse medical care -Daughter Anna is health care proxy, she would prefer to make homecare arrangements over STR. (7) Hypokalemia Current Visit: Yes Status: Acute Priority: Medium Code(s): E87.6 - HYPOKALEMIA SNOMED Code(s): 42744718 Comment: -oral supplementation started -Recheck in AM (8) Severe malnutrition due to type 2 diabetes mellitus Current Visit: Yes Status: Acute Priority: Medium Code(s): E11.69 - TYPE 2 DIABETES MELLITUS WITH OTHER SPECIFIED COMPLICATION; E43 - UNSPECIFIED SEVERE PROTEIN-CALORIE MALNUTRITION SNOMED Code(s): 13991378771268 Comment: -Taking adequate nutrition now -Use of insulin will facilitate uptake of calories Status and Disposition: inpatient, advising STR if not willing to have home services set up
--- NOTE | 2019-02-23 16:45 | CONSULT ---
Consult Consult: Consult for Medical Decision Making Capacity S: Psychiatry is asked to evaluate capacity in this 73 y.o. single, white female with a history of poorly controlled Type II DM and several recent falls who presents with osteomylitis of the right helux, confusion and inability to care for herself living independently in the community. The primary team is concerned that her poor adherence to treatment could lead to further DKA and worsening of her toe infection with possible loss of limbs or sepsis. The attending, Dr. Linwood Hicks states the patient is refusing indicated MICHAEL care. On exam the patient is somewhat irritable and dismissive, sitting in the room with her daughter Anna. "I don't know how many times I have to tell you people I 'm not [facility]!" She either cannot or will not give me a reason for this opinion and is minimally cooperative with the assessment, despite her daughter cajoling her frequently to participate. The patient believes she was admitted to the hospital because "I stubbed my toe." She demonstrates no awareness of either her diabetic instability, toe infection nor recent falls. When I ask the potential risks of returning home without rehab or further care, she responds "Nothing's gonna happen...I've lived on my own for years." O: aging white female appearing frail and undernourished; dressed in patient gown with limited grooming; speech has normal rate/tone/volume; somewhat annoyed with this interview; euthymic mood with mildly irritable affect; denies SI or HI; insight and judgment poor given insistence on going home without rehab ; awake and alert; oriented somewhat to place but not at all to time or situation A/P: Capacity: During our interaction, Ms. Georges failed to demonstrate a reasonable understanding of her illness and the events leading to hospitalization. She could articulate what future treatment course has been recommended by her inpatient providers and could articulate a choice, however, she could not state any risks of refusing said treatment. In my judgment, she lacks the capacity to make an informed decision about refusing MICHAEL placement. Capacity is subject to change in these situations and psychiatry can be re- consulted in the event of any significant changes in the patient's presentation. I have discussed my opinion with the patient and Dr. Hicks.
[2019-02-23] MEDS ORDERED: Insulin LISPRO* 1 UNITS UNIT SUBCUT ONE (17:30)
[2019-02-23] MEDS ORDERED: Insulin GLARGINE(*) 1 UNITS UNIT SUBCUT SCH (19:00)
[2019-02-23] MEDS: Potassium Chlor TAB* 10 MEQ TAB.ER PO SCH (20:36)
[2019-02-23] MEDS: Nicotine Patch Removal NOTE PATCH OFF SCH (20:37)
[2019-02-23] MEDS ORDERED: Nicotine* 2MG (FRUIT FLAVOR) GUM PO PRN (20:52)
[2019-02-23] MEDS: Haloperidol INJ IV/IM* 5 MG/ML AMP IM PRN (21:04)
[2019-02-23] MEDS ORDERED: diPHENhydraMINE IV* 50 MG/ML 1 ml VIAL (BENADRYL) SLOW PUSH ONE (21:24)
[2019-02-24] MEDS: Morphine INJ* 2 MG/ML 1 ML SYRINGE (TWO MG - NEW SYRINGE VERSION) IV PRN ×2 (02:39→08:53)
[2019-02-24] MEDS: Insulin LISPRO* 1 UNITS UNIT SUBCUT SCH ×4 (08:46→22:00)
[2019-02-24] MEDS: Nicotine PATCH 14 MG/24 HR* PATCH TRANSDERM SCH (08:48)
[2019-02-24] MEDS: Heparin VIAL(*) 5000 UNITS/ML VIAL (FIVE THOUSAND) SUBCUT SCH ×2 (08:49→22:01)
[2019-02-24] MEDS: amLODIPine TAB* 5 MG PO SCH (08:49)
[2019-02-24] MEDS: Potassium Chlor TAB* 10 MEQ TAB.ER PO SCH ×3 (08:50→22:03)
[2019-02-24] MEDS: Cyanocobalamin TAB* 500 MCG PO SCH (08:51)
[2019-02-24] MEDS: Levofloxacin TAB* 500 MG PO SCH (12:19)
--- OUTSIDE RECORDS SUMMARY | 2019-02-24 14:55 | XMS REPORT | Continuity of Care Document ---
:1945 External Reference #:[id number] Author Name Shefali Vora MD (transmitted by agent of provider Mariza House) Address [address], [place] [address] Care Team Providers Name Role Phone Jemma Strong MD - Care Team Information Manager Technical Sales [phone] Endocrinology, Diabetes & Metabolism Solomon Orellana MD - Care Team Information Manager Technical Sales [phone] Endocrinology, Diabetes & Metabolism Jaspal Owen MD - Neurological Care Team Information Manager Technical Sales [phone] Surgery Alyse Potter MD - Internal Care Team Information Manager Technical Sales [phone] Medicine Berto Wolfe MD - Gastroenterology Care Team Information Manager Technical Sales Shefali Vora MD - Internal Medicine Care Team Information Manager Technical Sales Problems Active Problems Provider Date Low back pain Aydee Johnson MD Onset: 12/06/2009 Diverticulitis of colon Aydee Johnson MD Onset: 12/06/2009 Gastroesophageal reflux disease Aydee Johnson MD Onset: 12/06/2009 Type II diabetes mellitus uncontrolled Aydee Johnson MD Onset: 2009 Tobacco user Alberto Herrera M.D. Onset: 12/06/2009 Hyperlipidemia Alberto Herrera M.D. Onset: 12/06/2009 Coronary arteriosclerosis Alberto Herrera M.D. Onset: 12/06/2009 Note: cath 2009, stents X3 Ischemic stroke Linwood Hicks M.D.,FACP Onset: 05/15/2016 Note: right internal capsule History of cerebrovascular accident without Aristeo Jewell M.D. Onset: 01/2017 residual deficits Neuropathy due to type 2 diabetes mellitus Aristeo Jewell M.D. Onset: 01/2017 Social History Type Date Description Comments Sex Unknown Tobacco Use Start: Unknown Current Cigarette Smoker 1 Pack Daily ETOH Use 07/05/2017 Never used alcohol Tobacco Use Start: Unknown Patient is a current smoker, smokes every day Smoking Status Reviewed: 02/12/19 Patient is a current smoker, smokes every day Allergies, Adverse Reactions, Alerts Active Allergies Reaction Severity Comments Date steroids 03/15/2009 Statins 03/15/2009 Atenolol anything in that family 03/15/2009 Zithromax 03/15/2009 Glipizide rash 11/17/2012 Ibuprofen says she can not take 11/17/2012 Mold 06/11/2013 Flagyl 09/16/2013 Plavix hallucinations Severe 03/10/2014 Lisinopril angioedema lips 04/20/2016 Medications Active Medications SIG Qnty Indications Ordering Date Provider Levofloxacin once daily 30tabs Shefali Vora MD 02/05/2019 500mg Tablets Onetouch Ultra Blue test up to three 200units E11.40 Linwood Garcia 2017 times daily as Juan Hicks,FACP Strips directed Wrist Brace/Suede as needed 1units Alyse Potter, 04/07/2013 Finish/Left/Medium Juan Misc Metformin HCL 1 by mouth 3x a 90tabs Shefali Vora MD 500mg day Tablets History Medications Doxycycline Hyclate Every 12 Hours 14caps Unknown 02/05/2019 - 02/12/2019 100mg Capsules Medications Administered in Office Medication SIG Qnty Indications Ordering Provider Date B-12 Injection Linwood Hicks, 09/05/2016 Injection Juan,FACP B-12 Injection Nurse Visit A 07/02/2016 Injection Immunizations CPT Code Status Date Vaccine Reaction Lot # [id number] Given 02/12/2019 Influenza Virus Vaccine, No immediate reaction [id number] Quadrivalent ([id number]), Derived From Cell 33017 Given 01/10/2016 Pneumonia Vaccine no reaction noted ... [id number] Given 01/10/2016 Influ Virus Vaccine, [id number] Quadrivalent, Split Virus, [place] [address] Given 01/29/2014 Flu Vaccine Split Virus [id number] Preservative Free For Indiv 3Yr Older 58786 Given 07/15/2013 Pneumococcal Conjugate [id number] Vaccine 13 Valent For Intramuscular Use 59665 Given 12/24/2012 Flu Vaccine Split Virus [id number] Preservative Free For Indiv 3Yr Older 24610 Given 03/25/2008 Pneumonia Vaccine in hospital Vital Signs Date Vital Result Comment 02/12/2019 3:10pm Height 60 inches 5'0" Heart Rate 86 /min BP Systolic Sitting 130 mmHg BP Diastolic Sitting 83 mmHg Body Temperature 98.5 F O2 % BldC Oximetry 91 % 07/05/2017 2:09pm Weight 125.00 lb Heart Rate 89 /min BP Systolic Sitting 130 mmHg BP Diastolic Sitting 64 mmHg Body Temperature 96.5 F O2 % BldC Oximetry 90 % Results Description No Information Available Procedures Date Code Description Status 05/29/2016 82178661 Mammogram Completed 07/23/2012 511110761 Diabetic Retinal Eye Exam Completed 09/23/2011 02917416 Mammogram Completed 03/25/2011 745570905 Diabetic Retinal Eye Exam Completed 06/23/2010 60895593 Colonoscopy Completed 04/18/2009 818349518 Bone Mineral Density Test Completed 04/18/2009 16508424 Mammogram Completed Medical Devices Description No Information Available Encounters Description No Information Available Assessments Date Code Description Provider 02/12/2019 M86.9 Osteomyelitis, unspecified Shefali Vora MD 02/12/2019 E11.40 Type 2 diabetes mellitus with diabetic neuropathy, Shefali Vora MD unspecified 02/12/2019 F17.200 Nicotine dependence, unspecified, uncomplicated Shefali Vora MD Plan of Treatment Future Appointment(s):02/27/2019 2:40 pm - [facility] - Shefali Vora MDM86.9 Osteomyelitis, unspecifiedComments:Continue antibioticReferral:Angel Mae MD, Infectious UeklokhgK82.40 Type 2 diabetes mellitus with diabetic neuropathy, unspecifiedComments:I have refilled metforminWe will discuss further after your ID [id number] Nicotine dependence, unspecified, uncomplicated Functional Status Description No Information Available Mental Status Description No Information Available Referrals Refer to Dr Reason for Referral Status Appt Date Angel Mae MD Created [address] [place] [id number] [phone]
--- OUTSIDE RECORDS SUMMARY | 2019-02-24 14:55 | XMS REPORT | Continuity of Care Document ---
:1945 External Reference #:[id number] Author Name Angel Mae M.D. (transmitted by agent of provider Kay Marin ) Address [address] [place] [id number] Care Team Providers Name Role Phone Jemma Strong MD - Care Team Information Business Continuity Strategy Director Endocrinology, Diabetes & Metabolism Solomon Orellana MD - Care Team Information Business Continuity Strategy Director [phone] Endocrinology, Diabetes & Metabolism Jaspal Owen MD - Neurological Care Team Information Business Continuity Strategy Director [phone] Surgery Alyse Potter MD - Internal Care Team Information Business Continuity Strategy Director Medicine Berto Wolfe MD - Gastroenterology Care Team Information Business Continuity Strategy Director [phone] Shefali Vora MD - Internal Medicine Care Team Information Business Continuity Strategy Director Problems Active Problems Provider Date Low back [...] smoker, smokes every day Smoking Status Reviewed: 02/16/19 Patient is a current smoker, smokes every [...] as needed 1units Alyse Potter, 04/07/2013 Finish/Left/Medium MMichael Misc Metformin HCL 1 by mouth 3x a 90tabs Shefali Vora MD 500mg day Tablets History Medications Doxycycline Hyclate Every 12 Hours 14caps Unknown 02/05/2019 - 02/12/2019 100mg Capsules Medications Administered in Office Medication SIG Qnty Indications Ordering Provider Date B-12 Injection Linwood Hicks, 09/05/2016 Injection Juan,FACP B-12 Injection Nurse Visit A 07/02/2016 Injection Immunizations CPT Code Status Date Vaccine Reaction Lot # [id number] Given 02/12/2019 Influenza Virus Vaccine, No immediate reaction [id number] Quadrivalent ([id number]), Derived From Cell 20710 Given 01/10/2016 Pneumonia Vaccine no reaction noted ... [id number] 56229 Given 01/10/2016 Influ Virus Vaccine, [id number] Quadrivalent, Split Virus, [place] [address] Given 01/29/2014 Flu Vaccine Split Virus [id number] Preservative Free For Indiv 3Yr Older 80262 Given 07/15/2013 Pneumococcal Conjugate [id number] Vaccine 13 Valent For Intramuscular Use 19190 Given 12/24/2012 Flu Vaccine Split Virus [id number] Preservative Free For Indiv 3Yr Older 89376 Given 03/25/2008 Pneumonia Vaccine in hospital Vital Signs Date Vital Result Comment 02/16/2019 1:49pm Height 60 inches 5'0" Weight 110.00 lb per pt Heart Rate 84 /min BP Systolic Sitting 138 mmHg BP Diastolic Sitting 70 mmHg Respiratory Rate 14 /min Body Temperature 97.3 F BMI (Body Mass Index) 21.5 kg/m2 02/12/2019 3:10pm Height 60 inches 5'0" Heart Rate 86 /min BP Systolic Sitting 130 mmHg BP Diastolic Sitting 83 mmHg Body Temperature 98.5 F O2 % BldC Oximetry 91 % Results Description No Information Available Procedures Date Code Description Status 05/29/2016 [id number] Mammogram Completed 07/23/2012 456972938 Diabetic Retinal Eye Exam Completed 09/23/2011 84522174 Mammogram Completed 03/25/2011 886332672 Diabetic Retinal Eye Exam Completed 06/23/2010 66979301 Colonoscopy Completed 04/18/2009 989068643 Bone Mineral Density Test Completed 04/18/2009 25703206 Mammogram Completed Medical Devices Description No Information Available Encounters Description No Information Available Assessments Date Code Description Provider 02/16/2019 M86.671 Other chronic osteomyelitis, right ankle Angel Mae M.D. and foot 02/16/2019 E11.621 Type 2 diabetes mellitus with foot ulcer Angel Mae M.D. 02/12/2019 M86.9 Osteomyelitis, unspecified Shefali Vora MD 02/12/2019 E11.40 Type 2 diabetes mellitus with diabetic Shefali Vora MD neuropathy, unspecified 02/12/2019 F17.200 Nicotine dependence, unspecified, Shefali Vora MD uncomplicated 02/12/2019 Z23 Encounter for immunization Shefali Vora MD 02/12/2019 R41.81 Age-related cognitive decline Shefali Vora MD Plan of Treatment Future Appointment(s):03/09/2019 3:20 pm - Angel Mae M.D. at [facility] For Infectious Dzaunjzs55/06/2019 2:40 pm - Shefali Vora MD at [facility] Internal Medicine - [facility]02/16/2019 - Angel Mae M.D.M86.671 Other chronic osteomyelitis, right ankle and footComments:continue levaquin, her daughter will monitor for side effects which we discussedFollow up:3 fzjrcT04.621 Type 2 diabetes mellitus with foot ulcerNew Xrays:VL Ank/Brachial Indices, Ordered: 02/16/19Comments:Underlying issue I think is blood flow, will start with chandler and vascular surgery evaluationReferral:Carien Arevalo MD, Surgery,General Vascular Functional Status Description No Information Available Mental Status Description No Information Available Referrals Refer to Dr Reason for Referral Status Appt Date Carine Arevalo MD 73 year old smoker, diabetic woman right great Created toe ulcer, decreased pulses right foot [address] [place], [place] [id number] [phone] Angel Mae MD Sent 02/16/2019 [address] [place] [address] [phone]
--- NOTE | 2019-02-24 16:46 | PN ---
Subjective Date of Service: 02/24/19 Interval History: Patient states RT toe is painful. This is being looked at by wound care nurse. Denies chest pain, SOB., Overnight patient was agitated, took off O2, was desaturating, combative Family History: Unchanged from Admission Social History: Unchanged from Admission Past Medical History: Unchanged from Admission Objective Active Medications: Acetaminophen (Tylenol Tab*) 650 mg PO Q4H PRN PRN Reason: FEVER/PAIN Last Admin: 02/22/19 19:45 Dose: 650 mg Amlodipine Besylate (Norvasc Tab*) 10 mg PO DAILY [facility] Last Admin: 02/24/19 08:49 Dose: 10 mg Cyanocobalamin (Vitamin B12 Tab*) 500 mcg PO DAILY [facility] Last Admin: 02/24/19 08:51 Dose: 500 mcg Dextrose (Dextrose 50% Vial 50 Ml*) 25 ml IV PUSH .FOR FS < 60 - SS PRN PRN Reason: FS < 60 Haloperidol Lactate (Haldol Inj Iv/Im*) 5 mg IM Q6H PRN PRN Reason: AGITATION Last Admin: 02/23/19 21:04 Dose: 5 mg Heparin Sodium (Porcine) (Heparin Vial(*)) 5,000 units SUBCUT Q12HR [facility] Last Admin: 02/24/19 08:49 Dose: 5,000 units Insulin Glargine (Lantus(*)) 10 units SUBCUT Q24H [facility] Insulin Human Lispro (Humalog*) 0 units SUBCUT ACHS [facility]; Protocol Last Admin: 02/24/19 12:20 Dose: 4 units Levofloxacin (Levaquin Tab*) 500 mg PO Q24H [facility]; Protocol Last Admin: 02/24/19 12:19 Dose: 500 mg Morphine Sulfate (Morphine Inj (Syringe))*) 2 mg IV Q2H PRN PRN Reason: PAIN - SEVERE Last Admin: 02/24/19 08:53 Dose: 2 mg Nicotine (Nicotine Patch 14 Mg/24 Hr*) 1 patch TRANSDERM DAILY [facility] Last Admin: 02/24/19 08:48 Dose: Not Given Nicotine Polacrilex (Nicotine Gum*) 2 mg PO Q2H PRN PRN Reason: CRAVING Last Admin: 02/23/19 21:04 Dose: 2 mg Oxycodone/Acetaminophen (Percocet 5/325 Tab*) 1 tab PO Q4H PRN PRN Reason: PAIN - MODERATE Last Admin: 02/23/19 23:41 Dose: 1 tab Potassium Chloride (Klor Con Er Tab*) 10 meq PO BID [facility] Last Admin: 02/24/19 08:50 Dose: 10 meq Vital Signs - 8 hr 02/24/19 02/24/19 02/24/19 08:53 10:38 11:15 Temperature 36.9 C Pulse Rate 88 Respiratory 22 20 16 Rate Blood Pressure 135/49 (mmHg) O2 Sat by Pulse 95 Oximetry 02/24/19 15:15 Temperature 37.1 C Pulse Rate 90 Respiratory 20 Rate Blood Pressure 136/64 (mmHg) O2 Sat by Pulse 94 Oximetry Oxygen Devices in Use Now: Nasal Cannula Appearance: alert, calm Ears/Nose/Mouth/Throat: Clear Oropharnyx Neck: NL Appearance and Movements; NL JVP Respiratory: Symmetrical Chest Expansion and Respiratory Effort, Clear to Auscultation Cardiovascular: NL Sounds; No Murmurs; No JVD, RRR Skin: - - 2x2 cm wound RT great toe, smaller wound 4th toe, absent DP pulses, trace PT pulse RT Neurological: - - no insight into condition Lines/Tubes/Other Access: Clean, Dry and Intact Peripheral IV Nutrition: Taking PO's - Nutrition: Malnutrition Diagnosis/Plan Malnutrition Assessment by Registered Dietitian: Malnutrition Assessment Clinical Characteristics Chronic,Severe Malnutrition Assessment: Muscle Wasting - Temporal (severe) Criteria Inadequate Oral Intake - Pt noted w/ variable intake; consumed 0-90% all meals since adm - Anticipate meeting <75% nutrient needs >1 mo given wt changes (severe) Unintentional Weight Loss - Pt noted w/ wt loss per records; current wt 100lb, prev wt 120lb (2018) - 16.7% loss x9 mos (severe) Malnutrition Assessment: Nutritional Supplementals/Nourishments - Will Interventions trial Glucerna (220kcal, 10g prot/serv) at HS snack daily to optimize kcal/prot intake; will monitor acceptance Glycemic Control - Agree w/ consistent carb diet ; will continue to monitor BG/FS in the setting of T2DM Education - Pt inappropriate for nutrition education at this time; will f/u to provide nutrition education as appropriate and/or w/ family present Malnutrition Assessment: Goals 1) Adequate po intake to replete lean body mass and support hydration status 2) Maintain fluid/electrolyte balance w/ adequate po intake 3) Improve glycemic control w/ adequate po and consistent carb intake in the setting of T2DM 4) Maintain bowel regularity w/ adequate po intake w/o development of diarrhea/constipation 5) Questions regarding diet will be answered prior to d/c Result Diagrams: 02/23/19 03:57 02/23/19 03:57 Additional Lab and Data: Laboratory Tests 02/23/19 02/23/19 02/23/19 11:49 17:13 19:25 POC Glucose (mg/dL) 271 H 211 H 391 H 02/24/19 02/24/19 07:36 11:42 POC Glucose (mg/dL) 218 H 240 H Assess/Plan/Problems-Billing Assessment: 73 year old woman with type 2 DM, RT great toe osteomyelitis, admitted with DKA and lactic acidosis. - Patient Problems (1) DKA (diabetic ketoacidoses) Current Visit: Yes Status: Acute Priority: High Code(s): E11.10 - TYPE 2 DIABETES MELLITUS WITH KETOACIDOSIS WITHOUT COMA SNOMED Code(s): 635493317 Comment: -Was on insulin drip, iv fluids in the icu initially, though mild -Also had lactic acidosis, presumable due to Metformin, started 2 weeks [employer] -Started Lantus yesterday, increased today as sugars remain >200 (2) Hypertension Current Visit: Yes Status: Acute Priority: Medium Code(s): I10 - ESSENTIAL (PRIMARY) HYPERTENSION SNOMED Code(s): 36526153 Comment: -BP improved on norvasc -doubt allergy to lisinopril, patient has reported "allergies" to almost every drug she has tried (3) Tobacco abuse Current Visit: No Status: Acute Priority: Medium Code(s): Z72.0 - TOBACCO USE SNOMED Code(s): 459228805 Comment: - nicotine replacement - smoking cessation (4) DVT prophylaxis Current Visit: No Status: Acute Priority: Low Code(s): LTK3666 - SNOMED Code(s): 973871224 Comment: -SCDs (5) Osteomyelitis Current Visit: Yes Status: Acute Priority: Medium Code(s): M86.9 - OSTEOMYELITIS, UNSPECIFIED SNOMED Code(s): 63717121 Comment: -Continue levaquin at renal dose -Checking ABIs (6) Impaired decision making Current Visit: Yes Status: Acute Priority: Medium Code(s): Z78.9 - OTHER SPECIFIED HEALTH STATUS SNOMED Code(s): 279202948 Comment: -Daughter Anna is health care proxy, she would now prefer STR. (7) Hypokalemia Current Visit: Yes Status: Acute Priority: Medium Code(s): E87.6 - HYPOKALEMIA SNOMED Code(s): 68227812 Comment: -oral supplementation started -Recheck in AM (8) Severe malnutrition due to type 2 diabetes mellitus Current Visit: Yes Status: Acute Priority: Medium Code(s): E11.69 - TYPE 2 DIABETES MELLITUS WITH OTHER SPECIFIED COMPLICATION; E43 - UNSPECIFIED SEVERE PROTEIN-CALORIE MALNUTRITION SNOMED Code(s): 25187765111917 Comment: -Taking adequate nutrition now -Use of insulin will facilitate uptake of calories Status and Disposition: inpatient, STR tomorrow
[2019-02-24] MEDS: Donepezil TAB* 5 MG PO SCH (17:54)
[2019-02-24] MEDS: oxyCODONE/Acetamin 5/325 MG* TAB PO PRN (17:54)
--- NOTE | 2019-02-24 18:44 | CONSULT ---
Subjective Date of Service: 02/24/19 Interval History: Ms. Georges is a 73 yo female with PMH significant for HTN, DM2, CAD, hx CVA, COPD , osteomyelitis of the right 1st toe, GERD, Ovarian cyst, and chronic back pain ; who presented to the emergency room with complaints of generalized weakness and falls. She was admitted to the hospital for DKA, osteomyelitis, metabolic acidosis, lactic acidosis, hyponatremia, and JESSICA. She presented to the hospital with a "raised right 1st toe nail", and black necrotic area on the right toe. Patient seen and examined at bedside. Family History: Unchanged from Admission Social History: Unchanged from Admission Past Medical History: Unchanged from Admission Review of Systems - Measurements Intake and Output: Intake and Output Last 24 Hours 02/22/19 02/23/19 02/24/19 02/25/19 06:59 06:59 06:59 06:59 Intake Total 910 1060 1320 900 Output Total 7721 541 9778 400 Balance -315 310 220 500 Intake: Oral 910 1060 1320 900 Output: Urine 4341 600 2276 400 Other: Estimated Void Medium Small Small # Bowel Movements 1 1 Estimated Stool Amount Small Medium # Voids 2 1 3 - Review of Systems Constitutional Symptoms: Negative: Fever, Other - Chills Dermatology: Positive: Other - Black area to right foot Endocrinology: Positive: Diabetes Mellitus Objective Active Medications: Acetaminophen (Tylenol Tab*) 650 mg PO Q4H PRN Reason: FEVER/PAIN Amlodipine Besylate (Norvasc Tab*) 10 mg PO DAILY [facility] Cyanocobalamin (Vitamin B12 Tab*) 500 mcg PO DAILY [facility] Dextrose (Dextrose 50% Vial 50 Ml*) 25 ml IV PUSH PRN Reason: FS < 60 Donepezil HCl (Aricept Tab*) 5 mg PO DAILY [facility] Haloperidol Lactate (Haldol Inj Iv/Im*) 5 mg IM Q6H PRN Reason: AGITATION Heparin Sodium (Porcine) (Heparin Vial(*)) 5,000 units SUBCUT Q12HR [facility] Insulin Glargine (Lantus(*)) 20 units SUBCUT Q24H [facility] Insulin Human Lispro (Humalog*) 0 units SUBCUT ACHS [facility]; Protocol Levofloxacin (Levaquin Tab*) 500 mg PO Q24H [facility]; Protocol Morphine Sulfate (Morphine Inj (Syringe))*) 2 mg IV Q2H PRN Reason: PAIN - SEVERE Nicotine (Nicotine Patch 14 Mg/24 Hr*) 1 patch TRANSDERM DAILY [facility] Nicotine Polacrilex (Nicotine Gum*) 2 mg PO Q2H PRN Reason: CRAVING Oxycodone/Acetaminophen (Percocet 5/325 Tab*) 1 tab PO Q4H PRN Reason: PAIN - MODERATE Pharmacy Profile Note (Nicotine Patch Removal Note*) 1 note PATCH OFF 2100 [facility] Potassium Chloride (Klor Con Er Tab*) 10 meq PO BID [facility] Vital Signs - 8 hr 02/24/19 02/24/19 02/24/19 11:15 15:15 17:54 Temperature 98.5 F 98.7 F Pulse Rate 88 90 Respiratory 16 20 20 Rate Blood Pressure 135/49 136/64 (mmHg) O2 Sat by Pulse 95 94 Oximetry Oxygen Devices in Use Now: Nasal Cannula Appearance: NAD, laying in bed Ears/Nose/Mouth/Throat: Mucous Membranes Moist Respiratory: Symmetrical Chest Expansion and Respiratory Effort Extremities: No Edema, - - Unable to palpate DP pulse Skin: - - See skin note below Neurological: Alert and Oriented x 3 Nutrition: Taking PO's - Nutrition: Malnutrition Diagnosis/Plan Malnutrition Assessment by Registered Dietitian: Malnutrition Assessment Clinical Characteristics Chronic,Severe Malnutrition Assessment: Muscle Wasting - Temporal (severe) Criteria Inadequate Oral Intake - Pt noted w/ variable intake; consumed 0-90% all meals since adm - Anticipate meeting <75% nutrient needs >1 mo given wt changes (severe) Unintentional Weight Loss - Pt noted w/ wt loss per records; current wt 100lb, prev wt 120lb (2018) - 16.7% loss x9 mos (severe) Malnutrition Assessment: Nutritional Supplementals/Nourishments - Will Interventions trial Glucerna (220kcal, 10g prot/serv) at HS snack daily to optimize kcal/prot intake; will monitor acceptance Glycemic Control - Agree w/ consistent carb diet ; will continue to monitor BG/FS in the setting of T2DM Education - Pt inappropriate for nutrition education at this time; will f/u to provide nutrition education as appropriate and/or w/ family present Malnutrition Assessment: Goals 1) Adequate po intake to replete lean body mass and support hydration status 2) Maintain fluid/electrolyte balance w/ adequate po intake 3) Improve glycemic control w/ adequate po and consistent carb intake in the setting of T2DM 4) Maintain bowel regularity w/ adequate po intake w/o development of diarrhea/constipation 5) Questions regarding diet will be answered prior to d/c Result Diagrams: 02/23/19 03:57 02/25/19 04:38 Additional Lab and Data: Above labs were pulled into the note, when the note was edited prior to signing. Please see below for labs from day of consultation. Laboratory Tests 02/20/19 02/23/19 02/23/19 12:55 03:57 03:57 WBC 7.5 Hgb 12.7 Hct 38 Plt Count 202 Sodium 138 Potassium 3.4 L Chloride 101 Carbon Dioxide 30 BUN 15 Creatinine 0.55 Glucose 262 H Hemoglobin A1c C-Reactive Protein 4.08 Total Protein 7.2 Albumin 4.3 02/23/19 03:57 WBC Hgb Hct Plt Count Sodium Potassium Chloride Carbon Dioxide BUN Creatinine Glucose Hemoglobin A1c 16.0 H C-Reactive Protein Total Protein Albumin Skin Deviation Note - Skin Deviation Findings Right foot - The right 1st toe nail is avulsed, this measures 2 cm x 2.5 cm x 0.1 cm. The nail bed is dry necrotic tissue. The surrounding skin is intact. There is no drainage. The 4th toe has an area that is dark purplish in discoloration, this measures 0.8 cm x 0.8 cm. The surrounding skin is intact, and there is no drainage. The 5th toe has an area that is dark purplish/dark erythema in discoloration, the surrounding skin is intact. There is no drainage. The foot with slight erythema to the dorsal aspect. Wound Problem/Plan Assessment: Ms. Georges is a 73 yo female with PMH significant for HTN, DM2, CAD, hx CVA, COPD , osteomyelitis of the right 1st toe, GERD, Ovarian cyst, and chronic back pain ; who presented to the emergency room with complaints of generalized weakness and falls. She was admitted to the hospital for DKA, osteomyelitis, metabolic acidosis, lactic acidosis, hyponatremia, and JESSICA. She presented to the hospital with a "raised right 1st toe nail", and black necrotic area on the right toe. 1. Right foot with ecchymosis to the 4th and 5th toes, and missing toe nail to the 1st toe. There is evidence of arterial arterial disease in the right foot, there may also be a component of a diabetic wound on the 1st toe and trauma to the 4th and 5th toes. She is also curretnly being treated for right 1st toe osteomyelitis outpatient and has been on oral Levaquin. No imaging has been done [place] [facility] but she did have a foot xray completed to [facility], showing evidence of Osteomyelitis. She was referred to vascular surgery by ID outpatient. Recommend obtaining ABIs to evaluate vascular status, no pulse is palpable in this foot. Apply rolled gauze to the foot for protection. 2. DM2. HgA1C was 16.2 on 02/23/19. Maintain glycemic control to allow for wound healing. 3. Severe Chronic malnutrition. As evidenced by temporal muscle wasting, inadequate oral intake, unintentional weight loss. Dietary following and Pt receiving dietary supplements. 4. Diet. Consistent Carbohydrate diet. 5. Code Status. Full Code Status. 6. Disposition. Inpatient, disposition per primary medicine team. TIME SPENT: Time for this wound consultation was 20 minutes and 10 minutes was spent with the patient discussing past medical history; assessing, measuring, and photographing the wounds. Is Patient a Wound Clinic Patient: No Attending: Cynthia Mejia
[2019-02-24] MEDS ORDERED: Insulin GLARGINE(*) 1 UNITS UNIT SUBCUT SCH (20:00)
[2019-02-24] MEDS: Nicotine Patch Removal NOTE PATCH OFF SCH (22:02)
[2019-02-25] MEDS: oxyCODONE/Acetamin 5/325 MG* TAB PO PRN ×2 (03:09→09:56)
[2019-02-25 05:20] LABS: BUN/Creatinine Ratio 45.5 (8-20); Calcium 8.8 mg/dL (8.6-10.3); EGFR African American 169.6 (>60); EGFR Non-African American 140.2 (>60); Magnesium 1.3 mg/dL (1.9-2.7); Potassium 3.4 mmol/L (3.5-5.0)
[2019-02-25] MEDS: Insulin LISPRO* 1 UNITS UNIT SUBCUT SCH (09:38)
[2019-02-25] MEDS: Donepezil TAB* 5 MG PO SCH (09:46)
[2019-02-25] MEDS: Potassium Chlor TAB* 10 MEQ TAB.ER PO SCH (09:46)
[2019-02-25] MEDS: amLODIPine TAB* 5 MG PO SCH (09:46)
[2019-02-25] MEDS: Cyanocobalamin TAB* 500 MCG PO SCH (09:47)
[2019-02-25] MEDS: Heparin VIAL(*) 5000 UNITS/ML VIAL (FIVE THOUSAND) SUBCUT SCH (09:47)
[2019-02-25] MEDS: Nicotine PATCH 14 MG/24 HR* PATCH TRANSDERM SCH (09:49)
[2019-02-25] MEDS ORDERED: Magnesium Oxide TAB* 400 MG PO SCH (10:00)
--- NOTE | 2019-02-25 10:58 | TRS ---
DATE OF ADMISSION: 02/20/2019. DATE OF TRANSFER: 02/25/2019. PRIMARY DIAGNOSIS: Diabetic ketoacidosis. SECONDARY DIAGNOSES: Mixed metabolic acidosis with lactic acidosis due to Metformin initiation, type 2 diabetes, hypertension, coronary artery disease, peripheral vascular disease, history of stroke, probable COPD, osteomyelitis right great toe, GERD, ovarian cyst, chronic back pain, hypomagnesemia, hypokalemia. MEDICATIONS ON TRANSFER: 1. Cyanocobalamin 500 mcg p.o. daily. 2. Multivitamin one tab p.o. daily. 3. Acetaminophen 650 mg p.o. q.4 hours prn mild pain or fever. 4. Amlodipine 10 mg p.o. daily. 5. Donepezil 5 mg p.o. q.p.m. 6. Insulin Glargine 20 units subcutaneous q.p.m. 7. Levofloxacin 500 mg p.o. daily for a minimum of 4 weeks to be determined by Infectious Disease. 8. Magnesium Oxide 400 mg p.o. b.i.d. 9. Nicotine gum 2 mg q.2 hours prn cravings. 10. Nicotine patch 14 mg topically q.24 hours. 11. Oxycodone/acetaminophen 5/325 one tab p.o. q.4 hours prn pain. 12. Potassium Chloride 10 mEq p.o. b.i.d. CONSULTATIONS: Dr. Brasher of Psychiatry and Cheryl Cooper of Wound Care. PROCEDURES: None. COMPLICATIONS: None. HOSPITAL COURSE: This is a 73-year-old woman who presented to the emergency department with falls and confusion. She has a long history of noncompliance with diabetic and other medications and is developing some memory loss. She was found to have an initial venous blood gas of 7.26 with a PCO2 of 57 and a bicarbonate of 21. Her initial carbon dioxide level on her BMP was 22. Her urine ketones were positive. She was admitted to the ICU with a diagnosis of DKA and placed on an insulin drip. She also had a lactic acid elevation at 2.9 which went down to 2.0 with fluids and treatment of her DKA. The patient did well with the insulin drip and then was switched over to basal bolus insulin. Interestingly she had been started on Metformin orally two weeks prior to admission according to her daughter and she may develop lactic acidosis from that medication. The patient's blood sugar is 113 on the morning of discharge after titration of the Lantus. The patient also had an avulsion of her right great toenail and injury to her right fourth toe some weeks prior to admission. She has known osteomyelitis of the right great toe with follow-up with Infectious Disease. Cheryl Ch performed a Wound consult and advised dressing changes every day and the patient needs follow-up with Infectious Disease two weeks after discharge. The patient had an arterial ankle brachial study. This showed SUSAN was normal on the left and 0.38 on the right consistent with severe peripheral artery disease in the ischemic range. Outpatient referral to vascular intervention would be indicated to help in the healing of this chronic osteomyelitis. The patient had a white count of 13.6 which fell to 7.5 after three days of treatment. She did not require IV antibiotics, but maintained her oral Levaquin during her hospital stay. Blood cultures were negative after four days of growth and MRSA screen was negative in nasal swab. The patient has hypokalemia with a potassium of 3.4 on the day of discharge and a magnesium of 1.3 on the day of discharge. She has been taking potassium supplements for two days and started magnesium today. The patient had a consultation with Dr. Brasher of Psychiatry regarding capacity. She did not have any insight into her illness and could not explain the risks of being at home alone. The patient's daughter is her healthcare proxy and decision was made to bring the patient to a shelter facility for acute rehab and management of medications. The patient does not have capacity to leave against medical advice from the hospital or from a shelter facility. DISPOSITION: To [facility] in [place]. ACTIVITY: Walk with walker and assistance. DIET: Diabetic. STATUS: Inpatient. CONDITION ON DISCHARGE: Improved. TIME SPENT: I spent more than 45 minutes with the patient and completing the necessary paperwork on the day of discharge. [id number]/CPS #: [id number] [facility]
[2019-02-25] MEDS: Haloperidol INJ IV/IM* 5 MG/ML AMP IM PRN (10:59)
[2019-02-25 12:58] VITALS: BP 127/44
== END 2019-02-25 12:20 | DRG 637 ==
LOC: ED 12:06 → ICU 14:25 → MEDTELE 02-21 09:42
PROVIDERS: ADMIT Internal Medicine; ATTEND Internal Medicine
DX: E11.10 Type 2 diabetes mellitus with ketoacidosis without coma (principal); E43 Unspecified severe protein-calorie malnutrition; E87.2 Acidosis; M86.671 Other chronic osteomyelitis, right ankle and foot; N17.9 Acute kidney failure, unspecified; E87.1 Hypo-osmolality and hyponatremia; Z68.1 Body mass index [BMI] 19.9 or less, adult; I10 Essential (primary) hypertension; I25.10 Atherosclerotic heart disease of native coronary artery without angina pectoris; E11.51 Type 2 diabetes mellitus with diabetic peripheral angiopathy without gangrene; J44.9 Chronic obstructive pulmonary disease, unspecified; K21.9 Gastro-esophageal reflux disease without esophagitis; G89.29 Other chronic pain; M54.9 Dorsalgia, unspecified; E83.42 Hypomagnesemia; E87.6 Hypokalemia; E11.69 Type 2 diabetes mellitus with other specified complication; T38.3X5A Adverse effect of insulin and oral hypoglycemic [antidiabetic] drugs, initial encounter; E86.0 Dehydration; F17.210 Nicotine dependence, cigarettes, uncomplicated; F03.90 Unspecified dementia, unspecified severity, without behavioral disturbance, psychotic disturbance, mood disturbance, and anxiety; R09.02 Hypoxemia; E11.621 Type 2 diabetes mellitus with foot ulcer; W01.0XXA Fall on same level from slipping, tripping and stumbling without subsequent striking against object, initial encounter; S80.02XA Contusion of left knee, initial encounter; S80.01XA Contusion of right knee, initial encounter; S50.02XA Contusion of left elbow, initial encounter; S50.01XA Contusion of right elbow, initial encounter; L97.519 Non-pressure chronic ulcer of other part of right foot with unspecified severity; Z86.73 Personal history of transient ischemic attack (TIA), and cerebral infarction without residual deficits; Z79.4 Long term (current) use of insulin; Z79.899 Other long term (current) drug therapy; Z91.14 Patient's other noncompliance with medication regimen; Y92.9 Unspecified place or not applicable; Z95.5 Presence of coronary angioplasty implant and graft; Z88.8 Allergy status to other drugs, medicaments and biological substances; Z88.6 Allergy status to analgesic agent; Z88.2 Allergy status to sulfonamides; Z88.7 Allergy status to serum and vaccine; Z98.49 Cataract extraction status, unspecified eye; Y92.009 Unspecified place in unspecified non-institutional (private) residence as the place of occurrence of the external cause
CPT/HCPCS: 36415; 71045; 80048; 80053; 81003; 81015; 82565; 82803; 82947; 83036; 83605; 83735; 84443; 84484; 84520; 85025; 85610; 85730; 86140; 87040; 87086; 87641; 93005; 93922; 96374; 99284; A9270-GY; G8978-GP-CJ; G8979-GP-CI; J1200; J1630; J1644; J1815; J2270; J2405; J3480

== ENCOUNTER 2020-01-04 18:12 | Inpatient (IN) ==
[2020-01-04] MEDS ORDERED: NS 0.9% 1000 ml BAG 1,000 ML IV.FLUID IV ONE (20:11)
[2020-01-04 20:13] LABS: ABS Basophils 0.1 10^3/ul (0-0.2); ABS Lymphocytes 0.9 10^3/ul (1.0-4.8); ABS Monocytes 0.9 10^3/ul (0-0.8); ABS Neutrophils 13.6 10^3/ul (1.5-7.7); Eosinophil % 0.1 %; Hematocrit 40 % (35-47); Hemoglobin 13.2 g/dL (12.0-16.0); Lymphocyte % 5.5 %; Mean Corpuscular HGB Conc 33 g/dL (31-36); Mean Corpuscular Hemoglobin 30 pg (27-31); Mean Corpuscular Volume 90 fL (80-97); Mean Platelet Volume 8.3 fL (7.4-10.4); Nucleated Red Blood Cells % 0.1; Platelet Count 184 10^3/uL (150-450); Red Blood Count 4.46 10^6 /uL (3.70-4.87); Red Cell Distribution Width 14 % (10-15); White Blood Count 15.4 10^3/uL (3.5-10.8)
[2020-01-04 20:22] LABS: Activated Partial Thrombo Time 28.9 seconds (26.0-38.0); INR 1.1 (0.82-1.09)
[2020-01-04 20:29] LABS: Albumin 4.1 g/dL (3.2-5.2); Albumin/Globulin Ratio 1.4 (1-3); BUN/Creatinine Ratio 25.6 (8-20); Calcium 9.2 mg/dL (8.6-10.3); EGFR African American 74.1 (>60); EGFR Non-African American 61.2 (>60); Globulin 2.9 g/dL (2-4); Potassium 4.6 mmol/L (3.5-5.0); Total Bilirubin 0.7 mg/dL (0.2-1.0)
[2020-01-04 20:30] LABS: Troponin I 0.01 ng/mL (<0.03)
[2020-01-04 22:15] LABS: Urine Appearance Clear; Urine Bilirubin Negative (Negative); Urine Blood Negative (Negative); Urine Color Yellow; Urine Glucose 1+(50 mg/dL) (Negative); Urine Ketones Trace (Negative); Urine Nitrite Negative (Negative); Urine Protein Negative (Negative); Urine Specific Gravity 1.023 (1.010-1.030); Urine Urobilinogen Negative (Negative)
[2020-01-04 22:28] LABS: Influenza A Molecular Negative (Negative); Influenza B Molecular Negative (Negative)
[2020-01-05] MEDS ORDERED: NS 0.9% 500 ml BAG 500 ML IV ONE (00:27)
[2020-01-05] MEDS ORDERED: NS 0.9% 1000 ml BAG 1,000 ML IV SCH (00:30)
[2020-01-05] MEDS ORDERED: Dextrose 50% Syringe 50 ml 25 GM/50 ML SYRINGE IV PUSH PRN (00:42)
[2020-01-05] MEDS ORDERED: cefTRIAXone 1 gm/50 mL NS BAG 1 GM/50 ML BAG IVPB SCH (03:00)
[2020-01-05 06:51] LABS: ABS Lymphocytes 1.3 10^3/ul (1.0-4.8); ABS Monocytes 1.3 10^3/ul (0-0.8); ABS Neutrophils 10.8 10^3/ul (1.5-7.7); Eosinophil % 0.1 %; Hematocrit 34 % (35-47); Hemoglobin 11.8 g/dL (12.0-16.0); Lymphocyte % 9.5 %; Mean Corpuscular HGB Conc 35 g/dL (31-36); Mean Corpuscular Hemoglobin 31 pg (27-31); Mean Corpuscular Volume 89 fL (80-97); Mean Platelet Volume 8.6 fL (7.4-10.4); Platelet Count 157 10^3/uL (150-450); Red Blood Count 3.79 10^6 /uL (3.70-4.87); Red Cell Distribution Width 15 % (10-15); White Blood Count 13.4 10^3/uL (3.5-10.8)
[2020-01-05 07:01] LABS: Albumin 3.6 g/dL (3.2-5.2); Albumin/Globulin Ratio 1.4 (1-3); BUN/Creatinine Ratio 27.6 (8-20); Calcium 8.3 mg/dL (8.6-10.3); EGFR Non-African American 74.4 (>60); Globulin 2.5 g/dL (2-4); Potassium 3.9 mmol/L (3.5-5.0); Total Bilirubin 0.7 mg/dL (0.2-1.0); Total Protein 6.1 g/dL (6.4-8.9)
[2020-01-05] MEDS: Insulin GLARGINE 100 un/ml 10 ml VIAL SUBCUT SCH (08:17)
[2020-01-05] MEDS ORDERED: Piperacillin/Tazobac ADVAN 3.375 GM in NS 0.9% 100 ml BAG 100 ML IV ONE (10:30)
[2020-01-05] MEDS ORDERED: Zosyn per Pharmacy NOTE FOLLOW UP SCH (11:00)
[2020-01-05] MEDS: CMCS:Pindolol 10 mg TAB (NF) PO SCH ×2 (12:20→20:32)
[2020-01-05] MEDS: Mometasone/Formoter 100/5 MDI INH SCH ×2 (20:06→20:07)
[2020-01-05] MEDS: ZOSYN 3.375 GM Q8H per EXTENDED INFUSION IV SCH (20:37)
[2020-01-06] MEDS ORDERED: Enoxaparin 40 MG/0.4 ML SYR SUBCUT SCH (01:00)
[2020-01-06] MEDS: ZOSYN 3.375 GM Q8H per EXTENDED INFUSION IV SCH ×3 (04:57→23:33)
[2020-01-06] MEDS: Mometasone/Formoter 100/5 MDI INH SCH (07:34)
[2020-01-06 08:50] LABS: Hematocrit 32 % (35-47); Mean Corpuscular HGB Conc 34 g/dL (31-36); Mean Corpuscular Hemoglobin 30 pg (27-31); Mean Corpuscular Volume 89 fL (80-97); Mean Platelet Volume 8.2 fL (7.4-10.4); Platelet Count 158 10^3/uL (150-450); Red Blood Count 3.63 10^6 /uL (3.70-4.87); Red Cell Distribution Width 15 % (10-15); White Blood Count 9.5 10^3/uL (3.5-10.8)
[2020-01-06 09:08] LABS: BUN/Creatinine Ratio 21.3 (8-20); Calcium 8.5 mg/dL (8.6-10.3); EGFR African American 84.8 (>60); EGFR Non-African American 70.1 (>60); Potassium 3.6 mmol/L (3.5-5.0)
[2020-01-06 09:18] LABS: C Reactive Protein 170.88 mg/L (<8.01)
[2020-01-06] MEDS: Insulin GLARGINE 100 un/ml 10 ml VIAL SUBCUT SCH (10:37)
[2020-01-06] MEDS: CMCS:Pindolol 10 mg TAB (NF) PO SCH ×2 (10:48→21:30)
[2020-01-06] MEDS ORDERED: Iodixanol (CONTRAST) 320 MG/ML 100 ML SDV IV ONE ×2 (12:08→13:21)
[2020-01-06] MEDS: Mometasone/Formoter 200/5 MDI INH SCH (21:28)
[2020-01-07] MEDS: ZOSYN 3.375 GM Q8H per EXTENDED INFUSION IV SCH ×3 (05:19→22:16)
[2020-01-07] MEDS: Mometasone/Formoter 200/5 MDI INH SCH ×2 (08:18→20:04)
[2020-01-07 10:03] LABS: BUN/Creatinine Ratio 20.3 (8-20); EGFR Non-African American 71.1 (>60); Potassium 3.4 mmol/L (3.5-5.0)
[2020-01-07 10:04] LABS: C Reactive Protein 138.08 mg/L (<8.01); Calcium 8.7 mg/dL (8.6-10.3); EGFR African American 86.1 (>60)
[2020-01-07] MEDS: Insulin GLARGINE 100 un/ml 10 ml VIAL SUBCUT SCH (10:08)
[2020-01-07] MEDS: CMCS:Pindolol 10 mg TAB (NF) PO SCH ×2 (10:10→22:16)
[2020-01-07] MEDS: Enoxaparin 40 MG/0.4 ML SYR SUBCUT SCH (10:10)
[2020-01-07] MEDS ORDERED: Potassium Chlor 20 meq TAB.ER PO ONE (21:06)
[2020-01-08] MEDS: ZOSYN 3.375 GM Q8H per EXTENDED INFUSION IV SCH ×3 (04:30→21:19)
[2020-01-08 06:45] LABS: ABS Eosinophils 0.2 10^3/ul (0-0.6); ABS Lymphocytes 0.8 10^3/ul (1.0-4.8); ABS Monocytes 0.9 10^3/ul (0-0.8); ABS Neutrophils 5.5 10^3/ul (1.5-7.7); Eosinophil % 2.7 %; Hematocrit 31 % (35-47); Hemoglobin 10.6 g/dL (12.0-16.0); Lymphocyte % 10.9 %; Mean Corpuscular HGB Conc 34 g/dL (31-36); Mean Corpuscular Hemoglobin 31 pg (27-31); Mean Corpuscular Volume 90 fL (80-97); Platelet Count 186 10^3/uL (150-450); Red Blood Count 3.44 10^6 /uL (3.70-4.87); Red Cell Distribution Width 14 % (10-15); White Blood Count 7.5 10^3/uL (3.5-10.8)
[2020-01-08 07:11] LABS: BUN/Creatinine Ratio 20.9 (8-20); Calcium 8.6 mg/dL (8.6-10.3); EGFR African American 104.1 (>60); Magnesium 1.8 mg/dL (1.9-2.7); Potassium 3.7 mmol/L (3.5-5.0)
[2020-01-08 07:16] LABS: INR 1.12 (0.82-1.09)
[2020-01-08] MEDS: Mometasone/Formoter 200/5 MDI INH SCH ×2 (07:37→19:51)
[2020-01-08] MEDS: Insulin GLARGINE 100 un/ml 10 ml VIAL SUBCUT SCH (08:36)
[2020-01-08] MEDS: CMCS:Pindolol 10 mg TAB (NF) PO SCH ×2 (08:38→21:19)
[2020-01-08] MEDS ORDERED: Magnesium Sulfate 2 gm BAG 2 GM/50 ML BAG IVPB ONE (08:40)
[2020-01-08] MEDS ORDERED: Lorazepam PYXIS KEY PRN (09:52)
[2020-01-08] MEDS ORDERED: LORazepam 2 mg VIAL 1 ml IM ONE (09:52)
[2020-01-08] MEDS ORDERED: Heparin 1,000 UNIT/ML 10 ml (10,000 UNITS) CATHLAB/DIALYSIS ONE (13:45)
[2020-01-08] MEDS ORDERED: fentaNYL 100 mcg/2 ml 50 MCG/ML VIAL ONE ×2 (13:45→13:54)
[2020-01-08] MEDS ORDERED: Midazolam 5 mg/5 ml VIAL 1 mg/ml 5 ml VIAL (5 mg) ONE (13:45)
[2020-01-08] MEDS ORDERED: Iodixanol 320 (CONTRAST) 100 ML SDV ONE (13:49)
[2020-01-08] MEDS ORDERED: Heparin 2 UNITS/ML 1000 mls 2,000 ML IV ONE (13:49)
[2020-01-08] MEDS ORDERED: Iohexol 350 (CONTRAST) 200 ML MDV IV ONE (13:49)
[2020-01-08] MEDS ORDERED: Lidocaine 1% VIAL 10 MG/ML VIAL ONE (13:49)
[2020-01-08] MEDS: Enoxaparin 40 MG/0.4 ML SYR SUBCUT SCH (14:30)
[2020-01-08] MEDS ORDERED: nitroGLYCERIN DRIP 25,000 MCG/250 ML BTL ONE (15:13)
[2020-01-08] MEDS ORDERED: VERAPAMIL 2.5 MG/ML 2 ML VIAL ** 5 mg/2 ml ONE (15:15)
[2020-01-08] MEDS ORDERED: ceFAZolin VIAL VIAL ONE (16:02)
[2020-01-08] MEDS ORDERED: ceFAZolin 1 GM X ONE DOSE (AddVan) IVPB (17:00)
[2020-01-08] MEDS: Albuterol HFA INHALER 8 gm MDI INH PRN (20:01)
[2020-01-09] MEDS: ZOSYN 3.375 GM Q8H per EXTENDED INFUSION IV SCH ×3 (03:51→23:28)
[2020-01-09] MEDS: Mometasone/Formoter 200/5 MDI INH SCH ×2 (07:55→21:02)
[2020-01-09] MEDS: CMCS:Pindolol 10 mg TAB (NF) PO SCH ×2 (08:07→23:22)
[2020-01-09] MEDS: Insulin GLARGINE 100 un/ml 10 ml VIAL SUBCUT SCH (08:08)
[2020-01-09 08:56] LABS: BUN/Creatinine Ratio 17.9 (8-20); Calcium 8.3 mg/dL (8.6-10.3); EGFR African American 104.1 (>60); Magnesium 1.9 mg/dL (1.9-2.7); Potassium 3.5 mmol/L (3.5-5.0)
[2020-01-09] MEDS: Enoxaparin 40 MG/0.4 ML SYR SUBCUT SCH (12:29)
[2020-01-10] MEDS: ZOSYN 3.375 GM Q8H per EXTENDED INFUSION IV SCH ×3 (04:27→21:08)
[2020-01-10] MEDS: Mometasone/Formoter 200/5 MDI INH SCH ×2 (07:52→20:51)
[2020-01-10] MEDS: Insulin GLARGINE 100 un/ml 10 ml VIAL SUBCUT SCH (09:04)
[2020-01-10] MEDS: CMCS:Pindolol 10 mg TAB (NF) PO SCH ×2 (09:05→22:25)
[2020-01-10] MEDS: Enoxaparin 40 MG/0.4 ML SYR SUBCUT SCH (12:42)
[2020-01-10] MEDS: Albuterol HFA INHALER 8 gm MDI INH PRN (17:49)
[2020-01-11] MEDS: ZOSYN 3.375 GM Q8H per EXTENDED INFUSION IV SCH ×4 (02:56→20:22)
[2020-01-11] MEDS: Mometasone/Formoter 200/5 MDI INH SCH ×2 (08:27→20:16)
[2020-01-11 08:28] LABS: Hematocrit 27 % (35-47); Hemoglobin 9.1 g/dL (12.0-16.0); Mean Corpuscular HGB Conc 34 g/dL (31-36); Mean Corpuscular Hemoglobin 31 pg (27-31); Mean Corpuscular Volume 90 fL (80-97); Platelet Count 239 10^3/uL (150-450); Red Blood Count 2.99 10^6 /uL (3.70-4.87); Red Cell Distribution Width 14 % (10-15); White Blood Count 8.2 10^3/uL (3.5-10.8)
[2020-01-11 08:43] LABS: BUN/Creatinine Ratio 20.7 (8-20); Calcium 8.4 mg/dL (8.6-10.3); EGFR Non-African American 101.6 (>60); Potassium 3.2 mmol/L (3.5-5.0)
[2020-01-11] MEDS: Insulin GLARGINE 100 un/ml 10 ml VIAL SUBCUT SCH (08:53)
[2020-01-11] MEDS: CMCS:Pindolol 10 mg TAB (NF) PO SCH ×2 (08:56→20:20)
[2020-01-11] MEDS: Enoxaparin 40 MG/0.4 ML SYR SUBCUT SCH (11:46)
[2020-01-11 14:30] LABS: C Reactive Protein 63.38 mg/L (<8.01)
[2020-01-11] MEDS ORDERED: Furosemide 20 mg/2 ml IV VIAL IV ONE (14:36)
[2020-01-11] MEDS ORDERED: Potassium Chlor 20 meq TAB.ER PO ONE (16:35)
[2020-01-12] MEDS: ZOSYN 3.375 GM Q8H per EXTENDED INFUSION IV SCH ×3 (02:19→16:26)
[2020-01-12 07:37] LABS: BUN/Creatinine Ratio 19.7 (8-20); C Reactive Protein 76.12 mg/L (<8.01); Calcium 8.4 mg/dL (8.6-10.3); EGFR African American 97.4 (>60); EGFR Non-African American 80.5 (>60); Potassium 3.8 mmol/L (3.5-5.0)
[2020-01-12 07:56] LABS: ABS Eosinophils 0.1 10^3/ul (0-0.6); ABS Monocytes 0.8 10^3/ul (0-0.8); ABS Neutrophils 5.3 10^3/ul (1.5-7.7); Hematocrit 28 % (35-47); Hemoglobin 9.3 g/dL (12.0-16.0); Lymphocyte % 13.6 %; Mean Corpuscular HGB Conc 34 g/dL (31-36); Mean Corpuscular Hemoglobin 31 pg (27-31); Mean Corpuscular Volume 91 fL (80-97); Mean Platelet Volume 7.4 fL (7.4-10.4); Nucleated Red Blood Cells % 0.1; Platelet Count 279 10^3/uL (150-450); Red Blood Count 3.06 10^6 /uL (3.70-4.87); Red Cell Distribution Width 15 % (10-15); White Blood Count 7.3 10^3/uL (3.5-10.8)
[2020-01-12] MEDS: Mometasone/Formoter 200/5 MDI INH SCH ×2 (08:05→20:03)
[2020-01-12] MEDS ORDERED: Insulin GLARGINE 100 un/ml 10 ml VIAL SUBCUT SCH ×2 (09:00)
[2020-01-12] MEDS: CMCS:Pindolol 10 mg TAB (NF) PO SCH ×2 (11:00→21:44)
[2020-01-12] MEDS ORDERED: Enoxaparin 40 MG/0.4 ML SYR SUBCUT SCH (12:00)
[2020-01-12] MEDS: Albuterol HFA INHALER 8 gm MDI INH PRN (20:04)
[2020-01-12] MEDS: Amoxicillin/Clavul 500/125 TAB (Augmentin 500 mg tab) PO SCH (21:44)
[2020-01-13 09:25] LABS: ABS Eosinophils 0.2 10^3/ul (0-0.6); ABS Monocytes 0.9 10^3/ul (0-0.8); ABS Neutrophils 5.8 10^3/ul (1.5-7.7); Eosinophil % 2.6 %; Hematocrit 28 % (35-47); Hemoglobin 9.5 g/dL (12.0-16.0); Lymphocyte % 12.5 %; Mean Corpuscular HGB Conc 34 g/dL (31-36); Mean Corpuscular Hemoglobin 31 pg (27-31); Mean Corpuscular Volume 90 fL (80-97); Mean Platelet Volume 7.4 fL (7.4-10.4); Nucleated Red Blood Cells % 0.1; Platelet Count 293 10^3/uL (150-450); Red Blood Count 3.13 10^6 /uL (3.70-4.87); Red Cell Distribution Width 15 % (10-15); White Blood Count 7.9 10^3/uL (3.5-10.8)
[2020-01-13] MEDS: Amoxicillin/Clavul 500/125 TAB (Augmentin 500 mg tab) PO SCH ×2 (09:28→21:52)
[2020-01-13] MEDS: Insulin GLARGINE 100 un/ml 10 ml VIAL SUBCUT SCH (09:28)
[2020-01-13] MEDS: Mometasone/Formoter 200/5 MDI INH SCH ×2 (09:29→19:50)
[2020-01-13] MEDS: CMCS:Pindolol 10 mg TAB (NF) PO SCH ×2 (09:29→21:55)
[2020-01-13 09:45] LABS: BUN/Creatinine Ratio 23.1 (8-20); Calcium 8.4 mg/dL (8.6-10.3); EGFR African American 107.8 (>60); EGFR Non-African American 89.1 (>60); Potassium 3.8 mmol/L (3.5-5.0)
[2020-01-13 09:55] LABS: Activated Partial Thrombo Time 25.7 seconds (26.0-38.0); INR 1.08 (0.82-1.09)
[2020-01-13] MEDS ORDERED: Bupivacaine 0.25% SDV 30 ML ONE (10:28)
[2020-01-13] MEDS ORDERED: ceFAZolin 2 GM in NS PREMIX 2 GM/100 ML BAG IVPB ONE (10:54)
[2020-01-13] MEDS ORDERED: Midazolam 2 mg/2 ml VIAL 1 mg/ml 2 ml VIAL (2 mg) ONE (11:41)
[2020-01-13] MEDS ORDERED: Lidocaine 2% PF 5 ML VIAL ONE (11:43)
[2020-01-13] MEDS ORDERED: fentaNYL 100 mcg/2 ml 50 MCG/ML VIAL ONE (11:43)
[2020-01-13] MEDS ORDERED: Lidocaine 1% VIAL 10 MG/ML VIAL ONE (11:46)
[2020-01-13] MEDS ORDERED: Propofol 10 MG/ML 20 ML BTL ONE (12:00)
[2020-01-13] MEDS ORDERED: Levalbuterol 0.63MG/3ML NEB UNIT OF USE INH PRN (12:27)
[2020-01-13] MEDS ORDERED: Naloxone 0.4 mg VIAL 0.4 mg/ml 1 ml VIAL IV PRN (12:27)
[2020-01-13] MEDS ORDERED: Furosemide 40 mg/4 ml IV VIAL IV ONE (15:48)
[2020-01-14 06:10] LABS: Hematocrit 28 % (35-47); Hemoglobin 9.4 g/dL (12.0-16.0); Mean Corpuscular HGB Conc 34 g/dL (31-36); Mean Corpuscular Hemoglobin 30 pg (27-31); Mean Corpuscular Volume 89 fL (80-97); Mean Platelet Volume 6.9 fL (7.4-10.4); Platelet Count 289 10^3/uL (150-450); Red Blood Count 3.12 10^6 /uL (3.70-4.87); Red Cell Distribution Width 15 % (10-15); White Blood Count 8.9 10^3/uL (3.5-10.8)
[2020-01-14 06:16] LABS: Calcium 8.5 mg/dL (8.6-10.3); Potassium 3.8 mmol/L (3.5-5.0)
[2020-01-14 06:22] LABS: BUN/Creatinine Ratio 21.2 (8-20); EGFR African American 105.9 (>60); EGFR Non-African American 87.5 (>60)
[2020-01-14] MEDS: Mometasone/Formoter 200/5 MDI INH SCH (07:03)
[2020-01-14] MEDS: Amoxicillin/Clavul 500/125 TAB (Augmentin 500 mg tab) PO SCH (10:32)
[2020-01-14] MEDS: CMCS:Pindolol 10 mg TAB (NF) PO SCH (10:33)
[2020-01-14] MEDS: Insulin GLARGINE 100 un/ml 10 ml VIAL SUBCUT SCH (10:35)
[2020-01-14] MEDS ORDERED: Furosemide 40 mg/4 ml IV VIAL IV ONE (11:03)
[2020-01-14] MEDS ORDERED: Furosemide 40 mg/4 ml IV VIAL ONE (11:25)
[2020-01-14 17:07] VITALS: BP 156/63
== END 2020-01-14 17:40 | DRG 853 ==
LOC: ED 18:12 → MED 23:52
PROVIDERS: ADMIT Internal Medicine; ATTEND Internal Medicine

== ENCOUNTER 2020-05-30 23:28 | Inpatient (IN) ==
[2020-05-30] MEDS ORDERED: NS 0.9% 1000 ml BAG 1,000 ML IV ONE (23:54)
[2020-05-30] MEDS ORDERED: Albuterol HFA INHALER 8 gm MDI INH ONE (23:59)
[2020-05-31] LABS: Hematocrit 38 % (35-47); Hemoglobin 12.6 g/dL (12.0-16.0); Mean Corpuscular HGB Conc 33 g/dL (31-36); Mean Corpuscular Hemoglobin 30 pg (27-31); Mean Corpuscular Volume 89 fL (80-97); Mean Platelet Volume 7.9 fL (7.4-10.4); Platelet Count 296 10^3/uL (150-450); Red Blood Count 4.25 10^6 /uL (3.70-4.87); Red Cell Distribution Width 15 % (10-15)
[2020-05-31 00:05] LABS: INR 1.23 (0.82-1.09)
[2020-05-31 00:17] LABS: ALT 14 U/L (7-52); AST 12 U/L (13-39); Albumin 3.6 g/dL (3.2-5.2); Alkaline Phosphatase 88 U/L (34-104); BUN/Creatinine Ratio 41.7 (8-20); Blood Urea Nitrogen 45 mg/dL (6-24); C Reactive Protein 341.41 mg/L (<8.01); CO2 Carbon Dioxide 23 mmol/L (22-32); Calcium 9.9 mg/dL (8.6-10.3); Chloride 100 mmol/L (101-111); EGFR Non-African American 49.6 (>60); Globulin 3.7 g/dL (2-4); Glucose 219 mg/dL (70-100); Sodium 134 mmol/L (135-145); Total Protein 7.3 g/dL (6.4-8.9)
[2020-05-31 00:20] LABS: Influenza A Molecular Negative (Negative); Influenza B Molecular Negative (Negative)
[2020-05-31 00:29] LABS: Anion Gap 11 mmol/L (2-11); Potassium 5.1 mmol/L (3.5-5.0)
[2020-05-31] MEDS ORDERED: Piperacillin/Tazobac ADVAN 3.375 GM in NS 0.9% 100 ml BAG 100 ML IVPB ONE (00:39)
[2020-05-31 00:42] LABS: ABS Basophils 0.1 10^3/ul (0-0.2); ABS Lymphocytes 0.9 10^3/ul (1.0-4.8); ABS Monocytes 1.4 10^3/ul (0-0.8); ABS Neutrophils 22.7 10^3/ul (1.5-7.7); Lymphocyte % 3.5 %
[2020-05-31 00:49] LABS: Troponin I 0.03 ng/mL (<0.03)
[2020-05-31] MEDS ORDERED: Dextrose 50% Syringe 50 ml 25 GM/50 ML SYRINGE IV PUSH PRN (01:52)
[2020-05-31] MEDS ORDERED: Zosyn per Pharmacy NOTE FOLLOW UP SCH (02:00)
[2020-05-31] MEDS: Enoxaparin 40 MG/0.4 ML SYR SUBCUT SCH (03:22)
[2020-05-31] MEDS: NS 0.9% 1000 ml BAG 1,000 ML IV SCH ×2 (03:22→18:01)
[2020-05-31] MEDS: ZOSYN 3.375 GM Q8H per EXTENDED INFUSION IV SCH ×3 (06:05→21:58)
[2020-05-31 06:53] LABS: Anion Gap 12 mmol/L (2-11); BUN/Creatinine Ratio 41.7 (8-20); Blood Urea Nitrogen 53 mg/dL (6-24); CO2 Carbon Dioxide 20 mmol/L (22-32); Calcium 9.2 mg/dL (8.6-10.3); Chloride 103 mmol/L (101-111); EGFR African American 49.8 (>60); EGFR Non-African American 41.1 (>60); Glucose 316 mg/dL (70-100); Sodium 135 mmol/L (135-145)
[2020-05-31 07:02] LABS: Troponin I 0.03 ng/mL (<0.03)
[2020-05-31] MEDS: Mometasone/Formoter 200/5 MDI INH SCH ×2 (07:18→20:23)
[2020-05-31] MEDS: CMCS:Pindolol 10 mg TAB (NF) PO SCH ×2 (09:03→21:22)
[2020-05-31] MEDS: Albuterol HFA INHALER 8 gm MDI INH PRN (20:22)
[2020-06-01] MEDS: NS 0.9% 1000 ml BAG 1,000 ML IV SCH (04:41)
[2020-06-01 04:59] LABS: Hematocrit 29 % (35-47); Mean Corpuscular HGB Conc 34 g/dL (31-36); Mean Corpuscular Hemoglobin 30 pg (27-31); Mean Corpuscular Volume 89 fL (80-97); Mean Platelet Volume 7.6 fL (7.4-10.4); Platelet Count 271 10^3/uL (150-450); Red Blood Count 3.32 10^6 /uL (3.70-4.87); Red Cell Distribution Width 15 % (10-15); White Blood Count 18.3 10^3/uL (3.5-10.8)
[2020-06-01 05:19] LABS: BUN/Creatinine Ratio 47.9 (8-20); Calcium 8.5 mg/dL (8.6-10.3); EGFR African American 94.3 (>60); EGFR Non-African American 77.9 (>60); Potassium 3.9 mmol/L (3.5-5.0)
[2020-06-01 05:28] LABS: ABS Lymphocytes 1.2 10^3/ul (1.0-4.8); ABS Monocytes 1.4 10^3/ul (0-0.8); ABS Neutrophils 15.7 10^3/ul (1.5-7.7); Eosinophil % 0.1 %; Lymphocyte % 6.4 %
[2020-06-01] MEDS: ZOSYN 3.375 GM Q8H per EXTENDED INFUSION IV SCH ×3 (06:04→21:32)
[2020-06-01] MEDS: Mometasone/Formoter 200/5 MDI INH SCH ×2 (07:15→19:23)
[2020-06-01] MEDS: Enoxaparin 40 MG/0.4 ML SYR SUBCUT SCH (08:58)
[2020-06-01] MEDS: Insulin GLARGINE 100 un/ml 10 ml VIAL SUBCUT SCH (08:58)
[2020-06-01] MEDS: CMCS:Pindolol 10 mg TAB (NF) PO SCH ×2 (09:01→21:33)
[2020-06-01] MEDS: Albuterol HFA INHALER 8 gm MDI INH PRN (19:22)
[2020-06-02] MEDS: ZOSYN 3.375 GM Q8H per EXTENDED INFUSION IV SCH ×3 (05:58→21:57)
[2020-06-02 06:10] LABS: Hematocrit 29 % (35-47); Hemoglobin 10.1 g/dL (12.0-16.0); Mean Corpuscular HGB Conc 34 g/dL (31-36); Mean Corpuscular Hemoglobin 30 pg (27-31); Mean Corpuscular Volume 88 fL (80-97); Mean Platelet Volume 7.6 fL (7.4-10.4); Platelet Count 329 10^3/uL (150-450); Red Blood Count 3.33 10^6 /uL (3.70-4.87); Red Cell Distribution Width 15 % (10-15); White Blood Count 17.8 10^3/uL (3.5-10.8)
[2020-06-02] MEDS: Mometasone/Formoter 200/5 MDI INH SCH ×2 (07:32→19:38)
[2020-06-02 07:38] LABS: ABS Basophils 0.1 10^3/ul (0-0.2); ABS Eosinophils 0.2 10^3/ul (0-0.6); ABS Lymphocytes 1.7 10^3/ul (1.0-4.8); ABS Monocytes 1.3 10^3/ul (0-0.8); ABS Neutrophils 14.5 10^3/ul (1.5-7.7); Eosinophil % 1.1 %; Lymphocyte % 9.4 %
[2020-06-02] MEDS: Insulin GLARGINE 100 un/ml 10 ml VIAL SUBCUT SCH (08:20)
[2020-06-02] MEDS: CMCS:Pindolol 10 mg TAB (NF) PO SCH ×2 (08:29→21:59)
[2020-06-02] MEDS: Enoxaparin 40 MG/0.4 ML SYR SUBCUT SCH (08:31)
[2020-06-03 01:36] LABS: Urine Appearance Cloudy; Urine Bilirubin Negative (Negative); Urine Blood Negative (Negative); Urine Color Yellow; Urine Glucose 2+(150 mg/dL) (Negative); Urine Ketones Negative (Negative); Urine Nitrite Negative (Negative); Urine Protein 2+(100 mg/dL) (Negative); Urine Specific Gravity 1.034 (1.010-1.030); Urine Urobilinogen Positive (Negative)
[2020-06-03] MEDS: ZOSYN 3.375 GM Q8H per EXTENDED INFUSION IV SCH ×3 (05:09→21:03)
[2020-06-03 06:45] LABS: Hematocrit 33 % (35-47); Hemoglobin 10.7 g/dL (12.0-16.0); Mean Corpuscular HGB Conc 33 g/dL (31-36); Mean Corpuscular Hemoglobin 29 pg (27-31); Mean Corpuscular Volume 90 fL (80-97); Mean Platelet Volume 7.7 fL (7.4-10.4); Platelet Count 364 10^3/uL (150-450); Red Blood Count 3.67 10^6 /uL (3.70-4.87); Red Cell Distribution Width 15 % (10-15); White Blood Count 15.2 10^3/uL (3.5-10.8)
[2020-06-03 06:58] LABS: BUN/Creatinine Ratio 25.5 (8-20); C Reactive Protein 118.53 mg/L (<8.01); Calcium 8.5 mg/dL (8.6-10.3); EGFR African American 130.7 (>60); Magnesium 1.9 mg/dL (1.9-2.7); Potassium 3.6 mmol/L (3.5-5.0)
[2020-06-03] MEDS: Mometasone/Formoter 200/5 MDI INH SCH ×2 (07:43→19:59)
[2020-06-03 08:05] LABS: Polychromasia 1+
[2020-06-03 08:06] LABS: ABS Basophils 0.1 10^3/ul (0-0.2); ABS Eosinophils 0.2 10^3/ul (0-0.6); ABS Lymphocytes 1.5 10^3/ul (1.0-4.8); ABS Neutrophils 12.5 10^3/ul (1.5-7.7); Eosinophil % 1.4 %; Lymphocyte % 10.1 %
[2020-06-03] MEDS: Insulin GLARGINE 100 un/ml 10 ml VIAL SUBCUT SCH (09:51)
[2020-06-03] MEDS: CMCS:Pindolol 10 mg TAB (NF) PO SCH ×2 (09:55→21:02)
[2020-06-03] MEDS: Enoxaparin 40 MG/0.4 ML SYR SUBCUT SCH (09:56)
[2020-06-03] MEDS: Albuterol HFA INHALER 8 gm MDI INH PRN (16:46)
[2020-06-03] MEDS ORDERED: Albuterol/Ipratropium NEB.SOL (2.5/0.5 MG) 3 ML NEB.SOLN INH PRN (18:44)
[2020-06-04] MEDS: ZOSYN 3.375 GM Q8H per EXTENDED INFUSION IV SCH ×2 (05:24→14:28)
[2020-06-04 05:34] LABS: Hematocrit 30 % (35-47); Hemoglobin 9.9 g/dL (12.0-16.0); Mean Corpuscular HGB Conc 33 g/dL (31-36); Mean Corpuscular Hemoglobin 29 pg (27-31); Mean Corpuscular Volume 89 fL (80-97); Mean Platelet Volume 6.8 fL (7.4-10.4); Platelet Count 371 10^3/uL (150-450); Red Blood Count 3.39 10^6 /uL (3.70-4.87); Red Cell Distribution Width 15 % (10-15); White Blood Count 15.9 10^3/uL (3.5-10.8)
[2020-06-04 05:50] LABS: BUN/Creatinine Ratio 23.7 (8-20); Calcium 8.4 mg/dL (8.6-10.3); EGFR African American 120.6 (>60); EGFR Non-African American 99.6 (>60); Potassium 3.7 mmol/L (3.5-5.0)
[2020-06-04 06:21] LABS: ABS Eosinophils 0.2 10^3/ul (0-0.6); ABS Lymphocytes 1.4 10^3/ul (1.0-4.8); ABS Monocytes 1.1 10^3/ul (0-0.8); ABS Neutrophils 13.2 10^3/ul (1.5-7.7); Eosinophil % 1.1 %; Lymphocyte % 8.7 %; Nucleated Red Blood Cells % 0.1
[2020-06-04] MEDS: Mometasone/Formoter 200/5 MDI INH SCH ×2 (08:02→19:45)
[2020-06-04] MEDS: CMCS:Pindolol 10 mg TAB (NF) PO SCH ×2 (09:15→20:51)
[2020-06-04] MEDS: Insulin GLARGINE 100 un/ml 10 ml VIAL SUBCUT SCH (09:15)
[2020-06-04] MEDS: Enoxaparin 40 MG/0.4 ML SYR SUBCUT SCH (09:15)
[2020-06-04] MEDS: Albuterol HFA INHALER 8 gm MDI INH PRN (14:46)
[2020-06-04] MEDS: methylPREDNISolone SOD 40 mg/ml 1 ml VIAL IV SCH (15:07)
[2020-06-04] MEDS: Albuterol/Ipratropium NEB.SOL (2.5/0.5 MG) 3 ML NEB.SOLN INH SCH (19:58)
[2020-06-04] MEDS: cefTRIAXone 1 gm/50 mL NS BAG 1 GM/50 ML BAG IVPB SCH (20:21)
[2020-06-04] MEDS: Azithromycin 500 mg/250 ml NS 500 MG/250 ML BAG IVPB SCH (20:50)
[2020-06-05] MEDS: Albuterol/Ipratropium NEB.SOL (2.5/0.5 MG) 3 ML NEB.SOLN INH SCH ×4 (00:59→19:52)
[2020-06-05] MEDS: methylPREDNISolone SOD 40 mg/ml 1 ml VIAL IV SCH (03:20)
[2020-06-05] MEDS: CMCS:Pindolol 10 mg TAB (NF) PO SCH ×2 (07:42→21:04)
[2020-06-05] MEDS: Enoxaparin 40 MG/0.4 ML SYR SUBCUT SCH (07:42)
[2020-06-05] MEDS: Mometasone/Formoter 200/5 MDI INH SCH ×3 (08:03→19:51)
[2020-06-05] MEDS: Insulin GLARGINE 100 un/ml 10 ml VIAL SUBCUT SCH (10:08)
[2020-06-05] MEDS ORDERED: methylPREDNISolone SOD 40 mg/ml 1 ml VIAL IV SCH (15:00)
[2020-06-05] MEDS: cefTRIAXone 1 gm/50 mL NS BAG 1 GM/50 ML BAG IVPB SCH (20:54)
[2020-06-05] MEDS: Azithromycin 500 mg/250 ml NS 500 MG/250 ML BAG IVPB SCH (21:34)
[2020-06-06] MEDS: Albuterol/Ipratropium NEB.SOL (2.5/0.5 MG) 3 ML NEB.SOLN INH SCH ×4 (01:09→19:24)
[2020-06-06 07:18] LABS: Hematocrit 30 % (35-47); Hemoglobin 9.9 g/dL (12.0-16.0); Mean Corpuscular HGB Conc 33 g/dL (31-36); Mean Corpuscular Hemoglobin 29 pg (27-31); Mean Corpuscular Volume 90 fL (80-97); Mean Platelet Volume 6.9 fL (7.4-10.4); Platelet Count 420 10^3/uL (150-450); Red Blood Count 3.39 10^6 /uL (3.70-4.87); Red Cell Distribution Width 15 % (10-15); White Blood Count 12.6 10^3/uL (3.5-10.8)
[2020-06-06] MEDS: Mometasone/Formoter 200/5 MDI INH SCH ×2 (07:26→19:24)
[2020-06-06 08:24] LABS: ABS Eosinophils 0.2 10^3/ul (0-0.6); ABS Lymphocytes 1.5 10^3/ul (1.0-4.8); ABS Monocytes 1.1 10^3/ul (0-0.8); ABS Neutrophils 9.8 10^3/ul (1.5-7.7); Eosinophil % 1.2 %; Lymphocyte % 11.9 %
[2020-06-06] MEDS: CMCS:Pindolol 10 mg TAB (NF) PO SCH ×2 (09:32→21:32)
[2020-06-06] MEDS: Insulin GLARGINE 100 un/ml 10 ml VIAL SUBCUT SCH (09:41)
[2020-06-06] MEDS: Enoxaparin 40 MG/0.4 ML SYR SUBCUT SCH (09:42)
[2020-06-06] MEDS ORDERED: Piperacillin/Tazobac ADVAN 3.375 GM in NS 0.9% 100 ml BAG 100 ML IV ONE (10:49)
[2020-06-06] MEDS ORDERED: Zosyn per Pharmacy NOTE FOLLOW UP SCH (11:00)
[2020-06-06] MEDS ORDERED: Vancomycin 1,000 MG in NS 0.9% 250 ml 250 ML IVPB ONE (13:00)
[2020-06-06] MEDS ORDERED: Vancomycin per Pharmacy 1 EA NOTE FOLLOW UP SCH (13:00)
[2020-06-06] MEDS ORDERED: Furosemide 40 mg/4 ml IV VIAL IV ONE (17:29)
[2020-06-06] MEDS ORDERED: Furosemide 20 mg/2 ml IV VIAL IV ONE ×2 (18:00→19:06)
[2020-06-06 20:53] LABS: Glucose Confirmatory 400 mg/dL (70-100)
[2020-06-07] MEDS: Vancomycin 750 MG in NS 0.9% 250 ML IVPB SCH ×2 (00:09→11:49)
[2020-06-07] MEDS: Albuterol/Ipratropium NEB.SOL (2.5/0.5 MG) 3 ML NEB.SOLN INH SCH ×2 (00:43→07:54)
[2020-06-07] MEDS: Mometasone/Formoter 200/5 MDI INH SCH ×2 (07:54→19:31)
[2020-06-07] MEDS ORDERED: Albuterol/Ipratropium NEB.SOL (2.5/0.5 MG) 3 ML NEB.SOLN INH PRN (07:56)
[2020-06-07] MEDS: Insulin GLARGINE 100 un/ml 10 ml VIAL SUBCUT SCH (08:59)
[2020-06-07] MEDS: Enoxaparin 40 MG/0.4 ML SYR SUBCUT SCH (09:03)
[2020-06-07] MEDS: CMCS:Pindolol 10 mg TAB (NF) PO SCH ×2 (09:05→20:35)
[2020-06-08] MEDS: Vancomycin 750 MG in NS 0.9% 250 ML IVPB SCH ×2 (00:15→13:48)
[2020-06-08 06:17] LABS: Hematocrit 31 % (35-47); Hemoglobin 10.2 g/dL (12.0-16.0); Mean Corpuscular HGB Conc 33 g/dL (31-36); Mean Corpuscular Hemoglobin 29 pg (27-31); Mean Corpuscular Volume 88 fL (80-97); Mean Platelet Volume 6.8 fL (7.4-10.4); Platelet Count 418 10^3/uL (150-450); Red Blood Count 3.47 10^6 /uL (3.70-4.87); Red Cell Distribution Width 15 % (10-15); White Blood Count 11.3 10^3/uL (3.5-10.8)
[2020-06-08 06:41] LABS: BUN/Creatinine Ratio 35.3 (8-20); Calcium 8.6 mg/dL (8.6-10.3); EGFR African American 142.6 (>60); EGFR Non-African American 117.9 (>60); Magnesium 1.7 mg/dL (1.9-2.7); Potassium 3.9 mmol/L (3.5-5.0)
[2020-06-08] MEDS: Mometasone/Formoter 200/5 MDI INH SCH ×2 (08:00→19:51)
[2020-06-08] MEDS ORDERED: Magnesium Sulfate 2 gm BAG 2 GM/50 ML BAG IVPB ONE (08:30)
[2020-06-08 08:56] LABS: ABS Eosinophils 0.1 10^3/ul (0-0.6); ABS Lymphocytes 1.8 10^3/ul (1.0-4.8); ABS Monocytes 0.8 10^3/ul (0-0.8); ABS Neutrophils 8.5 10^3/ul (1.5-7.7); Lymphocyte % 16.2 %
[2020-06-08] MEDS: Insulin GLARGINE 100 un/ml 10 ml VIAL SUBCUT SCH (09:01)
[2020-06-08] MEDS: Enoxaparin 40 MG/0.4 ML SYR SUBCUT SCH (09:03)
[2020-06-08] MEDS: CMCS:Pindolol 10 mg TAB (NF) PO SCH ×2 (09:06→21:42)
[2020-06-08] MEDS ORDERED: Vancomycin Trough Check NOTE FOLLOW UP ONE (11:30)
[2020-06-08 12:55] LABS: Vancomycin Trough 8.9 mcg/mL
[2020-06-08 13:00] LABS: EGFR African American 130.7 (>60)
[2020-06-08] MEDS: Vancomycin 1000 MG in NS 0.9% 250 ML IVPB SCH (14:07)
[2020-06-09] MEDS: Vancomycin 1000 MG in NS 0.9% 250 ML IVPB SCH ×2 (03:03→14:50)
[2020-06-09 07:02] LABS: Hematocrit 31 % (35-47); Mean Corpuscular HGB Conc 32 g/dL (31-36); Mean Corpuscular Hemoglobin 29 pg (27-31); Mean Corpuscular Volume 90 fL (80-97); Mean Platelet Volume 6.7 fL (7.4-10.4); Platelet Count 447 10^3/uL (150-450); Red Blood Count 3.44 10^6 /uL (3.70-4.87); Red Cell Distribution Width 16 % (10-15); White Blood Count 15.7 10^3/uL (3.5-10.8)
[2020-06-09 07:21] LABS: BUN/Creatinine Ratio 35.2 (8-20); Calcium 8.2 mg/dL (8.6-10.3); EGFR African American 97.4 (>60); EGFR Non-African American 80.5 (>60); Potassium 4.1 mmol/L (3.5-5.0)
[2020-06-09] MEDS: Mometasone/Formoter 200/5 MDI INH SCH ×2 (08:38→19:52)
[2020-06-09 09:31] LABS: ABS Eosinophils 0.1 10^3/ul (0-0.6); ABS Lymphocytes 1.9 10^3/ul (1.0-4.8); ABS Monocytes 1.3 10^3/ul (0-0.8); ABS Neutrophils 12.4 10^3/ul (1.5-7.7); Eosinophil % 0.6 %; Lymphocyte % 12.3 %
[2020-06-09] MEDS: Enoxaparin 40 MG/0.4 ML SYR SUBCUT SCH (09:41)
[2020-06-09] MEDS: Insulin GLARGINE 100 un/ml 10 ml VIAL SUBCUT SCH (09:41)
[2020-06-09] MEDS: CMCS:Pindolol 10 mg TAB (NF) PO SCH ×2 (09:46→21:00)
[2020-06-09 15:34] LABS: C Reactive Protein 14.81 mg/L (<8.01)
[2020-06-10] MEDS: Vancomycin 1000 MG in NS 0.9% 250 ML IVPB SCH ×2 (02:27→15:12)
[2020-06-10 05:47] LABS: EGFR African American 120.6 (>60); EGFR Non-African American 99.6 (>60)
[2020-06-10] MEDS: Mometasone/Formoter 200/5 MDI INH SCH ×2 (07:42→19:37)
[2020-06-10 09:32] LABS: ABS Eosinophils 0.2 10^3/ul (0-0.6); ABS Lymphocytes 1.5 10^3/ul (1.0-4.8); ABS Monocytes 1.1 10^3/ul (0-0.8); ABS Neutrophils 10.7 10^3/ul (1.5-7.7); Eosinophil % 1.2 %; Hematocrit 29 % (35-47); Hemoglobin 9.7 g/dL (12.0-16.0); Lymphocyte % 10.8 %; Mean Corpuscular HGB Conc 33 g/dL (31-36); Mean Corpuscular Hemoglobin 29 pg (27-31); Mean Corpuscular Volume 88 fL (80-97); Mean Platelet Volume 6.7 fL (7.4-10.4); Platelet Count 409 10^3/uL (150-450); Red Cell Distribution Width 16 % (10-15); White Blood Count 13.5 10^3/uL (3.5-10.8)
[2020-06-10] MEDS: Insulin GLARGINE 100 un/ml 10 ml VIAL SUBCUT SCH (09:34)
[2020-06-10] MEDS: CMCS:Pindolol 10 mg TAB (NF) PO SCH ×2 (09:34→20:53)
[2020-06-10] MEDS: Enoxaparin 40 MG/0.4 ML SYR SUBCUT SCH (09:34)
[2020-06-10 09:56] LABS: BUN/Creatinine Ratio 28.6 (8-20); Calcium 8.2 mg/dL (8.6-10.3); EGFR Non-African American 105.8 (>60); Potassium 4.1 mmol/L (3.5-5.0)
[2020-06-10] MEDS ORDERED: Vancomycin Trough Check NOTE FOLLOW UP ONE (14:00)
[2020-06-11] MEDS: Vancomycin 1000 MG in NS 0.9% 250 ML IVPB SCH ×2 (02:07→13:03)
[2020-06-11] MEDS: Mometasone/Formoter 200/5 MDI INH SCH ×2 (07:04→19:37)
[2020-06-11] MEDS ORDERED: Insulin GLARGINE 100 un/ml 10 ml VIAL SUBCUT SCH (09:00)
[2020-06-11] MEDS: Enoxaparin 40 MG/0.4 ML SYR SUBCUT SCH (09:28)
[2020-06-11] MEDS: CMCS:Pindolol 10 mg TAB (NF) PO SCH ×3 (09:28→21:55)
[2020-06-12] MEDS: Mometasone/Formoter 200/5 MDI INH SCH ×2 (08:04→20:24)
[2020-06-12] MEDS: CMCS:Pindolol 10 mg TAB (NF) PO SCH ×2 (11:17→20:07)
[2020-06-12] MEDS: Enoxaparin 40 MG/0.4 ML SYR SUBCUT SCH (11:17)
[2020-06-12] MEDS ORDERED: Vancomycin Trough Check NOTE FOLLOW UP ONE (14:00)
[2020-06-13] MEDS: Mometasone/Formoter 200/5 MDI INH SCH ×2 (07:33→19:50)
[2020-06-13] MEDS: CMCS:Pindolol 10 mg TAB (NF) PO SCH (09:09)
[2020-06-13] MEDS: Enoxaparin 40 MG/0.4 ML SYR SUBCUT SCH (09:13)
[2020-06-13] MEDS ORDERED: Morphine ORAL CONCENTRATE 5 MG/0.25 ML ORAL.SYRIN SL PRN (13:35)
[2020-06-14] MEDS: CMCS:Pindolol 10 mg TAB (NF) PO SCH ×2 (00:07→07:54)
[2020-06-14] MEDS: Mometasone/Formoter 200/5 MDI INH SCH (08:00)
[2020-06-15 08:02] VITALS: BP 137/57
== END 2020-06-15 09:05 | disposition hospice, inpatient (51) | DRG 871 ==
LOC: ED 23:28 → MED 05-31 01:48
PROVIDERS: ADMIT Internal Medicine; ATTEND Student in an Organized Health Care Education/Training Program